=== PATIENT | female | born 1935 | race Caucasian/White ===

== ENCOUNTER 2016-06-16 18:08 | Inpatient (IN) | payer MEDICARE, OTHER ==
[~2016-06-16] VITALS: Ht 154.9 cm; Wt 81.2 kg
[~2016-06-16 18:08] MED LIST: ASPI81CH CHEW; BUME1TAB PO; CARD240C6 PO; CEFT250T8 PO; CLAR10CA3 PO; LEVO75TA3 PO; OXYB5TAB10 PO; POTA10TA8 PO; PRED10 PO; VENTAER INH
[2016-06-16 18:32] VITALS: BP 189/80; PULSE 75; RESP 16; TEMP 98; O2SAT 97
[2016-06-16 18:36] VITALS: BP 189/80; PULSE 79; RESP 16; O2SAT 98
[2016-06-16] MEDS ORDERED: SODIUM CHLORIDE 0.9% FLUSH 5 ML FLUSH IVF PRN ×2 (18:45→21:00)
--- NOTE | 2016-06-16 19:24 | PD ---
HPI Chief Complaint: Neuro Symptoms/ Deficits Time Seen by Provider: 18:35 Travel History International Travel<30 days: No Contact w/Intl Traveler<30days: No Traveled to known affect area: No History of Present Illness HPI 80yo F with PMH of HTN, CHF, afib not on anticoagulation, CKD, CAD presents to the ED with c/o slurred speech that resolved today. Pt was on the phone with daughter at around 2pm and daughter states she had slurred speech. Daughter states she went to see her at around 4:30pm and her speech has improved but not at baseline. States now it is better but thinks she has fear in her voice. Pt has been feeling generalized weakness since last night. Denies any fall, chest pain, sob, n/v, abdominal pain, focal numbness. Pt has been recently treated for UTI. Pt was here at [place] 04/2016 for SOB and had been admitted for observation. Pt states she did not take her aspirin today. PFSH Past Medical History Arthritis: Yes Anxiety: No Depression: No Heart Rhythm Problems: Yes (A FIB) Cancer: Yes (SKIN FACE) Cardiovascular Problems: Yes High Cholesterol: Yes Chest Pain: Yes Congestive Heart Failure: Yes Coronary Artery Disease: Yes Diabetes: No Diminished Hearing: No Endocrine: Yes Gastrointestinal Disorders: No Glaucoma: No Genitourinary: Yes (Stage 4 kidney disease) Hepatitis: No Hiatal Hernia: No Hypertension: Yes Immune Disorder: No Musculoskeletal: Yes Neurologic: Yes Psychiatric: No Reproductive: No Respiratory: No Immunizations Current: Yes Renal Failure: Yes (STAGE 4-NOT ON DIALYSIS) Thyroid Disease: Yes (Hypothyrodism) Influenza Vaccination: Yes ?: Not Menopausal: Yes : 5 Para: 5 Miscarriage: 0 : 0 Past Surgical History Abdominal Surgery: No Body Medical Devices: Left hip replacement Cardiac Surgery: Yes (PACEMAKER X 3) Ear Surgery: No Endocrine Surgery: No Eye Surgery: Yes (BL CATARACT REMOVAL, BL LENSE IMPLANTS) Genitourinary Surgery: No Gynecologic Surgery: No Joint Replacement: Yes (R KNEE, L HIP) Oral Surgery: No Pacemaker: Yes Thoracic Surgery: No Other Surgery: Yes Social History Alcohol Use: No Tobacco Use: No Substance Use: No Allergies-Medications (Allergen,Severity, Reaction): Coded Allergies: CRESTOR (Unverified Allergy, Severe, 06/16/16) Coumadin (Unverified Allergy, Severe, 06/16/16) Lipitor (Unverified Allergy, Severe, 06/16/16) Motrin (Unverified Allergy, Severe, 06/16/16) Paxil (Unverified Allergy, Severe, 06/16/16) Reported Meds & Prescriptions Reported Meds & Active Scripts Active Ceftin (Cefuroxime Axetil) 250 Mg Tab 250 Mg PO BID 7 Days Ventolin Hfa 18 GM Inh (Albuterol Sulfate) 90 Mcg/Act Aer 2 Puff INH Q4-6H PRN Prednisone 10 Mg Tab 10 Mg PO DIRECTED 9 Days Take THREE Times daily for 3 Days, then TWICE daily for 3 days, then ONCE a day for 3 Days. Reported Potassium Chloride CR (Potassium Chloride) 10 Meq Tab 10 Meq PO DAILY Ditropan (Oxybutynin Chloride) 5 Mg Tab 5 Mg PO DAILY Claritin (Loratadine) 10 Mg Cap 10 Mg PO DAILY Levothyroxine (Levothyroxine Sodium) 75 Mcg Tab 75 Mcg PO DAILY Cardizem CD 24 HR (Diltiazem CD 24 HR) 240 Mg Caper 240 Mg PO DAILY Bumetanide 1 Mg Tab 1 Mg PO BID Aspirin 81 Mg Chew 81 Mg CHEW BID Review of Systems Except as stated in HPI: all other systems reviewed are Neg Physical Exam Narrative GENERAL: 80yo F not in acute distress. SKIN: Warm and dry. HEAD: Atraumatic. Normocephalic. EYES: Pupils equal and round. No scleral icterus. No injection or drainage. ENT: No nasal bleeding or discharge. Mucous membranes pink and moist. NECK: Trachea midline. No JVD. CARDIOVASCULAR: Regular rate and rhythm. No murmur appreciated. RESPIRATORY: No accessory muscle use. Clear to auscultation. Breath sounds equal bilaterally. GASTROINTESTINAL: Abdomen soft, non-tender, nondistended. Hepatic and splenic margins not palpable. MUSCULOSKELETAL: No obvious deformities. No clubbing. No cyanosis. No edema. NEUROLOGICAL: Awake and alert. No obvious cranial nerve deficits. NIH stroke scale 4. Pt has some effort against gravity in bilateral lower extremity but falls to bed by 5 seconds. PSYCHIATRIC: Appropriate mood and affect; insight and judgment normal. Data Data Last Documented VS Vital Signs Date Time Temp Pulse Resp B/P Pulse Ox O2 Delivery O2 Flow Rate FiO2 06/16/16 20:05 16 98 Room Air 06/16/16 18:36 79 189/80 06/16/16 18:32 98.0 Orders Electrocardiogram (06/16/16 18:36) Prothrombin Time / Inr (Pt) (06/16/16 18:36) Act Partial Throm Time (Ptt) (06/16/16 18:36) Complete Blood Count With Diff (06/16/16 18:36) Basic Metabolic Panel (Bmp) (06/16/16 18:36) Troponin I (06/16/16 18:36) Urinalysis - C+S If Indicated (06/16/16 18:36) Ct Brain W/O Iv Contrast(Rout) (06/16/16 18:36) Ecg Monitoring (06/16/16 18:36) Iv Access Insert/Monitor (06/16/16 18:36) Oximetry (06/16/16 18:36) Sodium Chloride 0.9% Flush (Ns Flush) (06/16/16 18:45) Consult Neurology (06/16/16 ) Sodium Polysty Sulfate Liq (Kayexalate L (06/16/16 20:00) Aspirin Chew (Aspirin Chew) (06/16/16 20:00) Sodium Chlorid 0.9% 500 Ml Inj (Ns 500 M (06/16/16 20:00) (Hub Use Only)Inp Phy Cons/Ref (06/16/16 ) Urine Culture (06/16/16 20:00) Admit Order (Ed Use Only) (06/16/16 20:53) Admit To Inpatient (06/16/16 ) Vital Signs (Adult) Q2HX12,Q4H (06/16/16 20:53) Nih Stroke Scale - Nihss .Daily (06/16/16 20:53) Neuro Checks Q2HX12,Q4H (06/16/16 20:53) ^ Notify Dr: Other (06/16/16 20:53) Ot Request For Service (06/16/16 20:53) Pt Request For Service (06/16/16 20:53) St Request For Service (06/16/16 20:53) Case Management Consult (06/16/16 ) Activity Oob Ad Sindy (06/16/16 20:53) Nursing Bedside Swallow Assess .ONCE (06/16/16 20:53) Scd Bilateral/Knee High SANDY.QSHIFT (06/16/16 20:53) Hemoglobin (Hgb) A1c (06/16/16 20:53) Lipid Profile (06/17/16 06:00) Remove Urinary Catheter .ONCE (06/16/16 20:53) Sodium Chloride 0.9% Flush (Ns Flush) (06/16/16 21:00) Sodium Chloride 0.9% Flush (Ns Flush) (06/16/16 21:00) Bedside Glucose SANDY.AC&HS (06/16/16 20:53) Engraving Press Operator / Telemetry (06/16/16 20:53) Inpatient Certification (06/16/16 ) Basic Metabolic Panel (Bmp) (06/17/16 02:00) Basic Metabolic Panel (Bmp) (06/17/16 06:00) Labs Laboratory Tests Test 06/16/16 06/16/16 18:45 20:00 White Blood Count 7.4 TH/MM3 Red Blood Count 4.08 MIL/MM3 Hemoglobin 11.8 GM/DL Hematocrit 35.8 % Mean Corpuscular Volume 87.8 FL Mean Corpuscular Hemoglobin 28.9 PG Mean Corpuscular Hemoglobin 32.9 % Concent Red Cell Distribution Width 14.7 % Platelet Count 306 TH/MM3 Mean Platelet Volume 6.7 FL Neutrophils (%) (Auto) 60.1 % Lymphocytes (%) (Auto) 27.9 % Monocytes (%) (Auto) 9.1 % Eosinophils (%) (Auto) 1.7 % Basophils (%) (Auto) 1.2 % Neutrophils # (Auto) 4.4 TH/MM3 Lymphocytes # (Auto) 2.1 TH/MM3 Monocytes # (Auto) 0.7 TH/MM3 Eosinophils # (Auto) 0.1 TH/MM3 Basophils # (Auto) 0.1 TH/MM3 CBC Comment DIFF FINAL Differential Comment Prothrombin Time 10.5 SEC Prothromb Time International 1.0 RATIO Ratio Activated Partial 26.9 SEC Thromboplast Time Sodium Level 133 MEQ/L Potassium Level 5.6 MEQ/L Chloride Level 103 MEQ/L Carbon Dioxide Level 17.7 MEQ/L Anion Gap 12 MEQ/L Blood Urea Nitrogen 64 MG/DL Creatinine 4.54 MG/DL Estimat Glomerular Filtration 9 ML/MIN Rate Random Glucose 106 MG/DL Calcium Level 8.9 MG/DL Troponin I LESS THAN 0.02 NG/ML Urine Color LIGHT-YELLOW Urine Turbidity HAZY Urine pH 6.0 Urine Specific Gray 1.011 Urine Protein 300 mg/dL Urine Glucose (UA) NEG mg/dL Urine Ketones NEG mg/dL Urine Occult Blood TRACE Urine Nitrite NEG Urine Bilirubin NEG Urine Urobilinogen LESS THAN 2.0 MG/DL Urine Leukocyte Esterase NEG Urine RBC 1 /hpf Urine WBC 2 /hpf Urine Squamous Epithelial 1 /hpf Cells Urine Bacteria FEW /hpf Microscopic Urinalysis Comment CATH-CULTURE IND MDM Medical Decision Making Medical Screen Exam Complete: Yes Emergency Medical Condition: Yes Differential Diagnosis CVA vs. TIA vs. UTI vs. electrolyte abnormality Narrative Course 80yo F with generalized weakness since last night. Pt unable to keep lower extremities up for 5 seconds. Pt usually walks. Pt also with slurred speech that has resolved. Will do labs, EKG, CT brain and give aspirin if CT brain negative. Will place neuro consult and admit for possible TIA. Pt sign out to next team to follow up results. 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
[2016-06-16 19:25] LABS: AUTOMATED NEUTROPHIL # 4.4 TH/MM3 (1.8-7.7); BASOPHIL # 0.1 TH/MM3 (0-0.2); BASOPHIL % 1.2 % (0.0-2.0); EOSINOPHIL # 0.1 TH/MM3 (0-0.4); EOSINOPHIL % 1.7 % (0.0-4.0); HEMATOCRIT 35.8 % (35.0-46.0); HEMO FLAGS DIFF FINAL; LYMPH % 27.9 % (9.0-44.0); LYMPHOCYTE # 2.1 TH/MM3 (1.0-4.8); MEAN CELL VOLUME 87.8 FL (80.0-100.0); MEAN CORPUSCULAR HEMOGLOBIN 28.9 PG (27.0-34.0); MEAN CORPUSCULAR HGB CONC 32.9 % (32.0-36.0); MONO % 9.1 % (0.0-8.0); NEUT % 60.1 % (16.0-70.0); PLATELET COUNT 306 TH/MM3 (150-450); RED BLOOD COUNT 4.08 MIL/MM3 (4.00-5.30); RED CELL DISTRIBUTION WIDTH 14.7 % (11.6-17.2); WHITE BLOOD COUNT 7.4 TH/MM3 (4.0-11.0)
[2016-06-16 19:39] LABS: ANION GAP 12 MEQ/L (5-15); BICARBONATE 17.7 MEQ/L (21.0-32.0); BLOOD UREA NITROGEN 64 MG/DL (7-18); CHLORIDE 103 MEQ/L (98-107); GLOMERULAR FILTRATION RATE 9 ML/MIN (>89); POTASSIUM 5.6 MEQ/L (3.5-5.1); SODIUM (NA) 133 MEQ/L (136-145)
[2016-06-16 19:40] LABS: APTT (PATIENT) 26.9 SEC (24.3-30.1); PROTHROMBIN TIME - PATIENT 10.5 SEC (9.8-11.6)
--- NOTE | 2016-06-16 19:46 | PD ---
Data Data Last Documented VS Vital Signs Date Time Temp Pulse Resp B/P Pulse Ox O2 Delivery O2 Flow Rate FiO2 06/16/16 20:05 16 98 Room Air 06/16/16 18:36 79 189/80 06/16/16 18:32 98.0 Orders Electrocardiogram (06/16/16 18:36) Prothrombin Time / Inr (Pt) (06/16/16 18:36) Act Partial Throm Time (Ptt) (06/16/16 18:36) Complete Blood Count With Diff (06/16/16 18:36) Basic Metabolic Panel (Bmp) (06/16/16 18:36) Troponin I (06/16/16 18:36) Urinalysis - C+S If Indicated (06/16/16 18:36) Ct Brain W/O Iv Contrast(Rout) (06/16/16 18:36) Ecg Monitoring (06/16/16 18:36) Iv Access Insert/Monitor (06/16/16 18:36) Oximetry (06/16/16 18:36) Sodium Chloride 0.9% Flush (Ns Flush) (06/16/16 18:45) Consult Neurology (06/16/16 ) Sodium Polysty Sulfate Liq (Kayexalate L (06/16/16 20:00) Aspirin Chew (Aspirin Chew) (06/16/16 20:00) Sodium Chlorid 0.9% 500 Ml Inj (Ns 500 M (06/16/16 20:00) (Hub Use Only)Inp Phy Cons/Ref (06/16/16 ) Urine Culture (06/16/16 20:00) Admit Order (Ed Use Only) (06/16/16 20:53) Admit To Inpatient (06/16/16 ) Vital Signs (Adult) Q2HX12,Q4H (06/16/16 20:53) Nih Stroke Scale - Nihss .Daily (06/16/16 20:53) Neuro Checks Q2HX12,Q4H (06/16/16 20:53) ^ Notify Dr: Other (06/16/16 20:53) Ot Request For Service (06/16/16 20:53) Pt Request For Service (06/16/16 20:53) St Request For Service (06/16/16 20:53) Case Management Consult (06/16/16 ) Activity Oob Ad Sindy (06/16/16 20:53) Nursing Bedside Swallow Assess .ONCE (06/16/16 20:53) Scd Bilateral/Knee High SANDY.QSHIFT (06/16/16 20:53) Diet Npo (06/17/16 Breakfast) Hemoglobin (Hgb) A1c (06/16/16 20:53) Lipid Profile (06/17/16 06:00) Remove Urinary Catheter .ONCE (06/16/16 20:53) Sodium Chloride 0.9% Flush (Ns Flush) (06/16/16 21:00) Sodium Chloride 0.9% Flush (Ns Flush) (06/16/16 21:00) Bedside Glucose SANDY.AC&HS (06/16/16 20:53) Coffee Shop Aide / Telemetry (06/16/16 20:53) Inpatient Certification (06/16/16 ) Basic Metabolic Panel (Bmp) (06/17/16 02:00) Basic Metabolic Panel (Bmp) (06/17/16 06:00) Labs Laboratory Tests Test 06/16/16 06/16/16 18:45 20:00 White Blood Count 7.4 TH/MM3 Red Blood Count 4.08 MIL/MM3 Hemoglobin 11.8 GM/DL Hematocrit 35.8 % Mean Corpuscular Volume 87.8 FL Mean Corpuscular Hemoglobin 28.9 PG Mean Corpuscular Hemoglobin 32.9 % Concent Red Cell Distribution Width 14.7 % Platelet Count 306 TH/MM3 Mean Platelet Volume 6.7 FL Neutrophils (%) (Auto) 60.1 % Lymphocytes (%) (Auto) 27.9 % Monocytes (%) (Auto) 9.1 % Eosinophils (%) (Auto) 1.7 % Basophils (%) (Auto) 1.2 % Neutrophils # (Auto) 4.4 TH/MM3 Lymphocytes # (Auto) 2.1 TH/MM3 Monocytes # (Auto) 0.7 TH/MM3 Eosinophils # (Auto) 0.1 TH/MM3 Basophils # (Auto) 0.1 TH/MM3 CBC Comment DIFF FINAL Differential Comment Prothrombin Time 10.5 SEC Prothromb Time International 1.0 RATIO Ratio Activated Partial 26.9 SEC Thromboplast Time Sodium Level 133 MEQ/L Potassium Level 5.6 MEQ/L Chloride Level 103 MEQ/L Carbon Dioxide Level 17.7 MEQ/L Anion Gap 12 MEQ/L Blood Urea Nitrogen 64 MG/DL Creatinine 4.54 MG/DL Estimat Glomerular Filtration 9 ML/MIN Rate Random Glucose 106 MG/DL Calcium Level 8.9 MG/DL Troponin I LESS THAN 0.02 NG/ML Urine Color LIGHT-YELLOW Urine Turbidity HAZY Urine pH 6.0 Urine Specific [place] 1.011 Urine Protein 300 mg/dL Urine Glucose (UA) NEG mg/dL Urine Ketones NEG mg/dL Urine Occult Blood TRACE Urine Nitrite NEG Urine Bilirubin NEG Urine Urobilinogen LESS THAN 2.0 MG/DL Urine Leukocyte Esterase NEG Urine RBC 1 /hpf Urine WBC 2 /hpf Urine Squamous Epithelial 1 /hpf Cells Urine Bacteria FEW /hpf Microscopic Urinalysis Comment CATH-CULTURE IND MDM Medical Record Reviewed: Yes Supervised Visit with SUPA: No Interpretation(s) Last Impressions Head CT 06/16/16 1836 Signed Impressions: Service Date/Time: Thursday, June 16, 2016 19:21 - CONCLUSION: 1. No acute findings. Chronic white matter ischemic changes similar to 2013. El Calhoun MD Carotid Artery Ultrasound 06/16/16 0000 Signed Impressions: Service Date/Time: Thursday, June 16, 2016 21:59 - CONCLUSION: Bilateral bifurcation atherosclerotic plaque, mild to moderate on the right and moderate on the left. No hemodynamically significant narrowing. Demar Montes MD Narrative Course During the course of the patients emergency department visit, the patients history, examination, and differential diagnosis were reviewed with the patient. The patient had IV access obtained and blood work sent for analysis. The patient's was on a compliance monitor with oximetry and blood pressure monitoring. The patient was initially evaluated by Dr. Broussard. Please see her complete history and physical. Dr. Broussard requested that I review the patient's laboratory studies and that the patient be admitted for suspected TIA. The patient was provided normal saline a 500 mL bolus 1. Aspirin 324 mg by mouth 1. The patients laboratory studies were reviewed and remarkable for a CBC that is unremarkable, BMP is remarkable for sodium of 133, potassium 5.6, CO2 17.7, BUN 64, creatinine 4.54, GFR is 9, PT 10.5, PTT 26.9. Given the patient's hyperkalemia the patient's EKG will be reviewed. I suspect that the patient's potassium is legitimately elevated as the patient does have a history of renal insufficiency and acute on chronic renal failure from comparing her prior blood studies. The patient's last BUN and creatinine were 43 and 3.206 actively on May 11, 2016. The patient will be given Kayexalate by mouth 1. Radiology studies were reviewed and remarkable for a CT scan of the brain that showed no acute findings, chronic white matter ischemic changes were noted. The patients results were discussed with the patient, including the plan of care. I explained that further testing and/ or monitoring is indicated based on the patients history, examination, and/ or laboratory findings. Therefore, I recommended admission for additional evaluation. The patient expressed understanding and was agreeable with this plan. The patient was admitted to the hospital in stable condition and sent to a bed under the care of the [facility] service. Physician Communication Physician Communication The patient's case was discussed with Dr. Brito who did agree to admit the patient for further evaluation and treatment at this time. Diagnosis Primary Impression: Neurological symptoms Additional Impressions: Acute on chronic renal failure Hyperkalemia Admitting Information Admitting Physician Requests: Admit Silvia Tadeo MD Jun 16, 2016 19:46
--- NOTE | 2016-06-16 19:49 | RADRPT ---
EXAM DATE/TIME: 06/16/2016 19:21 [facility] COMPARISON: CT BRAIN W/O CONTRAST, February 15, 2013, 20:06. INDICATIONS : Weakness with slurred speech. RADIATION DOSE: 34.50 CTDIvol (mGy) MEDICAL HISTORY : Cardiovascular disease. Hypertension. Renal insufficiency. SURGICAL HISTORY : None. ENCOUNTER: Initial ACUITY: 1 day PAIN SCALE: 0/10 LOCATION: cranial TECHNIQUE: Multiple contiguous axial images were obtained of the head. Using automated exposure control and adj ustment of the mA and/or kV according to patient size, radiation dose was kept as low as reasonably a chievable to obtain optimal diagnostic quality images. FINDINGS: No intracranial mass, hemorrhage or shift. No hydrocephalus. No recent infarct identified. Chronic wh ite matter ischemic changes are noted. No acute bony abnormalities. CONCLUSION: 1. No acute findings. Chronic white matter ischemic changes similar to 2012. El Calhoun MD on June 16, 2016 at 19:45 Board Certified Radiologist. This report was verified electronically.
[2016-06-16] MEDS ORDERED: ASPIRIN 81 MG CHEW TAB CHEW ONE (20:00)
[2016-06-16] MEDS ORDERED: SODIUM CHLORID 0.9% 500 ML INJ 500 ML IV ONE (20:00)
[2016-06-16] MEDS ORDERED: SODIUM POLYSTYRENE SULFONATE SUSP 15 GM/60 ML CUP PO ONE ×2 (20:00→23:45)
[2016-06-16 20:05] VITALS: RESP 16; O2SAT 98
[2016-06-16 20:31] LABS: BACTERIA, URINE FEW /hpf; BLOOD, URINE TRACE (NEG); GLUCOSE,URINE NEG (NEG); KETONE, URINE NEG (NEG); NITRITE,URINE NEG (NEG); SQUAMOUS EPITHELIAL CELL URINE 1 /hpf (0-5); URINE COLOR LIGHT-YELLOW (YELLW/STRAW)
[2016-06-16 20:36] LABS: COMMENT (UR) CATH-CULTURE IND; CULTURE IF INDICATED CATH CULTURE IND
[2016-06-16] MEDS: SODIUM CHLORIDE 0.9% FLUSH 5 ML FLUSH IVF SCH (22:04)
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
--- NOTE | 2016-06-16 23:53 | RADRPT ---
EXAM DATE/TIME: 06/16/2016 21:59 [place] COMPARISON: No previous studies available for comparison. INDICATIONS : Transient ischemic attack. MEDICAL HISTORY : Hypercholesterolemia. Hypothyroidism. Hypertension. Myocardial infarction. Congestive heart failure. Coronary artery disease. Afib. . Stage 4 renal disease. Arthritis. Osteoporosis. Skin cancer . Blood transfusion. SURGICAL HISTORY : Pacemaker. Bilateral cataract removal. Bilateral lens implants. Left hip replacement. Right knee replacement. ENCOUNTER: Initial ACUITY: 1 day PAIN SCORE: 0/10 LOCATION: Bilateral neck PEAK SYSTOLIC VELOCITIES (cm/sec): ICA/CCA RATIO: Right: 1.1 Left: 1.5 ICA: Right: 94 Left: 105 CCA: Right: 89 Left: 68 ECA: Right: 81 Left: 110 VERTEBRAL: Right: 78 antegrade Left: 49 antegrade Elevated flow velocities and ICA/CCA ratios have been found to correlate with increased degrees of vessel stenosis, calculated as percentage of diameter relative to a normal segment of distal ICA/CCA FINDINGS: RIGHT CAROTID: Mild to moderate plaque seen at the bulb and proximal internal carotid artery with estimated 30-50% n arrowing of the proximal ICA.. LEFT CAROTID: Moderate plaque seen of the bulb and proximal internal carotid artery with estimated 50% narrowing of the proximal ICA. VERTEBRAL ARTERIES: Antegrade flow is seen in both vertebral arteries. MISCELLANEOUS: None. CONCLUSION: Bilateral bifurcation atherosclerotic plaque, mild to moderate on the right and moderate on the left. No hemodynamically significant narrowing. Demar Montes MD on June 16, 2016 at 23:50 Board Certified Radiologist. This report was verified electronically.
[2016-06-17] VITALS (10 sets, daily range): BP systolic 120–213; BP diastolic 67–93; PULSE 65–118; RESP 16–20; TEMP 97.7–98.7; O2SAT 95–100
[2016-06-17 02:51] LABS: BICARBONATE 15.3 MEQ/L (21.0-32.0); POTASSIUM 3.3 MEQ/L (3.5-5.1)
[2016-06-17 03:16] LABS: CALCIUM-PROTEIN CORRECTED 6.8 MG/DL (8.5-10.1)
[2016-06-17 05:04] LABS: BICARBONATE 19.8 MEQ/L (21.0-32.0); POTASSIUM 5.5 MEQ/L (3.5-5.1)
[2016-06-17 05:06] LABS: HDL CHOLESTEROL 85.9 MG/DL (40.0-60.0)
[2016-06-17] MEDS ORDERED: DEXTROSE 50% IN WATER 50 ML VIAL(D50) IV PUSH ONE (05:30)
[2016-06-17] MEDS ORDERED: CALCIUM GLUCONATE 10% 1 GM/10 ML VIAL IV PUSH ONE (05:30)
[2016-06-17] MEDS ORDERED: INSULIN HUMAN REGULAR 1,000 UNITS/10 ML VIAL IVP ONE (05:30)
[2016-06-17] MEDS ORDERED: SODIUM POLYSTYRENE SULFONATE SUSP 15 GM/60 ML CUP PO ONE (05:30)
[2016-06-17] MEDS ORDERED: CALCIUM GLUCONATE INJ 1 GM in DEXTROSE 5% IN WATER 100ML INJ 100 ML IV ONE ×2 (05:45)
--- NOTE | 2016-06-17 08:10 | PD.CONS ---
History of Present Illness Service Neurology Consult Requested By er Reason for Consult tia Primary Care Physician James Mejia MD History of Present Illness 80 y/o f admitted for possible tia/stroke. pt poor hx and states her daughter called evac as pt was "weak". she does not remember any problems with speech but that is reported in the records. she takes aspirin, has a hx of afib, pacemaker and is on HD for CRF. ambulates with a walker at baseline and has caregivers. this am, no ayon, cp, focal weakness, numbness or vision loss. feels well. ct brain naicp. glucose 106. carotid u/s no hemodynamically significant stenosis. Review of Systems Other as above and admit hp Past Family Social History Past Medical History Hypertension Atrial fibrillation Status post pacemaker placementlikely sick sinus syndrome CHF Stage IV chronic kidney disease Past Surgical History Pacemaker placement Left hip replacement Right knee surgery Reported Medications Patient's medications listed in EMRreviewed Allergies: Coded Allergies: CRESTOR (Unverified Allergy, Severe, 06/16/16) Coumadin (Unverified Allergy, Severe, 06/16/16) Lipitor (Unverified Allergy, Severe, 06/16/16) Motrin (Unverified Allergy, Severe, 06/16/16) Paxil (Unverified Allergy, Severe, 06/16/16) Family History Reports of her father who from [place] at 52 years old Social History Denies ever smoking in her life. denies any alcohol abuse or drug abuse. Review of Systems All other ROS: ROS reviewed as documented in chart Past Family Social History Allergies: Coded Allergies: CRESTOR (Unverified Allergy, Severe, 06/16/16) Coumadin (Unverified Allergy, Severe, 06/16/16) Lipitor (Unverified Allergy, Severe, 06/16/16) Motrin (Unverified Allergy, Severe, 06/16/16) Paxil (Unverified Allergy, Severe, 06/16/16) Active Ordered Medications Current Medications Medications (Trade) Dose Ordered Sig/Ariana Route Start Time Stop Time Status Last Admin (NS Flush) 2 ml BID IVF 06/16/16 21:00 06/16/16 22:04 (NS Flush) 2 ml UNSCH PRN IVF 06/16/16 21:00 (Catapres) 0.1 mg Q6H PRN PO 06/17/16 02:00 (Bumetanide) 1 mg BID PO 06/17/16 09:00 (Cardizem Cd) 240 mg DAILY PO 06/17/16 09:00 UNV (Synthroid) 75 mcg DAILY PO 06/17/16 09:00 UNV (Claritin) 10 mg DAILY PO 06/17/16 09:00 UNV (Ditropan) 5 mg DAILY PO 06/17/16 09:00 UNV (KCl) 10 meq DAILY PO 06/17/16 09:00 UNV Exam I&O / VS Vital Signs Date Time Temp Pulse Resp B/P Pulse Ox O2 Delivery O2 Flow Rate FiO2 06/17/16 07:37 97.9 89 17 120/78 96 06/17/16 06:11 97.8 106 18 132/91 97 06/17/16 05:24 65 06/17/16 03:14 98.7 68 18 128/67 98 06/17/16 02:09 70 16 144/72 100 Room Air 06/17/16 01:09 79 20 213/93 99 Room Air 06/16/16 20:05 16 98 Room Air 06/16/16 18:36 79 16 189/80 98 Room Air 06/16/16 18:32 98.0 75 16 189/80 97 General: Alert and Oriented, No acute distress Eye: EOMI Respiratory: Non-labored respirations Neurologic: Alert Psychiatric: Cooperative, Appropriate mood & affect Exam Comments alert, ox 1-2. not to date. unable to name president. eomi, vff, ou 3mm sluggish , ou surgical cataract extraction changes, able to name. follows, face sym, mild left ue distal paresis, able to raise all 4 ext to gravity but <10 secs in le, reduced pin in denilson le stocking, msr depressed, no clonus, planter flexor response Review/Management Diagnosis/Plan: (1) TIA (transient ischemic attack) Plan: possible left mca tia; has mild left ue distal weakness and cognitive d/o- ? baseline vs new allergies to statin rec OAC if non-valvular afib; but advanced age and renal failure card input on above p.t. o.t. 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
[2016-06-17] MEDS ORDERED: POTASSIUM CHLORIDE 10 MEQ CONTROLLED RELEASE TAB PO SCH (09:00)
[2016-06-17] MEDS ORDERED: BUMETANIDE 1 MG TAB PO SCH (09:00)
[2016-06-17] MEDS: OXYBUTYNIN CHLORIDE 5 MG TAB PO SCH (09:20)
[2016-06-17] MEDS: DILTIAZEM-CD 240 MG CAP ER PO SCH (09:20)
[2016-06-17] MEDS: LORATADINE 10 MG TAB PO SCH (09:20)
[2016-06-17] MEDS: CLOPIDOGREL 75 MG TAB PO SCH (09:20)
[2016-06-17] MEDS: SODIUM CHLORIDE 0.9% FLUSH 5 ML FLUSH IVF SCH ×2 (09:20→20:50)
[2016-06-17] MEDS: HEPARIN SODIUM - SQ 10,000 UNITS/ML VIAL SQ SCH ×2 (09:22→20:51)
[2016-06-17] MEDS: LEVOTHYROXINE SODIUM 75 MCG TAB PO SCH (09:27)
--- NOTE | 2016-06-17 09:29 | HHI.PR ---
Subjective Remarks Follow-up for slurred speech and hyperkalemia. The patient denies any chest pain, shortness breath, palpitations, nausea, vomiting. Reports good urine output. She normally ambulates with a walker at baseline, has home health nursing daily. She does have some generalized weakness. She follows with Dr. Betancourt with nephrology, states he hasn't talked to her about dialysis. Objective Vitals Vital Signs Date Time Temp Pulse Resp B/P Pulse Ox O2 Delivery O2 Flow Rate FiO2 06/17/16 09:07 80 06/17/16 07:37 97.9 89 17 120/78 96 06/17/16 06:11 97.8 106 18 132/91 97 06/17/16 05:24 65 06/17/16 03:14 98.7 68 18 128/67 98 06/17/16 02:09 70 16 144/72 100 Room Air 06/17/16 01:09 79 20 213/93 99 Room Air 06/16/16 20:05 16 98 Room Air 06/16/16 18:36 79 16 189/80 98 Room Air 06/16/16 18:32 98.0 75 16 189/80 97 Result Diagram: 06/16/16 1845 06/17/16 0428 Imaging Last Impressions Head CT 06/16/16 1836 Signed Impressions: Service Date/Time: Thursday, June 16, 2016 19:21 - CONCLUSION: 1. No acute findings. Chronic white matter ischemic changes similar to 2013. El Calhoun MD Carotid Artery Ultrasound 06/16/16 0000 Signed Impressions: Service Date/Time: Thursday, June 16, 2016 21:59 - CONCLUSION: Bilateral bifurcation atherosclerotic plaque, mild to moderate on the right and moderate on the left. No hemodynamically significant narrowing. Demar Montes MD Objective Remarks GENERAL: Well-developed well-nourished. In no acute distress. SKIN: Warm and dry. No lesions noted. HEENT: Normocephalic. Pupils equal and round. Mucous membranes pink and moist. CARDIOVASCULAR: Regular rate and rhythm. No murmur appreciated. RESPIRATORY: No accessory muscle use. Clear to auscultation. Breath sounds equal bilaterally. GASTROINTESTINAL: Abdomen soft, non-tender, nondistended. Bowel sounds x4. MUSCULOSKELETAL: No obvious deformities. No clubbing or cyanosis. No edema. NEUROLOGICAL: Awake and alert. No focal neurological deficits. Moves upper and lower extremities spontaneously. Normal speech. PSYCHIATRIC: Appropriate mood and affect; insight and judgment normal. A/P Problem List: (1) Neurological symptoms ICD Code: R29.90 Status: Acute (2) Hyperkalemia ICD Code: E87.5 Status: Acute (3) Acute on chronic renal failure ICD Code: N17.9 Status: Acute (4) Atrial fibrillation ICD Code: I48.91 Status: Acute Assessment and Plan 80-year-old female with past medical history of HTN, A. fib, CHF, CKD who presented with slurred speech TIA: Transient episode of slurred speech. Head CT with no acute changes, chronic white matter ischemic changes stable from previous. Carotid ultrasound with moderate atherosclerotic plaque bilaterally, but no hemodynamically significant narrowing. PT/OT/SGPT. Neurology consulted, patient needs anticoagulation if okay with cardiology, started on Plavix. LDL 100, HDL 85, allergy to statin. NUVIA on CKD stage IV: Creatinine 4.5, previously 3.2 on 05/11/16. Hold Bumex for now. Consult patient's stretching machine tender frame. Hyperkalemia: Probably from renal failure as above. Potassium 5.6, given Kayexalate in the ED, repeat potassium 5.5 after initial lab error. Given additional Kayexalate, IV calcium, insulin, D5. Follow-up BMP. Renal diet. Atrial fibrillation: Continue rate control with Cardizem. Needs anticoagulation , however only on aspirin due to history of possible occult GI bleeding. Cardiology consulted by neurology. DVT prophylaxis: Heparin Written by Jeff Jennings, acting as scribe for Dr. Pattesron on 06/17/16 at 09:29. The documentation accurately reflects the work performed [id number] by me Dr. Patterson on 06/17/16 at 09:29. Discharge Planning Disposition pending clinical course. Problem Qualifiers (1) Atrial fibrillation: Qualified Code: I48.91 - Atrial fibrillation, unspecified type Jeff Jennings Jun 17, 2016 09:29 Kelin Patterson MD Jun 17, 2016 14:05
--- NOTE | 2016-06-17 11:16 | PD.CONS ---
HPI Service Nephrology Consult Requested By Reason for Consult Elevated creatinine, hyperkalemia Primary Care Physician James Mejia MD History of Present Illness This is a 80 y/o female brought in for stroke like sx. On arrival she was found to have severe renal impairment and hyperkalemia. She has underlying cKD 4-5. Hyperkalemia was treated with IV insulin and bicarbonate. she has no complaints and is a full code, pleasantly forgetful. we were consulted for renal management. (Irene Espinoza) Review of Systems Constitutional: DENIES: Fatigue Neurologic: COMPLAINS OF: Abnormal gait, Localized weakness, DENIES: Headache (Irene Espinoza) Past Family Social History Allergies: Coded Allergies: CRESTOR (Unverified Allergy, Severe, 06/16/16) Coumadin (Unverified Allergy, Severe, 06/16/16) Lipitor (Unverified Allergy, Severe, 06/16/16) Motrin (Unverified Allergy, Severe, 06/16/16) Paxil (Unverified Allergy, Severe, 06/16/16) Past Medical History Hypertension Atrial fibrillation Status post pacemaker placementlikely sick sinus syndrome CHF Stage IV chronic kidney disease Past Surgical History Pacemaker placement Left hip replacement Right knee surgery Reported Medications Ceftin (Cefuroxime Axetil) 250 Mg Tab 250 Mg PO BID 7 Days Ventolin Hfa 18 GM Inh (Albuterol Sulfate) 90 Mcg/Act Aer 2 Puff INH Q4-6H PRN Prednisone 10 Mg Tab 10 Mg PO DIRECTED 9 Days Take THREE Times daily for 3 Days, then TWICE daily for 3 days, then ONCE a day for 3 Days. Potassium Chloride CR (Potassium Chloride) 10 Meq Tab 10 Meq PO DAILY Ditropan (Oxybutynin Chloride) 5 Mg Tab 5 Mg PO DAILY Claritin (Loratadine) 10 Mg Cap 10 Mg PO DAILY Levothyroxine (Levothyroxine Sodium) 75 Mcg Tab 75 Mcg PO DAILY Cardizem CD 24 HR (Diltiazem CD 24 HR) 240 Mg Caper 240 Mg PO DAILY Bumetanide 1 Mg Tab 1 Mg PO BID Aspirin 81 Mg Chew 81 Mg CHEW BID Active Ordered Medications Current Medications Medications (Trade) Dose Ordered Sig/Ariana Route Start Time Stop Time Status Last Admin (NS Flush) 2 ml BID IVF 06/16/16 21:00 06/17/16 09:20 (NS Flush) 2 ml UNSCH PRN IVF 06/16/16 21:00 (Catapres) 0.1 mg Q6H PRN PO 06/17/16 02:00 (Bumetanide) 1 mg BID PO 06/17/16 09:00 Hold 06/17/16 09:20 (Cardizem Cd) 240 mg DAILY PO 06/17/16 09:00 06/17/16 09:20 (Synthroid) 75 mcg DAILY@0600 PO 06/17/16 09:00 06/17/16 09:27 (Claritin) 10 mg DAILY PO 06/17/16 09:00 06/17/16 09:20 (Ditropan) 5 mg DAILY PO 06/17/16 09:00 06/17/16 09:20 (KCl) 10 meq DAILY PO 06/17/16 09:00 UNV (Heparin Inj) 5,000 units BID SQ 06/17/16 09:00 06/17/16 09:22 (Plavix) 75 mg DAILY PO 06/17/16 09:00 06/17/16 09:20 Family History Unknown if any hx of Social History single, lives alone has a son non smoker, no eTOH she is retired (Irene Espinoza) Physical Exam Vital Signs Vital Signs Date Time Temp Pulse Resp B/P Pulse Ox O2 Delivery O2 Flow Rate FiO2 06/17/16 11:03 98.3 103 18 135/71 95 06/17/16 09:07 80 06/17/16 07:37 97.9 89 17 120/78 96 06/17/16 06:11 97.8 106 18 132/91 97 06/17/16 05:24 65 06/17/16 03:14 98.7 68 18 128/67 98 06/17/16 02:09 70 16 144/72 100 Room Air 06/17/16 01:09 79 20 213/93 99 Room Air 06/16/16 20:05 16 98 Room Air 06/16/16 18:36 79 16 189/80 98 Room Air 06/16/16 18:32 98.0 75 16 189/80 97 Physical Exam elderly female, awake, lying supine oriented x 3, some weakness (generalized) lungs; clear in all peña CV: no murmurs abd: round, obese, non tender ext: no edema Laboratory Laboratory Tests Test 06/16/16 06/16/16 06/17/16 06/17/16 18:45 20:00 02:15 04:28 White Blood Count 7.4 Red Blood Count 4.08 Hemoglobin 11.8 Hematocrit 35.8 Mean Corpuscular Volume 87.8 Mean Corpuscular Hemoglobin 28.9 Mean Corpuscular Hemoglobin 32.9 Concent Red Cell Distribution Width 14.7 Platelet Count 306 Mean Platelet Volume 6.7 Neutrophils (%) (Auto) 60.1 Lymphocytes (%) (Auto) 27.9 Monocytes (%) (Auto) 9.1 Eosinophils (%) (Auto) 1.7 Basophils (%) (Auto) 1.2 Neutrophils # (Auto) 4.4 Lymphocytes # (Auto) 2.1 Monocytes # (Auto) 0.7 Eosinophils # (Auto) 0.1 Basophils # (Auto) 0.1 CBC Comment DIFF FINAL Differential Comment Prothrombin Time 10.5 Prothromb Time International 1.0 Ratio Activated Partial 26.9 Thromboplast Time Sodium Level 133 148 136 Potassium Level 5.6 3.3 5.5 Chloride Level 103 123 107 Carbon Dioxide Level 17.7 15.3 19.8 Anion Gap 12 10 9 Blood Urea Nitrogen 64 41 61 Creatinine 4.54 2.72 4.53 Estimat Glomerular Filtration 9 17 9 Rate Random Glucose 106 66 96 Calcium Level 8.9 5.6 8.8 Troponin I LESS THAN 0.02 Urine Color LIGHT-YELLOW Urine Turbidity HAZY Urine pH 6.0 Urine Specific Lamy 1.011 Urine Protein 300 Urine Glucose (UA) NEG Urine Ketones NEG Urine Occult Blood TRACE Urine Nitrite NEG Urine Bilirubin NEG Urine Urobilinogen LESS THAN 2.0 Urine Leukocyte Esterase NEG Urine RBC 1 Urine WBC 2 Urine Squamous Epithelial 1 Cells Urine Bacteria FEW Microscopic Urinalysis Comment CATH-CULTURE IND Protein Corrected Calcium 6.8 Total Protein 4.4 Triglycerides Level 129 Cholesterol Level 212 LDL Cholesterol 100 HDL Cholesterol 85.9 Cholesterol/HDL Ratio 2.46 Date/Time Procedure Status Source Growth 06/16/16 20:00 Urine Culture Received Urine Catheterized Urine Pending (Irene Espinoza) Result Diagram: 06/16/16 1845 06/17/16 0428 Imaging Last [address] 06/16/16 1836 Signed Impressions: Service Date/Time: Thursday, June 16, 2016 19:21 - CONCLUSION: 1. No acute findings. Chronic white matter ischemic changes similar to 2013. El Calhoun MD Carotid Artery Ultrasound 06/16/16 0000 Signed Impressions: Service Date/Time: Thursday, June 16, 2016 21:59 - CONCLUSION: Bilateral bifurcation atherosclerotic plaque, mild to moderate on the right and moderate on the left. No hemodynamically significant narrowing. Demar Montes MD (Irene Espinoza) Assessment and Plan Problem List: (1) Acute on chronic renal failure Plan: she used to see Dr Betancourt but only saw him once and did not follow up she does have advanced renal dysfunction, in April creatinine 3.2, GFR 14, consistent with CKD 5 potassium elevated but she was taking oral replacement, this was stopped obviously now with metabolic acidosis I will begin IVF of d5W with 2 amps at 60cc/hr she was treated for hyperkalemia monitor urine output, quantify proteinuria she may require dialysis this admission, some what confused, will check with family on goals renal panel in am obtain 2d echo to evaluate LVEF avoid nephrotoxins (2) TIA (transient ischemic attack) Plan: neurology following , appreciate recommendations (Irene Espinoza) Assessment and Plan patient was seen and examined. Above note reviewed. Stop potassium supplementation. IVF with dextrose and bicarbonate to reduce potassium. Creatinine around 3 in April, and so there may be an acute component to her renal dysfunction. Will follow. Obtain renal US. 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
[2016-06-17] MEDS ORDERED: SODIUM BICARBONATE 8.4% INJ 100 MEQ in DEXTROSE 5% IN WATE 1000ML INJ 1,000 ML IV SCH ×2 (11:30)
--- NOTE | 2016-06-17 13:06 | MB ---
cc: DARIUS SULLIVAN MD DATE OF CONSULTATION: 06/17/2016 REASON FOR CONSULTATION: Evaluation for anticoagulation. HISTORY OF PRESENT ILLNESS Miss Pamela Haq is an 80-year-old patient my partner Dr. Meehan. She does have a history of atrial fibrillation and is status post pacemaker with subsequent lead revision and new [employer] generator in June 2014. The patient reports that she was brought to the hospital for weakness. She was apparently so weak that she could not get out of her chair. She denies any cardiac complaints to me and specifically denies any chest pain, shortness of breath or palpitations. PAST MEDICAL HISTORY: Past medical history significant for hypertension. Atrial fibrillation. Congestive heart failure. Chronic kidney disease. PAST SURGICAL HISTORY: surgical history includes the pacemaker. Left hip replacement. Right knee surgery. ALLERGIES CRESTOR COUMADIN LIPITOR MOTRIN PAXIL MEDICATIONS Per the record include 1. Cardizem and 240 mg a day. 2. Levofloxacin. 3. Claritin 4. Ditropan 5. Plavix FAMILY HISTORY Noncontributory REVIEW OF SYSTEMS Except what is mentioned in the history of present illness all 12 systems are negative. PHYSICAL EXAMINATION: VITAL SIGNS: 98.3, 103, 18, 135/71. IN GENERAL: She is a pleasant elderly female who is in no apparent distress. NECK: Her neck is free from jugular venous distention. LUNGS: The lungs are bilaterally clear to ascultation. CARDIOVASCULAR SYSTEM: She does have an irregularly irregular rhythm. No murmurs, rubs or gallops were appreciated. ABDOMEN: The abdomen is soft. EXTREMITIES: The extremities are free from edema. RADIOLOGIC: Telemetry shows atrial fibrillation at 90 beats minute. IMPRESSION Atrial fibrillation - the patient is currently well rate controlled. After speaking to her and verifying in the office she does have a history of previous GI bleed while on Coumadin. She apparently was also placed on Pradaxa more recently and became "purple from head to toe" thus she does not wish to be on any anticoagulants beyond aspirin. The patient and I did speak that she is at very significant risk for strokes and transient ischemic attacks, at least a rate of 10% per year. Despite this she does not wish to try again with any anticoagulation. Of note her Luis A's vasc score is at least 5 and probably 7, if we include the possible TIA (with a point also for female, over 75, hypertension and congestive heart failure). Transient ischemic attack - this is being imaged by neurology. I will be available on as needed basis and will be happy to see her if any further questions arise Wicho Honeycutt /12:27 PM /12:54 PM
--- NOTE | 2016-06-17 14:11 | EKG ---
Date Performed: 06/16/2016 Time Performed: 19:44:05 PTAGE: 80 years EKG: Atrial fibrillation with controlled v. response Intermittent VVI pacing Present tracing is largely paced so it is not directly comparable to prior tracing which was not paced ABNORMAL ECG PREVIOUS TRACING : 05/10/2016 16.21 DOCTOR: Alannah Torres Interpretating Date/Time 06/17/2016 14:10:36
--- NOTE | 2016-06-17 15:31 | EC ---
Study Study Date:06/17/2016 STUDY CONCLUSIONS SUMMARY - Left ventricle: The cavity size was normal. Wall thickness was normal. Systolic function was normal. The estimated ejection fraction was in the range of 60% to 65%. Wall motion was normal; there were no regional wall motion abnormalities. - Aortic valve: Valve area: 1.3cm^2(VTI). Valve area: 1.19cm^2 (Vmax). - Mitral valve: Mild regurgitation. Valve area by continuity equation (using LVOT flow): 0.94cm^2. - Pulmonary arteries: PA peak pressure: 43mm Hg (S). Impressions: No cardiac source of emboli was indentified. If LV function is below 40, please consider prescribing an ACEI or ARB or document rationale for non-use. PROCEDURE DATA STUDY STATUS: Elective. Procedure: Transthoracic echocardiography. Image quality was fair. Scanning was performed from the parasternal, apical, and subcostal acoustic windows. Study completion: The patient tolerated the procedure well. Transthoracic echocardiography. M-mode, complete 2D, complete spectral Doppler, and color Doppler. Height: Height: 61in. Weight: Weight: 177.6lb. Body mass index: BMI: 33.6kg/m^2. Body surface area: BSA: 1.8m^2. Patient status: Inpatient. CARDIAC ANATOMY LEFT VENTRICLE: The cavity size was normal. Wall thickness was normal. Systolic function was normal. The estimated ejection fraction was in the range of 60% to 65%. Wall motion was normal; there were no regional wall motion abnormalities. AORTIC VALVE: Trileaflet; normal thickness leaflets. Doppler: Transvalvular velocity was within the normal range. There was no stenosis. No regurgitation. Valve area: 1.3cm^2(VTI). Indexed valve area: 0.72cm^2/m^2 (VTI). Valve area: 1.19cm^2 (Vmax). Indexed valve area: 0.66cm^2/m^2 (Vmax). Mean gradient: 3mm Hg (S). AORTA: Aortic root: The aortic root was normal in size. MITRAL VALVE: Structurally normal valve. Doppler: Transvalvular velocity was within the normal range. There was no evidence for stenosis. Mild regurgitation. Valve area by pressure half-time: 5.79cm^2. Indexed valve area by pressure half-time: 3.22cm^2/m^2. Valve area by continuity equation (using LVOT flow): 0.94cm^2. Indexed valve area by continuity equation (using LVOT flow): 0.52cm^2/m^2. Mean gradient: 2mm Hg (D). Peak gradient: 4mm Hg (D). LEFT ATRIUM: The atrium was normal in size. RIGHT VENTRICLE: The cavity size was normal. Wall thickness was normal. PULMONIC VALVE: Doppler: Transvalvular velocity was within the normal range. There was no evidence for stenosis. No regurgitation. TRICUSPID VALVE: Structurally normal valve. Doppler: Transvalvular velocity was within the normal range. No regurgitation. PULMONARY ARTERY: The main pulmonary artery was normal-sized. Systolic pressure was within the normal range. RIGHT ATRIUM: The atrium was normal in size. PERICARDIUM: There was no pericardial effusion. SYSTEMIC VEINS: Inferior vena cava: The vessel was normal in size. Patient weight: 177.6lb _Ejection fraction:_ 65-75% _Fractional shortening:_ 32% up to 5Kg 5-11.5Kg 11.6-22.9Kg 23-45Kg 45-57Kg Aortic Root 7-13 <17 13-22 17-27 17-27 LA diam 6-13 <23 24-38 33-47 37-40 RVID 10-17 7-15 7-15 7-18 8-17 LVIDd 12-22 <32 24-38 33-47 37-40 LVPW 2-4 3-6 5-7 6-8 7-8 IVS 2-4 3-6 5-7 6-8 7-8 BASIC MEASUREMENTS ADULT NORMAL Left ventricle LV internal dimension, ED, chordal 44.1 mm 43-52 level, PLAX LV internal dimension, ES, chordal 31.3 mm 23-38 level, PLAX Fractional shortening, chordal level, *29 % >29 PLAX LV posterior wall thickness, ED 10.1 mm IVS/LVPW ratio, ED 0.99 <1.3 Ventricular septum Septal thickness, ED 10 mm Aorta Root diameter, ED 30 mm Left atrium Anterior-posterior dimension 37 mm Anterior-posterior dimension index 2.06 cm/m^2 <2.2 DOPPLER MEASUREMENTS ADULT NORMAL Main pulmonary artery Pressure, S *43 mm Hg =30 Aortic valve Peak velocity, S 102 cm/s Mean velocity, S 68.9 cm/s VTI, S 22.5 cm Mean gradient, S 3 mm Hg Valve area, VTI 1.3 cm^2 Valve area index, VTI 0.72 cm^2/m^2 Valve area, Vmax 1.19 cm^2 Valve area index, Vmax 0.66 cm^2/m^2 Mitral valve Peak E-wave velocity 103 cm/s Mean velocity, D 59.4 cm/s Pressure half-time 38 ms Mean gradient, D 2 mm Hg Peak gradient, D 4 mm Hg Valve area, pressure half-time 5.79 cm^2 Valve area index, pressure half-time 3.22 cm^2/m^2 Valve area, LVOT continuity 0.94 cm^2 Valve area index, LVOT continuity 0.52 cm^2/m^2 Tricuspid valve Regurgitant peak velocity 304 cm/s Peak RV-RA gradient, S 37 mm Hg Maximal regurgitant velocity 304 cm/s Systemic veins Estimated CVP 5 mm Hg Right ventricle RV pressure, S *44 mm Hg <30 Pulmonic valve Peak velocity, S 43.3 cm/s LEGEND: Mean values are shown as u=mean value. Asterisk (*) salvador values outside specified normal range. Ariana Pimentel [id number]
[2016-06-17 15:35] LABS: HEMOGLOBIN A1a 1.1 %; HEMOGLOBIN A1b 2.1 %; HEMOGLOBIN Ao 83.3 %; HEMOGLOBIN LA1C 2.5 %; HEMOGLOBIN P3 6.2 %
--- NOTE | 2016-06-17 22:49 | RADRPT ---
EXAM DATE/TIME: 06/17/2016 21:39 [place] COMPARISON: No previous studies available for comparison. EXTERNAL COMPARISON : [facility], KIDNEY-BILATERAL, January 02, 2012 INDICATIONS : Increased BUN and Creatinine. MEDICAL HISTORY : Hypercholesterolemia. Hypothyroidism. Hypertension. Myocardial infarction. Congestive heart failure. Coronary artery disease. Afib. . Stage 4 renal disease. Arthritis. Osteoporosis. Skin cancer . Blood transfusion. SURGICAL HISTORY : Pacemaker. Bilateral cataract removal. Bilateral lens implants. Left hip replacement. Right knee replacement. ENCOUNTER: Subsequent ACUITY: 1 day PAIN SCORE: 0/10 LOCATION: Bilateral flank MEASUREMENTS: RIGHT KIDNEY: 9.8 x 5.2 x 4.1 cm LEFT KIDNEY: 7.8 x 4.8 x 3.1 cm FINDINGS: The kidneys are small and echogenic. They are somewhat ill-defined and difficult to measure. Hydronep hrosis is not seen. The bladder is unremarkable. CONCLUSION: Small echogenic kidneys consistent with medical renal disease. Demar Wilson MD on June 17, 2016 at 22:46 Board Certified Radiologist. This report was verified electronically.
[2016-06-18] VITALS (7 sets, daily range): BP systolic 124–160; BP diastolic 70–104; PULSE 68–125; RESP 16–18; TEMP 97.8–99.2; O2SAT 93–98
[2016-06-18] MEDS: LEVOTHYROXINE SODIUM 75 MCG TAB PO SCH (06:20)
[2016-06-18 06:54] LABS: BICARBONATE 22.4 MEQ/L (21.0-32.0); MAGNESIUM 2.3 MG/DL (1.5-2.5); POTASSIUM 4.1 MEQ/L (3.5-5.1)
--- NOTE | 2016-06-18 07:45 | HHI.PR ---
Review/Management Diagnosis/Plan: (1) TIA (transient ischemic attack) Plan: possible left mca tia; has mild left ue distal weakness and cognitive d/o- ? baseline vs new allergies to statin rec OAC if non-valvular afib; but advanced age and renal failure cardiology d/w pt and she declines OAC plavix, s/b d/w pt. agrees to tx d/c planning, outpatient f/u in 2-3 weeks (2) Atrial fibrillation (3) Pacemaker (4) Chronic kidney disease, stage IV (severe) Plan: on hd (5) Other abnormalities of gait and mobility Plan: uses a walker Subjective Subjective Comments No acute events reported No headache No chest pain No dyspnea Active Medications Current Medications Medications (Trade) Dose Ordered Sig/Ariana Route Start Time Stop Time Status Last Admin (NS Flush) 2 ml BID IVF 06/16/16 21:00 06/17/16 09:20 (NS Flush) 2 ml UNSCH PRN IVF 06/16/16 21:00 (Catapres) 0.1 mg Q6H PRN PO 06/17/16 02:00 (Bumetanide) 1 mg BID PO 06/17/16 09:00 Hold 06/17/16 09:20 (Cardizem Cd) 240 mg DAILY PO 06/17/16 09:00 06/17/16 09:20 (Synthroid) 75 mcg DAILY@0600 PO 06/17/16 09:00 06/18/16 06:20 (Claritin) 10 mg DAILY PO 06/17/16 09:00 06/17/16 09:20 (Ditropan) 5 mg DAILY PO 06/17/16 09:00 06/17/16 09:20 (Heparin Inj) 5,000 units BID SQ 06/17/16 09:00 06/17/16 20:51 Clopidogrel Bisulfate 75 mg 75 mg DAILY PO 06/17/16 09:00 06/17/16 09:20 (Sodium Bicarbonate 8.4% Inj/D5W 1000 ml Inj) 1,100 ml @ 50 mls/hr Q22H IV 06/17/16 11:30 06/17/16 12:26 Allergies Allergies Coded Allergies CRESTOR (Unverified Allergy, Severe, 06/16/16) Coumadin (Unverified Allergy, Severe, 06/16/16) Lipitor (Unverified Allergy, Severe, 06/16/16) Motrin (Unverified Allergy, Severe, 06/16/16) Paxil (Unverified Allergy, Severe, 06/16/16) Review of Systems All other ROS: ROS reviewed as documented in chart Exam I&O / VS Vital Signs Date Time Temp Pulse Resp B/P Pulse Ox O2 Delivery O2 Flow Rate FiO2 06/18/16 04:21 98.6 94 16 152/72 93 06/17/16 18:52 97.7 118 17 173/88 96 06/17/16 15:50 97.8 96 18 97 06/17/16 11:03 98.3 103 18 135/71 95 06/17/16 09:07 80 General: Alert and Oriented, No acute distress Eye: EOMI Respiratory: Non-labored respirations Neurologic: Alert Psychiatric: Cooperative, Appropriate mood & affect Exam Comments alert, ox 1-2. not to date. unable to name president. eomi, vff, ou 3mm sluggish , ou surgical cataract extraction changes, able to name. follows, face sym, mild left ue distal paresis, able to raise all 4 ext to gravity but <10 secs in le, reduced pin in denilson le stocking, msr depressed, no clonus, planter flexor response Objective Micro and Labs Laboratory Tests Test 06/18/16 05:38 Sodium Level 136 Potassium Level 4.1 Chloride Level 103 Carbon Dioxide Level 22.4 Anion Gap 11 Blood Urea Nitrogen 57 Creatinine 4.34 Estimat Glomerular Filtration 10 Rate Random Glucose 105 Calcium Level 8.5 Phosphorus Level 4.6 Magnesium Level 2.3 Albumin 3.2 Date/Time Procedure Status Source Growth 06/16/16 20:00 Urine Culture - Preliminary Resulted Urine Catheterized Urine RESULTS PENDING Problem Qualifiers (1) TIA (transient ischemic attack): Qualified 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
[2016-06-18] MEDS: LORATADINE 10 MG TAB PO SCH (08:01)
[2016-06-18] MEDS: DILTIAZEM-CD 240 MG CAP ER PO SCH (08:01)
[2016-06-18] MEDS: CLOPIDOGREL 75 MG TAB PO SCH (08:02)
[2016-06-18] MEDS: SODIUM CHLORIDE 0.9% FLUSH 5 ML FLUSH IVF SCH ×2 (08:02→21:57)
[2016-06-18] MEDS: HEPARIN SODIUM - SQ 10,000 UNITS/ML VIAL SQ SCH ×2 (08:02→21:57)
[2016-06-18] MEDS: OXYBUTYNIN CHLORIDE 5 MG TAB PO SCH (08:16)
[2016-06-18] MEDS ORDERED: DEXT 5%-NACL 0.45% 1000 ML INJ 1,000 ML IV SCH (10:00)
--- NOTE | 2016-06-18 10:42 | HHI.PR ---
Subjective Remarks Follow-up for TIA and CKD. The patient feels better today. She denies any slurred speech, weakness, swallowing difficulties, vision changes. Normal urine output. Tolerating diet. Objective Vitals Vital Signs Date Time Temp Pulse Resp B/P Pulse Ox O2 Delivery O2 Flow Rate FiO2 06/18/16 09:16 125 18 160/104 96 06/18/16 04:21 98.6 94 16 152/72 93 06/17/16 18:52 97.7 118 17 173/88 96 06/17/16 15:50 97.8 96 18 97 06/17/16 11:03 98.3 103 18 135/71 95 Result Diagram: 06/16/16 1845 06/18/16 0538 Imaging Last Impressions Renal Ultrasound 06/17/16 0000 Signed Impressions: Service Date/Time: Friday, June 17, 2016 21:39 - CONCLUSION: Small echogenic kidneys consistent with medical renal disease. Demar Wilson MD Head CT 06/16/16 1836 Signed Impressions: Service Date/Time: Thursday, June 16, 2016 19:21 - CONCLUSION: 1. No acute findings. Chronic white matter ischemic changes similar to 2013. El Calhoun MD Carotid Artery Ultrasound 06/16/16 0000 Signed Impressions: Service Date/Time: Thursday, June 16, 2016 21:59 - CONCLUSION: Bilateral bifurcation atherosclerotic plaque, mild to moderate on the right and moderate on the left. No hemodynamically significant narrowing. Demar Montes MD Objective Remarks GENERAL: Well-developed well-nourished. In no acute distress. SKIN: Warm and dry. No lesions noted. HEENT: Normocephalic. Pupils equal and round. EOMs intact. Mucous membranes pink and moist. CARDIOVASCULAR: Regular rate and rhythm. No murmur appreciated. RESPIRATORY: No accessory muscle use. Clear to auscultation. Breath sounds equal bilaterally. GASTROINTESTINAL: Abdomen soft, non-tender, nondistended. Bowel sounds x4. MUSCULOSKELETAL: No obvious deformities. No clubbing or cyanosis. No edema. NEUROLOGICAL: Awake and alert. No focal neurological deficits. Moves upper and lower extremities spontaneously. Normal speech. Strength 5/5. PSYCHIATRIC: Appropriate mood and affect; insight and judgment normal. A/P Problem List: (1) Neurological symptoms ICD Code: R29.90 Status: Acute (2) Hyperkalemia ICD Code: E87.5 Status: Acute (3) Acute on chronic renal failure ICD Code: N17.9 Status: Acute (4) Atrial fibrillation ICD Code: I48.91 Status: Acute Assessment and Plan 80-year-old female with past medical history of HTN, A. fib, CHF, CKD who presented with slurred speech TIA: Transient episode of slurred speech. Head CT with no acute changes, chronic white matter ischemic changes stable from previous. Carotid ultrasound with moderate atherosclerotic plaque bilaterally, but no hemodynamically significant narrowing. PT/OT/ST. Neurology consulted, recommended anticoagulation, but the patient declined, started Plavix, discharge planning. LDL 100, HDL 85, allergy to statin. 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 Hold Bumex for now. Consulted nephrology, checking urine protein and renal ultrasound. May need to initiate dialysis seen. Hyperkalemia: Probably from renal failure as above. Potassium 5.6, given Kayexalate in the ED, repeat potassium 5.5 after initial lab error. Given additional Kayexalate, IV calcium, insulin, D5. Started on IVF with D5 and bicarbonate by nephrology. Follow-up BMP. Renal diet. Atrial fibrillation: Continue rate control with Cardizem. Would benefit from anticoagulation, however only on aspirin due to history of occult GI bleeding on full anticoagulation. Cardiology consulted and discuss anticoagulation options with the patient, who declines full anticoagulation. Started on Plavix. Elevated BP: Clonidine as needed. DVT prophylaxis: Heparin Written by Jeff Jennings, acting as scribe for Dr. Patterson on 06/18/16 at 10:42. The documentation accurately reflects the work performed [id number] by ct Dr. Patterson on 06/18/16 at 10:42. Discharge Planning Follow-up nephrology recommendations. Problem Qualifiers (1) Atrial fibrillation: Qualified Code: I48.91 - Atrial fibrillation, unspecified type Jeff Jennings Jun 18, 2016 10:42 Kelin Patterson MD Jun 18, 2016 13:18
[2016-06-18] MEDS: cloNIDine HCL 0.1 MG TAB PO PRN (11:49)
--- NOTE | 2016-06-18 11:52 | HHI.NPPN ---
Subjective Complaints: Obesity Renal Failure: Chronic, Acute Interval History Daughter is at bedside. The pt looks well. Renal function only slightly better. Potassium has corrected. (Irene Espinoza) Objective Data Data Vital Signs Date Time Temp Pulse Resp B/P Pulse Ox O2 Delivery O2 Flow Rate FiO2 06/18/16 09:16 125 18 160/104 96 06/18/16 08:00 82 06/18/16 04:21 98.6 94 16 152/72 93 06/17/16 18:52 97.7 118 17 173/88 96 06/17/16 15:50 97.8 96 18 97 (Irene Espinoza) -: 06/16/16 1845 06/18/16 0538 Imaging Last 72 hours Impressions Renal Ultrasound 06/17/16 0000 Signed Impressions: Service Date/Time: Friday, June 17, 2016 21:39 - CONCLUSION: Small echogenic kidneys consistent with medical renal disease. Demar Wilson MD Head CT 06/16/16 1836 Signed Impressions: Service Date/Time: Thursday, June 16, 2016 19:21 - CONCLUSION: 1. No acute findings. Chronic white matter ischemic changes similar to 2013. El Calhoun MD Carotid Artery Ultrasound 06/16/16 0000 Signed Impressions: Service Date/Time: Thursday, June 16, 2016 21:59 - CONCLUSION: Bilateral bifurcation atherosclerotic plaque, mild to moderate on the right and moderate on the left. No hemodynamically significant narrowing. Demar Montes MD (Irene Espinoza) Physical Exam General Appearance: Well Developed, Well Nourished, No Acute Distress (Irene Espinoza) Eyes Eye Exam: Pupils Equal (Irene Espinoza) Throat Throat Exam: Oral Mucosa [place] & Moist (Irene Espinoza) Neck Neck Exam: Neck Supple (Irene Espinoza) Pulmonary Resp Exam: Clear Bilaterally, Breath Sounds Equal, No Distress (Irene Espinoza) Cardiology CV Exam: Regular, Normal Sinus Rhythm, Good Perfusion (Irene Espinoza) Gastrointestinal/Abdomen GI Exam: Soft, Non-Tender, Bowel Sounds Present (Irene Espinoza) Musculoskeletal MS Exam: Joints Intact, Normal Gait, Normal Tone (Irene Espinoza) Integumentary Skin Exam: Clear, Warm, Dry, Intact (Irene Espinoza) Extremeties Extremities Exam: No Edema, Pedal Pulses Palpable, Trace Edema (Irene Espinoza) Neurologic Neuro Exam: Alert, Awake, Oriented, Speech Clear, Moving All Extremities ( Irene Espinoza) Assessment/Plan Assessment Summary: Proteinuria, Hypertension, CKD Stage V Problem List: (1) Acute on chronic renal failure Plan: she does have advanced renal dysfunction, in April creatinine 3.2, GFR 14, consistent with CKD 5 has only had slight improvement in renal function overnight renal US negative for acute issues K has corrected, no longer on oral replacement phosphorus is acceptable metabolic acidosis has corrected EF 60 %, but she is tolerating oral fluids, stop IVF monitor urine output she may require dialysis this admission, we did discuss the indications and types of dialysis with the pt and her daughter. Unsure if it is required this admission; we will reevaluate tomorrow discuss it again with the pt renal panel in am avoid nephrotoxins (2) TIA (transient ischemic attack) Plan: neurology following , appreciate recommendations she is on ASA and plavix, hx of severe GI bleeding with other anticoagulants (Irene Espinoza) Plan patient was seen and examined. Agree with above assessment and plan. We had a long discussion with patient's daughter. All the questions were answered. 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
[2016-06-19 00:18] VITALS: BP 141/75; PULSE 103; RESP 18; TEMP 99.8; O2SAT 94
[2016-06-19] MEDS: LEVOTHYROXINE SODIUM 75 MCG TAB PO SCH (05:50)
[2016-06-19 05:58] VITALS: BP 129/60; PULSE 84; RESP 18; TEMP 97.8; O2SAT 95
[2016-06-19 06:42] LABS: BICARBONATE 24.7 MEQ/L (21.0-32.0); POTASSIUM 4.5 MEQ/L (3.5-5.1)
[2016-06-19 08:05] VITALS: PULSE 85
--- NOTE | 2016-06-19 08:22 | HHI.PR ---
Review/Management Diagnosis/Plan: (1) TIA (transient ischemic attack) Plan: possible left mca tia; has mild left ue distal weakness and cognitive d/o- ? baseline vs new allergies to statin arf on crf- being seen by renal rec neuro stable plavix, s/b d/w pt. agrees to tx d/c planning from neuro, outpatient f/u in 2-3 weeks (2) Atrial fibrillation (3) Pacemaker (4) Chronic kidney disease, stage IV (severe) Plan: seeing renal (5) Other abnormalities of gait and mobility Plan: uses a walker Subjective Subjective Comments No acute events reported No headache No chest pain No dyspnea Active Medications Current Medications Medications (Trade) Dose Ordered Sig/Ariana Route Start Time Stop Time Status Last Admin (NS Flush) 2 ml BID IVF 06/16/16 21:00 06/18/16 21:57 (NS Flush) 2 ml UNSCH PRN IVF 06/16/16 21:00 (Catapres) 0.1 mg Q6H PRN PO 06/17/16 02:00 06/18/16 11:49 (Bumetanide) 1 mg BID PO 06/17/16 09:00 Hold 06/17/16 09:20 (Cardizem Cd) 240 mg DAILY PO 06/17/16 09:00 06/18/16 08:01 (Synthroid) 75 mcg DAILY@0600 PO 06/17/16 09:00 06/19/16 05:50 (Claritin) 10 mg DAILY PO 06/17/16 09:00 06/18/16 08:01 (Ditropan) 5 mg DAILY PO 06/17/16 09:00 06/18/16 08:16 (Heparin Inj) 5,000 units BID SQ 06/17/16 09:00 06/18/16 21:57 (Plavix) 75 mg DAILY PO 06/17/16 09:00 06/18/16 08:02 Allergies Allergies Coded Allergies CRESTOR (Unverified Allergy, Severe, 06/16/16) Coumadin (Unverified Allergy, Severe, 06/16/16) Lipitor (Unverified Allergy, Severe, 06/16/16) Motrin (Unverified Allergy, Severe, 06/16/16) Paxil (Unverified Allergy, Severe, 06/16/16) Review of Systems All other ROS: ROS reviewed as documented in chart Exam I&O / VS 06/18/16 06/18/16 06/19/16 15:00 23:00 07:00 Intake Total 800 ml Balance 800 ml Intake IV Total 800 ml # Voids 4 # Bowel Movements 2 Vital Signs Date Time Temp Pulse Resp B/P Pulse Ox O2 Delivery O2 Flow Rate FiO2 06/19/16 05:58 97.8 84 18 129/60 95 06/19/16 00:18 99.8 103 18 141/75 94 06/18/16 23:49 84 06/18/16 20:38 99.2 81 18 136/70 94 06/18/16 17:37 98.0 68 18 141/74 98 06/18/16 12:06 97.8 71 18 124/87 98 06/18/16 09:16 125 18 160/104 96 General: Alert and Oriented, No acute distress Eye: EOMI Respiratory: Non-labored respirations Neurologic: Alert Psychiatric: Cooperative, Appropriate mood & affect Exam Comments alert, ox 1-2. not to date. pres Trump,. eomi, vff, ou 3mm sluggish, ou surgical cataract extraction changes, able to name. follows, face sym, mild left ue distal paresis, able to raise all 4 ext to gravity but <10 secs in le, reduced pin in denilson le stocking, msr depressed, no clonus, planter flexor response Objective Micro and Labs Laboratory Tests Test 06/19/16 05:44 Sodium Level 137 Potassium Level 4.5 Chloride Level 104 Carbon Dioxide Level 24.7 Anion Gap 8 Blood Urea Nitrogen 58 Creatinine 4.23 Estimat Glomerular Filtration 10 Rate Random Glucose 98 Calcium Level 9.1 Phosphorus Level 4.0 Albumin 3.1 Date/Time Procedure Status Source Growth 06/16/16 20:00 Urine Culture - Final Complete Urine Catheterized Urine NO GROWTH IN 48 HOURS. 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
[2016-06-19] MEDS: CLOPIDOGREL 75 MG TAB PO SCH (08:54)
[2016-06-19] MEDS: OXYBUTYNIN CHLORIDE 5 MG TAB PO SCH (08:54)
[2016-06-19] MEDS: LORATADINE 10 MG TAB PO SCH (08:54)
[2016-06-19] MEDS: DILTIAZEM-CD 240 MG CAP ER PO SCH (08:54)
[2016-06-19] MEDS: HEPARIN SODIUM - SQ 10,000 UNITS/ML VIAL SQ SCH ×2 (08:55→22:40)
[2016-06-19] MEDS: SODIUM CHLORIDE 0.9% FLUSH 5 ML FLUSH IVF SCH ×3 (08:56→22:40)
--- NOTE | 2016-06-19 10:16 | HHI.NPPN ---
Subjective Complaints: Obesity Renal Failure: Chronic, Acute Interval History Lying in bed. Renal function is stable, improved slightly. She has not gotten out of bed. (Irene Espinoza) Objective Data Data 06/18/16 06/19/16 19:00 07:00 Intake Total 800 ml Balance 800 ml Intake IV Total 800 ml # Voids 4 # Bowel Movements 2 Vital Signs Date Time Temp Pulse Resp B/P Pulse Ox O2 Delivery O2 Flow Rate FiO2 06/19/16 05:58 97.8 84 18 129/60 95 06/19/16 00:18 99.8 103 18 141/75 94 06/18/16 23:49 84 06/18/16 20:38 99.2 81 18 136/70 94 06/18/16 17:37 98.0 68 18 141/74 98 06/18/16 12:06 97.8 71 18 124/87 98 (Irene Espinoza) -: 06/16/16 1845 06/19/16 0544 Imaging Last 72 hours Impressions Renal Ultrasound 06/17/16 0000 Signed Impressions: Service Date/Time: Friday, June 17, 2016 21:39 - CONCLUSION: Small echogenic kidneys consistent with medical renal disease. Demar Wilson MD Head CT 06/16/16 1836 Signed Impressions: Service Date/Time: Thursday, June 16, 2016 19:21 - CONCLUSION: 1. No acute findings. Chronic white matter ischemic changes similar to 2013. El Calhoun MD (Irene Espinoza) Physical Exam General Appearance: Well Developed, Well Nourished, No Acute Distress (Irene Espinoza) Eyes Eye Exam: Pupils Equal (Irene Espinoza) Throat Throat Exam: Oral Mucosa [place] & Moist (Irene Espinoza) Neck Neck Exam: Neck Supple (Irene Espinoza) Pulmonary Resp Exam: Clear Bilaterally, Breath Sounds Equal, No Distress (Irene Espinoza) Cardiology CV Exam: Regular, Normal Sinus Rhythm, Good Perfusion (Irene Espinoza) Gastrointestinal/Abdomen GI Exam: Soft, Non-Tender, Bowel Sounds Present (Irene Espinoza) Musculoskeletal MS Exam: Joints Intact, Normal Gait, Normal Tone (Irene Espinoza) Integumentary Skin Exam: Clear, Warm, Dry, Intact (Irene Espinoza) Extremeties Extremities Exam: No Edema, Pedal Pulses Palpable, Trace Edema (Irene Espinoza) Neurologic Neuro Exam: Alert, Awake, Oriented, Speech Clear, Moving All Extremities ( Irene Espinoza) Assessment/Plan Assessment Summary: Proteinuria, Hypertension, CKD Stage V Problem List: (1) Acute on chronic renal failure Plan: she does have advanced renal dysfunction, in April creatinine 3.2, GFR 14, consistent with CKD 5 creatinine has improved K has corrected phosphorus is acceptable metabolic acidosis has corrected EF 60 %, but she is tolerating oral fluids, off IVF bumex is on hold monitor urine output, non oliguric she does not need dialysis this admission unless there is a change in her clinical condition. she will likely need dialysis at some point in the future. we will follow up outpatient, discussed with pt and daughter avoid nephrotoxins renal panel in am (2) TIA (transient ischemic attack) Plan: neurology following , appreciate recommendations she is on plavix, hx of severe GI bleeding with other anticoagulants can follow up outpatient (Irene Espinoza) Problem List: (1) Acute on chronic renal failure Plan: she does have advanced renal dysfunction, in April creatinine 3.2, GFR 14, consistent with CKD 5 creatinine has improved K has corrected phosphorus is acceptable metabolic acidosis has corrected EF 60 %, but she is tolerating oral fluids, off IVF bumex is on hold monitor urine output, non oliguric she does not need dialysis this admission unless there is a change in her clinical condition. she will likely need dialysis at some point in the future. we will follow up outpatient, discussed with pt and daughter avoid nephrotoxins renal panel in am (2) TIA (transient ischemic attack) Plan: neurology following , appreciate recommendations she is on plavix, hx of severe GI bleeding with other anticoagulants can follow up outpatient Plan patient was seen and examined. Agree with above assessment and plan. 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
--- NOTE | 2016-06-19 11:32 | HHI.PR ---
Subjective Remarks Follow up for TIA and CKD. The patient is awake, alert, seen with daughter at bedside. No further episodes of slurred speech. Denies any unilateral numbness/ weakness. Patient complaining of pain at the left lower extremity and left elbow. Patient agrees to rehab placement. Objective Vitals Vital Signs Date Time Temp Pulse Resp B/P Pulse Ox O2 Delivery O2 Flow Rate FiO2 06/19/16 05:58 97.8 84 18 129/60 95 06/19/16 00:18 99.8 103 18 141/75 94 06/18/16 23:49 84 06/18/16 20:38 99.2 81 18 136/70 94 06/18/16 17:37 98.0 68 18 141/74 98 06/18/16 12:06 97.8 71 18 124/87 98 I/O 06/18/16 06/18/16 06/18/16 06/19/16 06/19/16 06/19/16 07:00 15:00 23:00 07:00 15:00 23:00 Intake Total 800 ml Balance 800 ml Intake IV Total 800 ml # Voids 4 # Bowel Movements 2 Result Diagram: 06/16/16 1845 06/19/16 0544 Imaging Last Impressions Lower Extremity Ultrasound 06/19/16 0000 Signed Impressions: Service Date/Time: June 11:56 - CONCLUSION: 1. No DVT in the left leg. 2. Not mentioned above there is Ruiz's cyst measuring 3.3 x 5.8 x 1.4 cm. Kraig Metcalf MD Elbow X-Ray 06/19/16 0000 Signed Impressions: Service Date/Time: June 11:45 - CONCLUSION: 1. Small joint effusion. 2. No evidence of acute fracture. 3. 8mm and 5 mm periarticular or intra-articular ossicles identified anteriorly on the lateral view and adjacent to the radial head in the region of the radial collateral ligament. Randall Matson MD Renal Ultrasound 06/17/16 0000 Signed Impressions: Service Date/Time: Friday, June 17, 2016 21:39 - CONCLUSION: Small echogenic kidneys consistent with medical renal disease. Demar Wilson MD Head CT 06/16/16 1836 Signed Impressions: Service Date/Time: Thursday, June 16, 2016 19:21 - CONCLUSION: 1. No acute findings. Chronic white matter ischemic changes similar to 2013. El Calhoun MD Carotid Artery Ultrasound 06/16/16 0000 Signed Impressions: Service Date/Time: Thursday, June 16, 2016 21:59 - CONCLUSION: Bilateral bifurcation atherosclerotic plaque, mild to moderate on the right and moderate on the left. No hemodynamically significant narrowing. Demar Montes MD Objective Remarks GENERAL: Well-nourished, well-developed elderly female patient in [facility]. SKIN: Warm and dry. No rash. HEAD: Normocephalic. Atraumatic. EYES: Pupils equal and round. No scleral icterus. No injection or drainage. ENT: No nasal bleeding or discharge. Mucous membranes pink and moist. NECK: Supple. Trachea midline. CARDIOVASCULAR: Regular rate and rhythm. S1, S2 noted. No murmur appreciated. RESPIRATORY: No accessory muscle use. Clear to auscultation. Breath sounds equal bilaterally. GASTROINTESTINAL: Abdomen soft, non-tender, nondistended. Normoactive bowel sounds x4. MUSCULOSKELETAL: No obvious deformities. Extremities without clubbing, cyanosis , or edema. TTP at left elbow. TTP at left lower extremity throughout ankle and calf, with calf pain elicited with passive flexion of left ankle. NEUROLOGICAL: Awake and alert. No obvious cranial nerve deficits. Motor grossly within normal limits. Moves all extremities equally and spontaneously. Normal speech. No facial droop/lid lag/tongue deviation. PSYCHIATRIC: Appropriate mood and affect; insight and judgment normal. Medications and IVs Current Medications Medications (Trade) Dose Ordered Sig/Ariana Route Start Time Stop Time Status Last Admin (NS Flush) 2 ml BID IVF 06/16/16 21:00 06/19/16 08:56 (NS Flush) 2 ml UNSCH PRN IVF 06/16/16 21:00 (Catapres) 0.1 mg Q6H PRN PO 06/17/16 02:00 06/18/16 11:49 (Bumetanide) 1 mg BID PO 06/17/16 09:00 Hold 06/17/16 09:20 (Cardizem Cd) 240 mg DAILY PO 06/17/16 09:00 06/19/16 08:54 (Synthroid) 75 mcg DAILY@0600 PO 06/17/16 09:00 06/19/16 05:50 (Claritin) 10 mg DAILY PO 06/17/16 09:00 06/19/16 08:54 (Ditropan) 5 mg DAILY PO 06/17/16 09:00 06/19/16 08:54 (Heparin Inj) 5,000 units BID SQ 06/17/16 09:00 06/19/16 08:55 (Plavix) 75 mg DAILY PO 06/17/16 09:00 06/19/16 08:54 (Colace) 100 mg Q12HR PO 06/19/16 11:30 06/19/16 12:13 (Percocet 5-325 Mg) 1 tab Q6H PRN PO 06/19/16 11:30 06/19/16 12:13 Urinary Catheter: No Vascular Central Line Catheter: No A/P Problem List: (1) Neurological symptoms ICD Code: R29.90 Status: Acute (2) Hyperkalemia ICD Code: E87.5 Status: Acute (3) Acute on chronic renal failure ICD Code: N17.9 Status: Acute (4) Atrial fibrillation ICD Code: I48.91 Status: Acute Assessment and Plan 80-year-old female with past medical history of HTN, A. fib, CHF, CKD who presented with slurred speech TIA: Transient episode of slurred speech. Head CT with no acute changes, chronic white matter ischemic changes stable from previous. Carotid ultrasound with moderate atherosclerotic plaque bilaterally, but no hemodynamically significant narrowing. PT/OT/ST, recommends rehab, case management consulted. LDL 100, HDL 85, allergy to statin. Neurology consulted, recommended full OAC but the patient declined (hx of GIB on Coumadin and became "purple from head to toe" while on Pradaxa), therefore started Plavix, agrees discharge planning. 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 Held Bumex for now, metabolic acidosis corrected. Renal U/S showed small echogenic kidneys consistent with medical renal disease. Consulted nephrology, patient will likely need dialysis at some point in the future, plan for outpatient f/up. Check renal panel in the am. Hyperkalemia: from renal failure as above. Potassium 5.6, given Kayexalate in the ED, repeat potassium 5.5 after initial lab error. Given additional Kayexalate, IV calcium, insulin, D5. S/p IVF with D5 and bicarbonate by nephrology. Follow-up BMP showed K 4.5. Renal diet. Resolved. Atrial fibrillation: Continue rate control with Cardizem. Would benefit from anticoagulation with ChadsVasc >5, however only on aspirin due to history of occult GI bleeding on full anticoagulation. Cardiology consulted and discussed anticoagulation options with the patient, who declines full anticoagulation. Started on Plavix as above. HR stable. Elevated BP: Clonidine as needed. Left Ankle/Leg Pain: doppler U/S negative for DVT. Pain control with percocet prn. Left Elbow Pain: elbow xray with small joint effusion, no fracture, shows 8mm and 5mm periarticular ossicles. Continue pain control with perocet prn. DVT prophylaxis: Heparin Written by Shonna Bryant, acting as scribe for Dr. Lopez on 06/19/16 at 11: 25. Discharge Planning If repeat BMP stable tomorrow, can discharge to SNF. Case management consulted. Attending Statement The documentation accurately reflects the work performed [id number] by me on at 11:25. Problem Qualifiers (1) Atrial fibrillation: Qualified Code: I48.91 - Atrial fibrillation, unspecified type Shonna Bryant PA-C Jun 19, 2016 11:32 Nick Peter MD Jun 24, 2016 13:23
--- NOTE | 2016-06-19 12:05 | RADRPT ---
EXAM DATE/TIME: 06/19/2016 11:45 [facility] COMPARISON: No previous studies available for comparison. INDICATIONS : Left elbow pain, no known injury. MEDICAL HISTORY : None. SURGICAL HISTORY : None. ENCOUNTER: Subsequent ACUITY: 2 days PAIN SCORE: 7/10 LOCATION: Left elbow FINDINGS: 5 views of the left elbow. Bone alignment within normal limits. No evidence of fracture. 8mm ossific density in the region of the coronoid fossa anteriorly on the lateral view. 5 mm corticated ossicle i s seen in the region of the radial collateral ligament. These findings may be intra-articular or extr a-articular. No evidence of joint narrowing. CONCLUSION: 1. Small joint effusion. 2. No evidence of acute fracture. 3. 8mm and 5 mm periarticular or intra-articular ossicles identified anteriorly on the lateral view a nd adjacent to the radial head in the region of the radial collateral ligament. Randall Matson MD on June 19, 2016 at 11:59 Board Certified Radiologist. This report was verified electronically.
[2016-06-19] MEDS: DOCUSATE SODIUM 100 MG CAP PO SCH ×2 (12:13→22:40)
[2016-06-19] MEDS: oxyCODONE/ACETAMINOPHEN 5 MG/325 MG TAB PO PRN (12:13)
--- NOTE | 2016-06-19 12:16 | RADRPT ---
EXAM DATE/TIME: 06/19/2016 11:56 [facility] COMPARISON: No previous studies available for comparison. INDICATIONS : Left leg pain. MEDICAL HISTORY : Hypothyroidism. Myocardial infarction. Hypercholesterolemia. CAD. CHF. Afib. Chest pain. HTN. Stag e IV renal disease. UTI. Arthritis. Osteoporosis. Gait problems. SURGICAL HISTORY : Pacemaker. Total knee replacement, right. Bilateral cataract removal with lens implants. Left hip r eplacement. Blood tranfusions. ENCOUNTER: Initial ACUITY: 2 day PAIN SCORE: 6/10 LOCATION: Left leg. TECHNIQUE: Venous ultrasound of the leg was performed from the inguinal ligament to the proximal calf. Real-tony e, color Doppler and spectral tracing, compression and augmentation techniques were used. FINDINGS: There is normal compressibility of the deep venous system from the inguinal region to the proximal ca lf. No echogenic clot is seen in the lumen of the common femoral, femoral, popliteal, and posterior tibial veins. There is a normal response of the venous system to proximal and distal augmentation an d respiration. CONCLUSION: 1. No DVT in the left leg. 2. Not mentioned above there is Ruiz's cyst measuring 3.3 x 5.8 x 1.4 cm. Kraig Metcalf MD on June 19, 2016 at 12:14 Board Certified Radiologist. This report was verified electronically.
[2016-06-19 16:00] VITALS: BP 146/72; PULSE 73; RESP 22; TEMP 97.8; O2SAT 94
[2016-06-19 20:15] VITALS: BP 140/74; PULSE 74; RESP 18; TEMP 97.9; O2SAT 97
[2016-06-19 23:58] VITALS: PULSE 89
[2016-06-20] MEDS: cloNIDine HCL 0.1 MG TAB PO PRN (02:22)
[2016-06-20] MEDS: oxyCODONE/ACETAMINOPHEN 5 MG/325 MG TAB PO PRN ×2 (03:57→21:13)
[2016-06-20 04:00] VITALS: BP 138/68; PULSE 88; RESP 18; TEMP 98.8; O2SAT 97
[2016-06-20] MEDS: LEVOTHYROXINE SODIUM 75 MCG TAB PO SCH (06:08)
[2016-06-20 06:26] LABS: BICARBONATE 21.2 MEQ/L (21.0-32.0); POTASSIUM 4.4 MEQ/L (3.5-5.1)
[2016-06-20 07:43] VITALS: BP 138/96; PULSE 71; RESP 17; TEMP 97.8; O2SAT 94
[2016-06-20 08:03] VITALS: PULSE 82
[2016-06-20] MEDS: HEPARIN SODIUM - SQ 10,000 UNITS/ML VIAL SQ SCH ×2 (08:21→21:11)
[2016-06-20] MEDS: LORATADINE 10 MG TAB PO SCH (08:21)
[2016-06-20] MEDS: CLOPIDOGREL 75 MG TAB PO SCH (08:21)
[2016-06-20] MEDS: OXYBUTYNIN CHLORIDE 5 MG TAB PO SCH (08:21)
[2016-06-20] MEDS: DILTIAZEM-CD 240 MG CAP ER PO SCH (08:21)
[2016-06-20] MEDS: DOCUSATE SODIUM 100 MG CAP PO SCH ×2 (08:21→21:11)
[2016-06-20] MEDS: SODIUM CHLORIDE 0.9% FLUSH 5 ML FLUSH IVF SCH ×2 (08:22→21:00)
--- NOTE | 2016-06-20 09:51 | HHI.NPPN ---
Subjective Complaints: Obesity Renal Failure: Chronic, Acute Interval History Pt resting comfortably. Creatinine is better today. Apparently she was retaining urine therefore a perez was placed. 450 ml out immediately. (Irene Espinoza) Objective Data Data 06/19/16 06/20/16 19:00 07:00 Intake Total 700 ml Balance 700 ml Intake Oral 700 ml # Voids 3 1 Vital Signs Date Time Temp Pulse Resp B/P Pulse Ox O2 Delivery O2 Flow Rate FiO2 06/20/16 07:43 97.8 71 17 138/96 94 06/20/16 04:00 98.8 88 18 138/68 97 06/19/16 23:58 89 06/19/16 20:15 97.9 74 18 140/74 97 06/19/16 16:00 97.8 73 22 146/72 94 (Irene Espinoza) -: 06/16/16 1845 06/20/16 0520 Imaging Last 72 hours Impressions Lower Extremity Ultrasound 06/19/16 0000 Signed Impressions: Service Date/Time: June 11:56 - CONCLUSION: 1. No DVT in the left leg. 2. Not mentioned above there is Ruiz's cyst measuring 3.3 x 5.8 x 1.4 cm. Kraig Metcalf MD Elbow X-Ray 06/19/16 0000 Signed Impressions: Service Date/Time: June 11:45 - CONCLUSION: 1. Small joint effusion. 2. No evidence of acute fracture. 3. 8mm and 5 mm periarticular or intra-articular ossicles identified anteriorly on the lateral view and adjacent to the radial head in the region of the radial collateral ligament. Randall Matson MD Tubes & Lines: Perez (Irene Espinoza) Physical Exam General Appearance: Well Developed, Well Nourished, No Acute Distress, Sleeping ( Irene Espinoza) Eyes Eye Exam: Pupils Equal (Irene Espinoza) Throat Throat Exam: Oral Mucosa Slater & Moist (Irene Espinoza) Neck Neck Exam: Neck Supple (Irene Espinoza) Pulmonary Resp Exam: Clear Bilaterally, Breath Sounds Equal, No Distress (Irene Espinoza) Cardiology CV Exam: Regular, Normal Sinus Rhythm, Good Perfusion (Irene Espinoza) Gastrointestinal/Abdomen GI Exam: Soft, Non-Tender, Bowel Sounds Present (Irene Espinoza) Musculoskeletal MS Exam: Joints Intact, Normal Gait, Normal Tone (Irene Espinoza) Integumentary Skin Exam: Clear, Warm, Dry, Intact (Irene Espinoza) Extremeties Extremities Exam: No Edema, Pedal Pulses Palpable, Trace Edema (Irene Espinoza) Neurologic Neuro Exam: Alert, Awake, Oriented, Speech Clear, Moving All Extremities ( Irene Espinoza) Assessment/Plan Assessment Summary: Proteinuria, Hypertension, CKD Stage V Problem List: (1) Acute on chronic renal failure Plan: she does have advanced renal dysfunction, in April creatinine 3.2, GFR 14, consistent with CKD 5 creatinine has improved some since admission no current electrolyte concerns, acidosis has corrected she has perez due to urinary retention per nurses, did not void for 9 hrs yesterday and 450 ml urine immediately returned with a perez EF 60 %, bumex is on hold she does not need dialysis this admission unless there is a change in her clinical condition. we will follow up outpatient within 30 days to discuss plans for dialysis avoid nephrotoxins as far as retention goes will attempt voiding trial today, may have been due to positioning as she cannot get out of bed (2) TIA (transient ischemic attack) Plan: neurology following , appreciate recommendations she is on plavix, hx of severe GI bleeding with other anticoagulants can follow up outpatient (Irene Espinoza) Problem List: (1) Acute on chronic renal failure Plan: she does have advanced renal dysfunction, in April creatinine 3.2, GFR 14, consistent with CKD 5 creatinine has improved some since admission no current electrolyte concerns, acidosis has corrected she has perez due to urinary retention per nurses, did not void for 9 hrs yesterday and 450 ml urine immediately returned with a perez EF 60 %, bumex is on hold she does not need dialysis this admission unless there is a change in her clinical condition. we will follow up outpatient within 30 days to discuss plans for dialysis avoid nephrotoxins as far as retention goes will attempt voiding trial today, may have been due to positioning as she cannot get out of bed (2) TIA (transient ischemic attack) Plan: neurology following , appreciate recommendations she is on plavix, hx of severe GI bleeding with other anticoagulants can follow up outpatient Plan patient was seen and examined. Improvement in renal function. No immediate need for dialysis. Agree with above assessment and plan. 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
[2016-06-20 11:26] VITALS: BP 137/72; PULSE 80; O2SAT 96
--- NOTE | 2016-06-20 12:53 | HHI.PR ---
Subjective Remarks Follow up for TIA, CKD. The patient had an episode this morning with mumbled speech, and difficulty with coordination of the left arm picking up her drink. Daughter at bedside notices slight left sided facial droop. Daughter also noticing more cough today, nonproductive. The patient does not recall this happening. She denies any headache, lightheadedness, dizziness, unilateral weakness/numbness. Had long discussion with the patient and her daughter who are agreeable to starting on Coumadin. Objective Vitals Vital Signs Date Time Temp Pulse Resp B/P Pulse Ox O2 Delivery O2 Flow Rate FiO2 06/20/16 11:26 80 137/72 96 06/20/16 08:03 82 06/20/16 07:43 97.8 71 17 138/96 94 06/20/16 04:00 98.8 88 18 138/68 97 06/19/16 23:58 89 06/19/16 20:15 97.9 74 18 140/74 97 06/19/16 16:00 97.8 73 22 146/72 94 I/O 06/19/16 06/19/16 06/19/16 06/20/16 06/20/16 06/20/16 07:00 15:00 23:00 07:00 15:00 23:00 Intake Total 700 ml Balance 700 ml Intake Oral 700 ml # Voids 3 1 Result Diagram: 06/16/16 1845 06/20/16 0520 Imaging Last Impressions Head CT 06/20/16 0000 Signed Impressions: Service Date/Time: Monday, June 20, 2016 12:55 - CONCLUSION: Atrophy otherwise negative Felipe Pollack MD FACR Lower Extremity Ultrasound 06/19/16 0000 Signed Impressions: Service Date/Time: June 11:56 - CONCLUSION: 1. No DVT in the left leg. 2. Not mentioned above there is Ruiz's cyst measuring 3.3 x 5.8 x 1.4 cm. Kraig Metcalf MD Elbow X-Ray 06/19/16 0000 Signed Impressions: Service Date/Time: June 11:45 - CONCLUSION: 1. Small joint effusion. 2. No evidence of acute fracture. 3. 8mm and 5 mm periarticular or intra-articular ossicles identified anteriorly on the lateral view and adjacent to the radial head in the region of the radial collateral ligament. Randall Matson MD Renal Ultrasound 06/17/16 0000 Signed Impressions: Service Date/Time: Friday, June 17, 2016 21:39 - CONCLUSION: Small echogenic kidneys consistent with medical renal disease. Demar Wilson MD Carotid Artery Ultrasound 06/16/16 0000 Signed Impressions: Service Date/Time: Thursday, June 16, 2016 21:59 - CONCLUSION: Bilateral bifurcation atherosclerotic plaque, mild to moderate on the right and moderate on the left. No hemodynamically significant narrowing. Demar Montes MD Objective Remarks GENERAL: Well-nourished, well-developed elderly female patient in [facility]. SKIN: Warm and dry. No rash. HEAD: Normocephalic. Atraumatic. EYES: Pupils equal and round. No scleral icterus. No injection or drainage. ENT: No nasal bleeding or discharge. Mucous membranes pink and moist. NECK: Supple. Trachea midline. CARDIOVASCULAR: Irregular rate and rhythm. S1, S2 noted. No murmur appreciated. RESPIRATORY: No accessory muscle use. Clear to auscultation. Breath sounds equal bilaterally. GASTROINTESTINAL: Abdomen soft, non-tender, nondistended. Normoactive bowel sounds x4. MUSCULOSKELETAL: No obvious deformities. Extremities without clubbing, cyanosis , or edema. Mild TTP at left elbow. NEUROLOGICAL: Awake and alert. No obvious cranial nerve deficits. Motor grossly within normal limits. Moves all extremities equally and spontaneously, 5 /5 strength. Normal speech. No facial droop/lid lag/tongue deviation. PSYCHIATRIC: Appropriate mood and affect; insight and judgment fair. Medications and IVs Current Medications Medications (Trade) Dose Ordered Sig/Ariana Route Start Time Stop Time Status Last Admin (NS Flush) 2 ml BID IVF 06/16/16 21:00 06/19/16 08:56 (NS Flush) 2 ml UNSCH PRN IVF 06/16/16 21:00 (Catapres) 0.1 mg Q6H PRN PO 06/17/16 02:00 06/20/16 02:22 (Bumetanide) 1 mg BID PO 06/17/16 09:00 Hold 06/17/16 09:20 (Cardizem Cd) 240 mg DAILY PO 06/17/16 09:00 06/20/16 08:21 (Synthroid) 75 mcg DAILY@0600 PO 06/17/16 09:00 06/20/16 06:08 (Claritin) 10 mg DAILY PO 06/17/16 09:00 06/20/16 08:21 (Ditropan) 5 mg DAILY PO 06/17/16 09:00 06/20/16 08:21 (Heparin Inj) 5,000 units BID SQ 06/17/16 09:00 06/20/16 08:21 (Plavix) 75 mg DAILY PO 06/17/16 09:00 06/20/16 08:21 (Colace) 100 mg Q12HR PO 06/19/16 11:30 06/20/16 08:21 (Percocet 5-325 Mg) 1 tab Q6H PRN PO 06/19/16 11:30 06/20/16 03:57 Warfarin Sodium 3 mg 3 mg DAILY@1600 PO 06/20/16 16:00 (Coumadin Consult Pharmacy) 0 ml @ 0 mls/hr UNSCH OTHER 06/20/16 13:45 A/P Problem List: (1) Neurological symptoms ICD Code: R29.90 Status: Acute (2) Hyperkalemia ICD Code: E87.5 Status: Acute (3) Acute on chronic renal failure ICD Code: N17.9 Status: Acute (4) Atrial fibrillation ICD Code: I48.91 Status: Acute Assessment and Plan 80-year-old female with past medical history of HTN, A. fib, CHF, CKD who presented with slurred speech TIA: Transient episode of slurred speech. Head CT with no acute changes, chronic white matter ischemic changes stable from previous. Carotid ultrasound with moderate atherosclerotic plaque bilaterally, but no hemodynamically significant narrowing. PT/OT/ST, recommends rehab, case management consulted. LDL 100, HDL 85, allergy to statin. Neurology consulted, recommended full OAC, however the patient initially declined (hx of GIB on Coumadin and became " purple from head to toe" while on Pradaxa), agreed to plavix only. Now patient with recurrent TIA today 2/, discussed with Dr. Gómez who recommended repeat head CT, EEG, and again needs further OAC. Had long discussion with patient/ family who now agrees to Coumadin. 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 Held Bumex for now, metabolic acidosis corrected. Renal U/S showed small echogenic kidneys consistent with medical renal disease. Consulted nephrology, patient will likely need dialysis at some point in the future, plan for outpatient f/up. Monitor BMP. Hyperkalemia: from renal failure as above. Potassium 5.6, given Kayexalate in the ED, repeat potassium 5.5 after initial lab error. Given additional Kayexalate, IV calcium, insulin, D5. S/p IVF with D5 and bicarbonate by nephrology. Follow-up BMP showed K 4.5. Renal diet. Resolved. Atrial fibrillation: Continue rate control with Cardizem. Would benefit from anticoagulation with ChadsVasc >5, however only on aspirin due to history of occult GI bleeding on full anticoagulation. Cardiology consulted and discussed anticoagulation options with the patient, who declines full anticoagulation. Started on Plavix as above, however now pt agrees to Coumadin, will transition. HR stable. Elevated BP: Clonidine as needed. Left Ankle/Leg Pain: doppler U/S negative for DVT. Pain control with percocet prn. Left Elbow Pain: elbow xray with small joint effusion, no fracture, shows 8mm and 5mm periarticular ossicles. Continue pain control with perocet prn. Cough: started today 06/20. Check CXR. Check bedside swallow with ST. Monitor CBC. DVT prophylaxis: Heparin, transition to Coumadin Written by Shonna Bryant, acting as scribe for Dr. Lopez on 06/20/16 at 12: 37. Discharge Planning Needs SNF placement. Not yet ready for discharge, maybe in 1-2 days. Attending Statement The documentation accurately reflects the work performed [id number] by me on at 12:37. Problem Qualifiers (1) Atrial fibrillation: Qualified Code: I48.91 - Atrial fibrillation, unspecified type Shonna Bryant PA-C Jun 20, 2016 12:52 Nick Peter MD Jun 24, 2016 13:49
--- NOTE | 2016-06-20 13:12 | RADRPT ---
EXAM DATE/TIME: 06/20/2016 12:55 There is marked central and cortical atrophy with dilatation of ventricular and sulcal spaces. There is no parenchymal hemorrhage, acute infarction or mass lesion identified. There are no extra-axial fluid collections appreciated. The posterior fossa is unremarkable with midline fourth ventricle. T he portion of the orbits and paranasal sinuses visualized are unremarkable. CONCLUSION: Atrophy otherwise negative Felipe Pollack MD FACR on June 20, 2016 at 13:09 Board Certified Radiologist. This report was verified electronically.
[2016-06-20] MEDS ORDERED: INFO FOR PHARMACY/READ COMMENT XX ONE (13:45)
--- NOTE | 2016-06-20 14:37 | RADRPT ---
EXAM DATE/TIME: 06/20/2016 13:48 [facility] COMPARISON: CHEST SINGLE AP, May 10, 2016, 16:36. INDICATIONS: Cough and congestion. MEDICAL HISTORY: Hypothyroidism. Myocardial infarction. Hypercholesterolemia. CAD. CHF. A-fib. Hypertension. SURGICAL HISTORY: Pacemaker. ENCOUNTER: Initial ACUITY: 2 days PAIN SCORE: 0/10 LOCATION: Bilateral chest FINDINGS: Pacemaker implanted in the left chest. Heart and pulmonary vascularity are normal. Portion of bony skeleton visualized unremarkable. CONCLUSION: Pacer on the left otherwise negative. Felipe Pollack MD FACR on June 20, 2016 at 14:03 Board Certified Radiologist. This report was verified electronically.
[2016-06-20 15:28] VITALS: BP 142/67; PULSE 79; RESP 18; TEMP 98; O2SAT 96
[2016-06-20] MEDS ORDERED: WARFARIN SOD 3 MG TAB PO SCH (16:00)
[2016-06-20 18:46] LABS: INTERNATIONAL NORMALIZED RATIO 0.9 RATIO; PROTHROMBIN TIME - PATIENT 10.4 SEC (9.8-11.6)
[2016-06-20 19:45] VITALS: BP 130/58; PULSE 86; RESP 20; TEMP 97.6; O2SAT 95
--- NOTE | 2016-06-20 19:45 | MG ---
cc: JOSIANE PEPPER MD Lab No: [id number] Date: 06/20/2016 Age: 80 Sex: F Race: HISTORY: 80-year-old history of renal impairment and slurred speech. DESCRIPTION OF RECORD: Posterior rhythm demonstrates 5 to 7 Hz activity, 20-60 microvolts with bursts of delta activity, 2-3 Hz occurring, disorganized background. There is myogenic artifact in the frontal channels. Left temporal central couple of sharp transients. Limited driving with photic stimulation. Reduced driving with photic stimulation. Posterior rhythm did increment up to 6-7 Hz during episodes of arousal. INTERPRETATION: [id number] encephalopathy. Clinical correlation. Josiane Pepper MD /[facility] /7:25 PM /7:43 PM
[2016-06-21] VITALS (7 sets, daily range): BP systolic 129–150; BP diastolic 62–93; PULSE 75–91; RESP 18–22; TEMP 96.1–98.7; O2SAT 93–96
[2016-06-21 04:56] LABS: BASOPHIL # 0.1 TH/MM3 (0-0.2); BASOPHIL % 0.7 % (0.0-2.0); EOSINOPHIL # 0.1 TH/MM3 (0-0.4); EOSINOPHIL % 1.9 % (0.0-4.0); HEMATOCRIT 30.5 % (35.0-46.0); HEMO FLAGS DIFF FINAL; LYMPH % 22.9 % (9.0-44.0); LYMPHOCYTE # 1.8 TH/MM3 (1.0-4.8); MEAN CORPUSCULAR HEMOGLOBIN 29.3 PG (27.0-34.0); MEAN CORPUSCULAR HGB CONC 33.6 % (32.0-36.0); MONO % 9.8 % (0.0-8.0); NEUT % 64.7 % (16.0-70.0); PLATELET COUNT 212 TH/MM3 (150-450); RED BLOOD COUNT 3.51 MIL/MM3 (4.00-5.30); RED CELL DISTRIBUTION WIDTH 14.6 % (11.6-17.2); WHITE BLOOD COUNT 7.7 TH/MM3 (4.0-11.0)
[2016-06-21 05:10] LABS: INTERNATIONAL NORMALIZED RATIO 0.9 RATIO; PROTHROMBIN TIME - PATIENT 10.3 SEC (9.8-11.6)
[2016-06-21 05:22] LABS: BICARBONATE 20.2 MEQ/L (21.0-32.0); MAGNESIUM 2.3 MG/DL (1.5-2.5); POTASSIUM 4.6 MEQ/L (3.5-5.1)
[2016-06-21] MEDS: LEVOTHYROXINE SODIUM 75 MCG TAB PO SCH (05:41)
[2016-06-21] MEDS: DOCUSATE SODIUM 100 MG CAP PO SCH ×2 (08:58→20:56)
[2016-06-21] MEDS: HEPARIN SODIUM - SQ 10,000 UNITS/ML VIAL SQ SCH ×2 (08:58→20:56)
[2016-06-21] MEDS: LORATADINE 10 MG TAB PO SCH (08:58)
[2016-06-21] MEDS: DILTIAZEM-CD 240 MG CAP ER PO SCH (08:58)
[2016-06-21] MEDS: CLOPIDOGREL 75 MG TAB PO SCH (08:59)
[2016-06-21] MEDS: OXYBUTYNIN CHLORIDE 5 MG TAB PO SCH (08:59)
[2016-06-21] MEDS: SODIUM CHLORIDE 0.9% FLUSH 5 ML FLUSH IVF SCH ×2 (08:59→20:56)
--- NOTE | 2016-06-21 10:59 | HHI.PR ---
Subjective Remarks Follow-up for TIA, AMS, CKD. Patient seen with daughter at bedside. No further neurologic episodes overnight. No GI bleeding noted. Patient denies any abdominal pain. Objective Vitals Vital Signs Date Time Temp Pulse Resp B/P Pulse Ox O2 Delivery O2 Flow Rate FiO2 06/21/16 08:00 96.1 85 20 150/75 93 06/21/16 04:06 97.6 89 20 129/93 96 06/21/16 04:00 79 06/21/16 00:25 97.9 88 20 139/70 96 06/20/16 22:13 18 06/20/16 19:45 97.6 86 20 130/58 95 06/20/16 15:28 98.0 79 18 142/67 96 06/20/16 11:26 80 137/72 96 Result Diagram: 06/21/16 0423 06/21/16 0423 Imaging Last Impressions Head CT 06/20/16 0000 Signed Impressions: Service Date/Time: Monday, June 20, 2016 12:55 - CONCLUSION: Atrophy otherwise negative Felipe Pollack MD FACR Chest X-Ray 06/20/16 0000 Signed Impressions: Service Date/Time: Monday, June 20, 2016 13:48 - CONCLUSION: Pacer on the left otherwise negative. Felipe Pollack MD FACR Lower Extremity Ultrasound 06/19/16 0000 Signed Impressions: Service Date/Time: June 11:56 - CONCLUSION: 1. No DVT in the left leg. 2. Not mentioned above there is Ruiz's cyst measuring 3.3 x 5.8 x 1.4 cm. Kraig Metcalf MD Elbow X-Ray 06/19/16 0000 Signed Impressions: Service Date/Time: June 11:45 - CONCLUSION: 1. Small joint effusion. 2. No evidence of acute fracture. 3. 8mm and 5 mm periarticular or intra-articular ossicles identified anteriorly on the lateral view and adjacent to the radial head in the region of the radial collateral ligament. Randall Matson MD Renal Ultrasound 06/17/16 0000 Signed Impressions: Service Date/Time: Friday, June 17, 2016 21:39 - CONCLUSION: Small echogenic kidneys consistent with medical renal disease. Demar Wilson MD Carotid Artery Ultrasound 06/16/16 0000 Signed Impressions: Service Date/Time: Thursday, June 16, 2016 21:59 - CONCLUSION: Bilateral bifurcation atherosclerotic plaque, mild to moderate on the right and moderate on the left. No hemodynamically significant narrowing. Demar Montes MD Objective Remarks GENERAL: Well-developed well-nourished. In no acute distress. SKIN: Warm and dry. No lesions noted. HEENT: Normocephalic. Pupils equal and round. EOMs intact. Mucous membranes pink and moist. CARDIOVASCULAR: Regular rate and rhythm. No murmur appreciated. RESPIRATORY: No accessory muscle use. Clear to auscultation. Breath sounds equal bilaterally. GASTROINTESTINAL: Abdomen soft, non-tender, nondistended. Bowel sounds x4. MUSCULOSKELETAL: No obvious deformities. No clubbing or cyanosis. No edema. NEUROLOGICAL: Awake and alert. No focal neurological deficits. Moves upper and lower extremities spontaneously. Normal speech. PSYCHIATRIC: Appropriate mood and affect; insight and judgment fair to normal. A/P Problem List: (1) Neurological symptoms ICD Code: R29.90 Status: Acute (2) Hyperkalemia ICD Code: E87.5 Status: Acute (3) Acute on chronic renal failure ICD Code: N17.9 Status: Acute (4) Atrial fibrillation ICD Code: I48.91 Status: Acute Assessment and Plan 80-year-old female with past medical history of HTN, A. fib, CHF, CKD who presented with slurred speech TIA/transient episodes of encephalopathy: Transient episode of slurred speech. Head CT with no acute changes, chronic white matter ischemic changes stable from previous. Carotid ultrasound with moderate atherosclerotic plaque bilaterally, but no hemodynamically significant narrowing. PT/OT/ST, recommends rehab, case management consulted. LDL 100, HDL 85, allergy to statin. Neurology consulted, recommended full OAC, however initially declined with adverse reactions to anticoagulation in the past. Recurrent TIA today 2/3, discussed with Dr. Gómez who recommended repeat head CT, EEG, and again needs further OAC. Patient apparently now agreeable to Coumadin. Had long discussion with patient/family who now agrees to Coumadin. EEG with mild to moderate encephalopathy, discussed with neurology, possibly secondary to underlying renal disease. Head CT with no acute change. NUVIA on CKD stage V: Creatinine ~4, previously 3.2 on 05/11/16. Held Bumex for now, metabolic acidosis corrected. Renal U/S showed small echogenic kidneys consistent with medical renal disease. Consulted nephrology, patient will likely need dialysis at some point in the near future. Monitor BMP. Follow up nephrology recommendations, possibly outpatient follow-up. Hyperkalemia: from renal failure as above. Potassium 5.6, given Kayexalate in the ED, repeat potassium 5.5 after initial lab error. Given additional Kayexalate, IV calcium, insulin, D5. S/p IVF with D5 and bicarbonate by nephrology. Potassium now within normal limits. Renal diet. Resolved. Hyponatremia: Mild. Likely secondary to hypervolemia from renal disease as above. Fluid restrictions. Atrial fibrillation: Continue rate control with Cardizem. Would benefit from anticoagulation with ChadsVasc >5. Initially refused anticoagulation and was placed on Plavix, however now agreeable to Coumadin, transitioning. Elevated BP: Labile, but reasonably controlled. Clonidine as needed. Left Ankle/Leg Pain: doppler U/S negative for DVT. Pain control with percocet prn. Left Elbow Pain: elbow xray with small joint effusion, no fracture, shows 8mm and 5mm periarticular ossicles. Continue pain control with perocet prn. Cough: Started 2/3. Chest x-ray unremarkable. Speech therapy recommended soft diet. History of GI bleeding: Caution with anticoagulation as above. DVT prophylaxis: Heparin, transition to Coumadin Written by Jeff Jennings, acting as scribe for Dr. Lopez on 06/21/16 at 10:53. Discharge Planning Follow-up nephrology recommendations. Possible discharge to SNF 12 days. Attending Statement The documentation accurately reflects the work performed [id number] by me on 06/21/16 at 10:53 Problem Qualifiers (1) Atrial fibrillation: Qualified Code: I48.91 - Atrial fibrillation, unspecified type Jeff Jennings Jun 21, 2016 10:59 Nick Peter MD Jun 24, 2016 14:06
[2016-06-21] MEDS: oxyCODONE/ACETAMINOPHEN 5 MG/325 MG TAB PO PRN (14:45)
[2016-06-21] MEDS: WARFARIN SOD 5 MG TAB PO SCH (16:39)
--- NOTE | 2016-06-21 19:37 | HHI.NPPN ---
Subjective Complaints: Obesity Renal Failure: Chronic, Acute Additional Remarks No acute changes Objective Data Data Vital Signs Date Time Temp Pulse Resp B/P Pulse Ox O2 Delivery O2 Flow Rate FiO2 06/21/16 16:26 97.3 80 18 141/73 96 06/21/16 12:17 96.3 75 20 145/67 96 06/21/16 08:00 96.1 85 20 150/75 93 06/21/16 04:06 97.6 89 20 129/93 96 06/21/16 04:00 79 06/21/16 00:25 97.9 88 20 139/70 96 06/20/16 22:13 18 06/20/16 19:45 97.6 86 20 130/58 95 -: 06/21/16 0423 06/21/16 0423 Tubes & Lines: Perez Physical Exam General Appearance: Well Developed, Well Nourished, No Acute Distress, Sleeping Eyes Eye Exam: Pupils Equal Throat Throat Exam: Oral Mucosa [place] & Moist Neck Neck Exam: Neck Supple Pulmonary Resp Exam: Clear Bilaterally, Breath Sounds Equal, No Distress Cardiology CV Exam: Regular, Normal Sinus Rhythm, Good Perfusion Gastrointestinal/Abdomen GI Exam: Soft, Non-Tender, Bowel Sounds Present Musculoskeletal MS Exam: Joints Intact, Normal Gait, Normal Tone Integumentary Skin Exam: Clear, Warm, Dry, Intact Extremeties Extremities Exam: No Edema, Pedal Pulses Palpable, Trace Edema Neurologic Neuro Exam: Alert, Awake, Oriented, Speech Clear, Moving All Extremities Assessment/Plan Assessment Summary: Proteinuria, Hypertension, CKD Stage V Problem List: (1) Acute on chronic renal failure Plan: she does have advanced renal dysfunction, in April creatinine 3.2, GFR 14, consistent with CKD 5 creatinine has improved some since admission -stable today at 4.1 no current electrolyte concerns, acidosis has corrected she had perez due to urinary retention per nurses - now voiding on her own without catheter. EF 60 %, bumex held. Otherwise stable for d/c from renal standpoint. she does not need dialysis this admission unless there is a change in her clinical condition. 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
[2016-06-22] VITALS: BP 150/66; PULSE 101; RESP 20; TEMP 98.9; O2SAT 94
[2016-06-22 04:00] VITALS: BP 139/72; PULSE 85; RESP 20; TEMP 97; O2SAT 95
[2016-06-22] MEDS: LEVOTHYROXINE SODIUM 75 MCG TAB PO SCH (06:14)
[2016-06-22] MEDS: oxyCODONE/ACETAMINOPHEN 5 MG/325 MG TAB PO PRN ×2 (06:14→13:00)
[2016-06-22 08:00] VITALS: PULSE 72
[2016-06-22 08:42] VITALS: BP 144/67; PULSE 85; RESP 18; TEMP 96.7; O2SAT 94
[2016-06-22] MEDS: SODIUM CHLORIDE 0.9% FLUSH 5 ML FLUSH IVF SCH (09:00)
[2016-06-22] MEDS: DOCUSATE SODIUM 100 MG CAP PO SCH (09:02)
[2016-06-22] MEDS: DILTIAZEM-CD 240 MG CAP ER PO SCH (09:02)
[2016-06-22] MEDS: CLOPIDOGREL 75 MG TAB PO SCH (09:03)
[2016-06-22] MEDS: OXYBUTYNIN CHLORIDE 5 MG TAB PO SCH (09:03)
[2016-06-22] MEDS: LORATADINE 10 MG TAB PO SCH (09:03)
[2016-06-22] MEDS: HEPARIN SODIUM - SQ 10,000 UNITS/ML VIAL SQ SCH (09:03)
[2016-06-22 09:43] LABS: INTERNATIONAL NORMALIZED RATIO 1.2 RATIO; PROTHROMBIN TIME - PATIENT 12.8 SEC (9.8-11.6)
[2016-06-22 10:04] LABS: BICARBONATE 20.1 MEQ/L (21.0-32.0); MAGNESIUM 2.5 MG/DL (1.5-2.5); POTASSIUM 4.5 MEQ/L (3.5-5.1)
[2016-06-22 12:53] VITALS: BP 133/66; PULSE 69; RESP 18; TEMP 96.8; O2SAT 96
--- NOTE | 2016-06-22 14:42 | HHI.NPPN ---
Subjective Complaints: Obesity Renal Failure: Chronic, Acute Additional Remarks No acute changes Objective Data Data 06/21/16 06/22/16 19:00 07:00 Intake Total 1440 ml 240 ml Balance 1440 ml 240 ml Intake Oral 1440 ml 240 ml # Voids 2 1 # Bowel Movements 0 Vital Signs Date Time Temp Pulse Resp B/P Pulse Ox O2 Delivery O2 Flow Rate FiO2 06/22/16 12:53 96.8 69 18 133/66 96 06/22/16 08:42 96.7 85 18 144/67 94 06/22/16 08:00 72 06/22/16 04:00 97.0 85 20 139/72 95 06/22/16 00:00 98.9 101 20 150/66 94 06/21/16 20:00 81 06/21/16 20:00 98.7 91 22 134/62 95 06/21/16 16:26 97.3 80 18 141/73 96 -: 06/21/16 0423 06/22/16 0900 Tubes & Lines: Perez Physical Exam General Appearance: Well Developed, Well Nourished, No Acute Distress, Sleeping Eyes Eye Exam: Pupils Equal Throat Throat Exam: Oral Mucosa [place] & Moist Neck Neck Exam: Neck Supple Pulmonary Resp Exam: Clear Bilaterally, Breath Sounds Equal, No Distress Cardiology CV Exam: Regular, Normal Sinus Rhythm, Good Perfusion Gastrointestinal/Abdomen GI Exam: Soft, Non-Tender, Bowel Sounds Present Musculoskeletal MS Exam: Joints Intact, Normal Gait, Normal Tone Integumentary Skin Exam: Clear, Warm, Dry, Intact Extremeties Extremities Exam: No Edema, Pedal Pulses Palpable, Trace Edema Neurologic Neuro Exam: Alert, Awake, Oriented, Speech Clear, Moving All Extremities Assessment/Plan Assessment Summary: Proteinuria, Hypertension, CKD Stage V Problem List: (1) Acute on chronic renal failure Plan: she does have advanced renal dysfunction, in April creatinine 3.2, GFR 14, consistent with CKD 5 creatinine has improved some since admission Creatinine stable today: 4.1 -> 4.39 no current electrolyte concerns, acidosis has corrected she had perez due to urinary retention per nurses - now voiding on her own without catheter. EF 60 %, bumex held. Otherwise stable for d/c from renal standpoint. she does not need dialysis this admission unless there is a change in her clinical condition. 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
[2016-06-22] MEDS: WARFARIN SOD 5 MG TAB PO SCH (16:00)
[2016-06-22 16:08] VITALS: BP 133/66; PULSE 69; RESP 18; TEMP 96.8; O2SAT 96
[2016-06-22] MEDS ORDERED: COUM5TAB PO (16:19)
--- NOTE | 2016-06-22 16:22 | HHI.PR ---
Subjective Remarks Follow-up for TIA and renal failure. The patient feels well this time. She has no complaints. She is happy to be discharged from the hospital. Objective Vitals Vital Signs Date Time Temp Pulse Resp B/P Pulse Ox O2 Delivery O2 Flow Rate FiO2 06/22/16 16:08 96.8 69 18 133/66 96 06/22/16 12:53 96.8 69 18 133/66 96 06/22/16 08:42 96.7 85 18 144/67 94 06/22/16 08:00 72 06/22/16 04:00 97.0 85 20 139/72 95 06/22/16 00:00 98.9 101 20 150/66 94 06/21/16 20:00 81 06/21/16 20:00 98.7 91 22 134/62 95 06/21/16 16:26 97.3 80 18 141/73 96 I/O 06/21/16 06/21/16 06/21/16 06/22/16 06/22/16 06/22/16 07:00 15:00 23:00 07:00 15:00 23:00 Intake Total 1440 ml 240 ml 240 ml Balance 1440 ml 240 ml 240 ml Intake Oral 1440 ml 240 ml 240 ml # Voids 2 1 1 # Bowel Movements 0 Result Diagram: 06/21/16 0423 06/22/16 0900 Imaging Last Impressions Head CT 06/20/16 0000 Signed Impressions: Service Date/Time: Monday, June 20, 2016 12:55 - CONCLUSION: Atrophy otherwise negative Felipe Pollack MD FACR Chest X-Ray 06/20/16 0000 Signed Impressions: Service Date/Time: Monday, June 20, 2016 13:48 - CONCLUSION: Pacer on the left otherwise negative. Felipe Pollack MD FACR Lower Extremity Ultrasound 06/19/16 0000 Signed Impressions: Service Date/Time: June 11:56 - CONCLUSION: 1. No DVT in the left leg. 2. Not mentioned above there is Ruiz's cyst measuring 3.3 x 5.8 x 1.4 cm. Kraig Metcalf MD Elbow X-Ray 06/19/16 0000 Signed Impressions: Service Date/Time: June 11:45 - CONCLUSION: 1. Small joint effusion. 2. No evidence of acute fracture. 3. 8mm and 5 mm periarticular or intra-articular ossicles identified anteriorly on the lateral view and adjacent to the radial head in the region of the radial collateral ligament. Randall Matson MD Renal Ultrasound 06/17/16 0000 Signed Impressions: Service Date/Time: Friday, June 17, 2016 21:39 - CONCLUSION: Small echogenic kidneys consistent with medical renal disease. Demar Wilson MD Carotid Artery Ultrasound 06/16/16 0000 Signed Impressions: Service Date/Time: Thursday, June 16, 2016 21:59 - CONCLUSION: Bilateral bifurcation atherosclerotic plaque, mild to moderate on the right and moderate on the left. No hemodynamically significant narrowing. Demar Montes MD Objective Remarks GENERAL: Well-developed well-nourished. In no acute distress. SKIN: Warm and dry. No lesions noted. HEENT: Normocephalic. Pupils equal and round. Mucous membranes pink and moist. CARDIOVASCULAR: Regular rate and rhythm. No murmur appreciated. RESPIRATORY: No accessory muscle use. Clear to auscultation. Breath sounds equal bilaterally. GASTROINTESTINAL: Abdomen soft, non-tender, nondistended. Bowel sounds x4. MUSCULOSKELETAL: No obvious deformities. No clubbing or cyanosis. No edema. NEUROLOGICAL: Awake and alert. No focal neurological deficits. Moves upper and lower extremities spontaneously. Normal speech. PSYCHIATRIC: Appropriate mood and affect; insight and judgment fair to normal. A/P Problem List: (1) Neurological symptoms ICD Code: R29.90 Status: Acute (2) Hyperkalemia ICD Code: E87.5 Status: Acute (3) Acute on chronic renal failure ICD Code: N17.9 Status: Acute (4) Atrial fibrillation ICD Code: I48.91 Status: Acute Assessment and Plan 80-year-old female with past medical history of HTN, A. fib, CHF, CKD who presented with slurred speech TIA/transient episodes of encephalopathy: Transient episode of slurred speech. Head CT with no acute changes, chronic white matter ischemic changes stable from previous. Carotid ultrasound with moderate atherosclerotic plaque bilaterally, but no hemodynamically significant narrowing. PT/OT/ST, recommends rehab, case management consulted. LDL 100, HDL 85, allergy to statin. Neurology consulted, recommended full OAC, however initially declined with adverse reactions to anticoagulation in the past. Recurrent TIA today 2/3, discussed with Dr. Gómez who recommended repeat head CT, EEG, and again needs further OAC. Patient now agreeable to Coumadin. EEG with mild to moderate encephalopathy, discussed with neurology, possibly secondary to underlying renal disease. Head CT with no acute change. NUVIA on CKD stage V: Creatinine ~4, previously 3.2 on 05/11/16. Held Bumex for now, metabolic acidosis corrected. Renal U/S showed small echogenic kidneys consistent with medical renal disease. Consulted nephrology, patient will likely need dialysis at some point in the near future. Monitor BMP. Cleared by nephrology for outpatient follow-up to discuss future plans for dialysis. Hyperkalemia: from renal failure as above. Potassium 5.6, given Kayexalate in the ED, repeat potassium 5.5 after initial lab error. Given additional Kayexalate, IV calcium, insulin, D5. S/p IVF with D5 and bicarbonate by nephrology. Potassium now within normal limits. Renal diet. Resolved. Hyponatremia: Mild. Likely secondary to hypervolemia from renal disease as above. Fluid restrictions. Atrial fibrillation: Continue rate control with Cardizem. Would benefit from anticoagulation with ChadsVasc >5. Initially refused anticoagulation and was placed on Plavix, however now agreeable to Coumadin, transitioning. Continue to monitor INR. Elevated BP: Labile, but reasonably controlled. Clonidine as needed. Left Ankle/Leg Pain: doppler U/S negative for DVT. Pain control with percocet prn. Left Elbow Pain: elbow xray with small joint effusion, no fracture, shows 8mm and 5mm periarticular ossicles. Continue pain control with perocet prn. Cough: Started 2/. Chest x-ray unremarkable. Speech therapy recommended soft diet. History of GI bleeding: Caution with anticoagulation as above. DVT prophylaxis: Heparin, transition to Coumadin Written by Jeff Jennings, acting as scribe for Dr. Lopez on 06/22/16 at 16:22. Discharge Planning Discharge patient to SNF Condition on discharge: Improved Renal Diet as tolerated Regular activity Rx written: Coumadin, Percocet Follow-up with primary care physician, neurology, nephrology, cardiology Attending Statement The documentation accurately reflects the work performed [id number] by me on at 16:22.. Problem Qualifiers (1) Atrial fibrillation: Qualified Code: I48.91 - Atrial fibrillation, unspecified type Jeff Jennings Jun 22, 2016 16:22 Nick Peter MD Jul 02, 2016 09:24
[2016-06-22] MEDS ORDERED: OXYC1TAB63 PO (16:56)
== END 2016-06-22 18:40 | DRG 69 ==
LOC: NEPE 18:08 → NEDA 20:55 → NEPFCDU 06-17 02:57 → N05B 06-22 00:23
PROVIDERS: ADMIT Hospitalist; ATTEND Hospitalist
DX: G45.1 Carotid artery syndrome (hemispheric) (principal); G93.40 Encephalopathy, unspecified; N17.9 Acute kidney failure, unspecified; E87.2 Acidosis; I12.0 Hypertensive chronic kidney disease with stage 5 chronic kidney disease or end stage renal disease; N18.5 Chronic kidney disease, stage 5; I49.5 Sick sinus syndrome; E87.1 Hypo-osmolality and hyponatremia; I48.91 Unspecified atrial fibrillation; E87.5 Hyperkalemia; E78.00 Pure hypercholesterolemia, unspecified; I25.10 Atherosclerotic heart disease of native coronary artery without angina pectoris; R33.9 Retention of urine, unspecified; E66.9 Obesity, unspecified; Z79.02 Long term (current) use of antithrombotics/antiplatelets; Z79.82 Long term (current) use of aspirin; Z87.440 Personal history of urinary (tract) infections; Z95.0 Presence of cardiac pacemaker; Z96.1 Presence of intraocular lens; Z96.642 Presence of left artificial hip joint; Z96.651 Presence of right artificial knee joint
CPT/HCPCS: 70450; 71010; 73080; 76775; 80048; 80061; 80069; 81001; 82043; 82140; 82607; 82948; 83036; 83735; 84155; 84443; 84484; 85025; 85610; 85652; 85730; 87086; 93005; 93306; 93880; 93971; 95819; J0610; J1644; J1815; J7040; J7070

== ENCOUNTER 2016-06-24 18:48 | Observation (INO) | payer MEDICARE, OTHER ==
[~2016-06-24] VITALS: Ht 170.2 cm; Wt 80.0 kg
[~2016-06-24 18:48] MED LIST changes: -ASPI81CH CHEW; -BUME1TAB PO; -CEFT250T8 PO; +COUM5TAB PO; +OXYC1TAB63 PO; -POTA10TA8 PO; -PRED10 PO
[2016-06-24 18:50] VITALS: BP 147/71; PULSE 66; RESP 16; TEMP 97.5; O2SAT 94
[2016-06-24 19:06] VITALS: BP 147/71; PULSE 69; PULSE 72; RESP 16; TEMP 97.2; O2SAT 95; O2SAT 96
[2016-06-24] MEDS ORDERED: SODIUM CHLORIDE 0.9% FLUSH 5 ML FLUSH IVF PRN (19:15)
[2016-06-24] MEDS ORDERED: ONDANSETRON HCL 4 MG/2 ML VIAL IVP ONE (19:15)
[2016-06-24 19:33] LABS: AUTOMATED NEUTROPHIL # 5.6 TH/MM3 (1.8-7.7); BASOPHIL # 0.1 TH/MM3 (0-0.2); BASOPHIL % 0.8 % (0.0-2.0); EOSINOPHIL # 0.2 TH/MM3 (0-0.4); EOSINOPHIL % 2.4 % (0.0-4.0); HEMATOCRIT 31.6 % (35.0-46.0); HEMO FLAGS DIFF FINAL; LYMPH % 13.8 % (9.0-44.0); MEAN CELL VOLUME 87.1 FL (80.0-100.0); MEAN CORPUSCULAR HEMOGLOBIN 29.2 PG (27.0-34.0); MEAN CORPUSCULAR HGB CONC 33.5 % (32.0-36.0); MONO % 8.5 % (0.0-8.0); NEUT % 74.5 % (16.0-70.0); PLATELET COUNT 289 TH/MM3 (150-450); RED BLOOD COUNT 3.63 MIL/MM3 (4.00-5.30); RED CELL DISTRIBUTION WIDTH 14.6 % (11.6-17.2); WHITE BLOOD COUNT 7.5 TH/MM3 (4.0-11.0)
--- NOTE | 2016-06-24 19:38 | PD ---
HPI Chief Complaint: GI Complaint Time Seen by Provider: 19:22 Travel History International Travel<30 days: No Contact w/Intl Traveler<30days: No Traveled to known affect area: No History of Present Illness HPI 80 y/o female was [facility] after one episode of vomiting today. She describes it as a black emesis, but no bright red blood. She's been feeling well since then. She denies any nausea, abdominal pain, diarrhea, chest pain, fever, chills, no change in urination. She is a poor history and could not provide a good medical history or medications she is taking. She says she is feeling well and wants to go back to her rehab facility. [facility] Past Medical History Arthritis: Yes Atrial Fibrillation: Yes Autoimmune Disease: No Anxiety: No Depression: No Heart Rhythm Problems: Yes (AFIB ) Cancer: No Cardiovascular Problems: Yes (CAD ) High Cholesterol: Yes Chest Pain: Yes Congestive Heart Failure: Yes Coronary Artery Disease: Yes Diabetes: No Diminished Hearing: No Endocrine: Yes Gastrointestinal Disorders: No Glaucoma: No Genitourinary: Yes Hepatitis: No Hiatal Hernia: No Hypertension: Yes Immune Disorder: No Musculoskeletal: No Neurologic: No Psychiatric: No Reproductive: No Respiratory: No Immunizations Current: Yes Renal Failure: Yes Thyroid Disease: Yes (Hypothyrodism) Menopausal: Yes : 5 Para: 5 Miscarriage: 0 : 0 Past Surgical History Abdominal Surgery: No Body Medical Devices: Left hip replacement Cardiac Surgery: Yes (PACEMAKER X 3) Ear Surgery: No Endocrine Surgery: No Eye Surgery: Yes (BL CATARACT REMOVAL, BL LENSE IMPLANTS) Genitourinary Surgery: No Gynecologic Surgery: No Joint Replacement: Yes (R KNEE, L HIP) Oral Surgery: No Pacemaker: Yes Thoracic Surgery: No Other Surgery: Yes Social History Alcohol Use: No Tobacco Use: No Substance Use: No Allergies-Medications (Allergen,Severity, Reaction): Coded Allergies: CRESTOR (Unverified Allergy, Severe, 06/24/16) Coumadin (Unverified Allergy, Severe, 06/24/16) Lipitor (Unverified Allergy, Severe, 06/24/16) Motrin (Unverified Allergy, Severe, 06/24/16) Paxil (Unverified Allergy, Severe, 06/24/16) Reported Meds & Prescriptions Reported Meds & Active Scripts Active Oxycodone-Acetaminophen 5-325 mg Tab 1 Tab PO Q6H PRN Coumadin (Warfarin) 5 Mg Tab 5 Mg PO DAILY@16 Ventolin Hfa 18 GM Inh (Albuterol Sulfate) 90 Mcg/Act Aer 2 Puff INH Q4-6H PRN Reported Claritin (Loratadine) 10 Mg Cap 10 Mg PO DAILY Monistat 3 Vaginal Cream (Miconazole 3 Vaginal Cream) 4 % Cream 1 Appl VAGINAL HS Flexeril (Cyclobenzaprine HCl) 5 Mg Tab 5 Mg PO TID Ditropan (Oxybutynin Chloride) 5 Mg Tab 5 Mg PO DAILY Levothyroxine (Levothyroxine Sodium) 75 Mcg Tab 75 Mcg PO DAILY Cardizem CD 24 HR (Diltiazem CD 24 HR) 240 Mg Caper 240 Mg PO DAILY Review of Systems Except as stated in HPI: all other systems reviewed are Neg General / Constitutional: No: Fever, Chills HENT: No: Headaches, Congestion Cardiovascular: No: Chest Pain or Discomfort, Palpitations Respiratory: No: Cough, Shortness of Breath, Wheezing, Hemoptysis, Night Sweats Gastrointestinal: Positive: Vomiting (once today), No: Diarrhea, Abdominal Pain, Hematemesis Genitourinary: No: Urgency, Frequency Musculoskeletal: No: Pain Neurologic: No: Weakness, Dizziness, Headache Physical Exam Exam Limitations: Altered Mental Status (questionable, could not name the president of the [employer], was telling stories that did not make since and had nothing to do with the question asked ), Poor Historian Narrative GENERAL: 80 y/o female , well-developed, well-nourished, alert and oriented, comfortably lying in bed SKIN: Warm and dry. HEAD: Atraumatic. Normocephalic. EYES: Pupils equal and round. No scleral icterus. No injection or drainage. ENT: No nasal bleeding or discharge. Mucous membranes pink and moist. NECK: Trachea midline. No JVD. CARDIOVASCULAR: Regular rate and rhythm. RESPIRATORY: No accessory muscle use. Clear to auscultation. Breath sounds equal bilaterally. GASTROINTESTINAL: Abdomen soft, non-tender, nondistended. Hepatic and splenic margins not palpable. MUSCULOSKELETAL: Extremities without clubbing, cyanosis, or edema. No obvious deformities. NEUROLOGICAL: Awake and alert. No obvious cranial nerve deficits. Motor grossly within normal limits. Five out of 5 muscle strength in the arms and legs. Normal speech. PSYCHIATRIC: Appropriate mood and affect; insight and judgment normal. Data Data Last Documented VS Vital Signs Date Time Temp Pulse Resp B/P Pulse Ox O2 Delivery O2 Flow Rate FiO2 06/24/16 19:06 97.2 69 16 147/71 96 Room Air Orders Complete Blood Count With Diff (06/24/16 19:05) Comprehensive Metabolic Panel (06/24/16 19:05) Lipase (06/24/16 19:05) Prothrombin Time / Inr (Pt) (06/24/16 19:05) Act Partial Throm Time (Ptt) (06/24/16 19:05) Iv Access Insert/Monitor (06/24/16 19:05) Ecg Monitoring (06/24/16 19:05) Oximetry (06/24/16 19:05) Ondansetron Inj (Zofran Inj) (06/24/16 19:15) Sodium Chloride 0.9% Flush (Ns Flush) (06/24/16 19:15) Ondansetron Odt (Zofran Odt) (06/24/16 19:45) Urinalysis - C+S If Indicated (06/24/16 19:36) Cath For Specimen (06/24/16 19:36) Urine Culture (06/24/16 19:53) Ceftriaxone Inj (Rocephin Inj) (06/24/16 20:45) Admit Order (Ed Use Only) (06/24/16 20:42) Labs Laboratory Tests Test 06/24/16 06/24/16 19:15 19:53 White Blood Count 7.5 TH/MM3 Red Blood Count 3.63 MIL/MM3 Hemoglobin 10.6 GM/DL Hematocrit 31.6 % Mean Corpuscular Volume 87.1 FL Mean Corpuscular Hemoglobin 29.2 PG Mean Corpuscular Hemoglobin 33.5 % Concent Red Cell Distribution Width 14.6 % Platelet Count 289 TH/MM3 Mean Platelet Volume 6.9 FL Neutrophils (%) (Auto) 74.5 % Lymphocytes (%) (Auto) 13.8 % Monocytes (%) (Auto) 8.5 % Eosinophils (%) (Auto) 2.4 % Basophils (%) (Auto) 0.8 % Neutrophils # (Auto) 5.6 TH/MM3 Lymphocytes # (Auto) 1.0 TH/MM3 Monocytes # (Auto) 0.6 TH/MM3 Eosinophils # (Auto) 0.2 TH/MM3 Basophils # (Auto) 0.1 TH/MM3 CBC Comment DIFF FINAL Differential Comment Prothrombin Time 45.8 SEC Prothromb Time International 3.9 RATIO Ratio Activated Partial 48.2 SEC Thromboplast Time Sodium Level 131 MEQ/L Potassium Level 5.2 MEQ/L Chloride Level 97 MEQ/L Carbon Dioxide Level 22.3 MEQ/L Anion Gap 12 MEQ/L Blood Urea Nitrogen 73 MG/DL Creatinine 4.20 MG/DL Estimat Glomerular Filtration 10 ML/MIN Rate Random Glucose 118 MG/DL Calcium Level 9.3 MG/DL Total Bilirubin 0.4 MG/DL Aspartate Amino Transf 25 U/L (AST/SGOT) Alanine Aminotransferase 12 U/L (ALT/SGPT) Alkaline Phosphatase 77 U/L Total Protein 7.8 GM/DL Albumin 2.8 GM/DL Lipase 159 U/L Urine Color YELLOW Urine Turbidity CLOUDY Urine pH 8.0 Urine Specific [place] 1.017 Urine Protein GREATER THAN 600 mg/dL Urine Glucose (UA) NEG mg/dL Urine Ketones NEG mg/dL Urine Occult Blood SMALL Urine Nitrite NEG Urine Bilirubin NEG Urine Urobilinogen LESS THAN 2.0 MG/DL Urine Leukocyte Esterase LARGE Urine RBC 22 /hpf Urine WBC /hpf Urine WBC Clumps FEW Urine Bacteria MOD /hpf Microscopic Urinalysis Comment CATH-CULTURE IND MDM Medical Decision Making Medical Screen Exam Complete: Yes Emergency Medical Condition: Yes Medical Record Reviewed: Yes Differential Diagnosis Constipation, Gastritis, Acute Cholecystitis, Biliary Colic, Pancreatitis, BRIGHT , Hepatitis, Bowel Obstruction, Cystitis, Mesenteric Ischemia, AAA, Appendicitis , Renal Stone/Hydronephrosis, GERD, perforated viscous Narrative Course CBC & BMP Diagram 06/24/16 19:15 INR is 3.9 LFTs are essentially normal aside from elevated at 2.8 Lipase normal Urinalysis shows UTI Kidney disease is chronic, most recent nephrology note was written by Dr Betancourt Slight hemolysis lab personnel regard to mild hyperkalemia at 5.2 Patient has urinary tract infection. She has coffee-ground emesis as well as an INR of 3.9. She is also 80 w multiple medical problems stage IV kidney disease. Rocephin ordered. d/w Dr Brito. Diagnosis Primary Impression: UTI (urinary tract infection) Qualified Code: N30.01 - Acute cystitis with hematuria Additional Impressions: CKD (chronic kidney disease), stage V Supratherapeutic INR Admitting Information Admitting Physician Requests: Observation Andrea Bullock MD Jun 24, 2016 19:38
[2016-06-24] MEDS ORDERED: ONDANSETRON ODT 4 MG TAB PO ONE (19:45)
[2016-06-24 19:48] LABS: APTT (PATIENT) 48.2 SEC (24.3-30.1); INTERNATIONAL NORMALIZED RATIO 3.9 RATIO; PROTHROMBIN TIME - PATIENT 45.8 SEC (9.8-11.6)
[2016-06-24 20:08] LABS: ALKALINE PHOSPHATASE 77 U/L (45-117); ALT (GPT) 12 U/L (10-53); ANION GAP 12 MEQ/L (5-15); AST (GOT) 25 U/L (15-37); BICARBONATE 22.3 MEQ/L (21.0-32.0); BLOOD UREA NITROGEN 73 MG/DL (7-18); CHLORIDE 97 MEQ/L (98-107); GLOMERULAR FILTRATION RATE 10 ML/MIN (>89); POTASSIUM 5.2 MEQ/L (3.5-5.1); SODIUM (NA) 131 MEQ/L (136-145); TOTAL BILIRUBIN ADULT 0.4 MG/DL (0.2-1.0)
[2016-06-24 20:19] LABS: BACTERIA, URINE MOD /hpf; BLOOD, URINE SMALL (NEG); GLUCOSE,URINE NEG (NEG); KETONE, URINE NEG (NEG); NITRITE,URINE NEG (NEG); URINE COLOR YELLOW (YELLW/STRAW)
[2016-06-24 20:21] LABS: COMMENT (UR) CATH-CULTURE IND; CULTURE IF INDICATED CATH CULTURE IND
[2016-06-24] MEDS ORDERED: CYCL5TAB PO (20:42)
[2016-06-24] MEDS ORDERED: CLAR10CA3 PO (20:42)
[2016-06-24] MEDS ORDERED: MICO1CRE2 VAGINAL (20:42)
[2016-06-24] MEDS ORDERED: SODIUM CHLORIDE 0.9% FLUSH 5 ML FLUSH FLUSH PRN (20:45)
[2016-06-24] MEDS ORDERED: cefTRIAXone INJ 1,000 MG in SODIUM CHLORIDE 0.9% INJ 100 ML IV ONE (20:45)
[2016-06-24] MEDS ORDERED: ONDANSETRON HCL 4 MG/2 ML VIAL IVP PRN (20:45)
[2016-06-24] MEDS ORDERED: NALOXONE HCL 0.4 MG/ML AMP IV PRN (20:45)
[2016-06-24 20:50] VITALS: BP 157/78; PULSE 63; RESP 16; TEMP 97.6; O2SAT 95
[2016-06-24] MEDS: PANTOPRAZOLE INJ 80 MG in SODIUM CHLORIDE 0.9% INJ 100 ML IV SCH (21:35)
[2016-06-24] MEDS: SODIUM CHLORIDE 0.9% FLUSH 5 ML FLUSH FLUSH SCH (21:42)
[2016-06-24] MEDS ORDERED: PANTOPRAZOLE INJ 80 MG in SODIUM CHLORIDE 0.9% INJ 35 ML IV ONE (21:45)
[2016-06-24] MEDS ORDERED: cefTRIAXone INJ 1,000 MG in SODIUM CHLORIDE 0.9% INJ 100 ML IV SCH (22:15)
[2016-06-24 22:49] LABS: HEMATOCRIT 28.9 % (35.0-46.0); REVIEW FLAG FINAL
--- NOTE | 2016-06-24 23:54 | HHI.HP ---
[facility] Andrade Harper M.D. Admission Diagnosis Coffee Ground Emesis, Cystitis, INR 3.9 Diagnoses: (1) Hematemesis (2) Anemia (3) UTI (urinary tract infection) (4) CKD (chronic kidney disease), stage V (5) Supratherapeutic INR Chief Complaint: black-colored projectile vomiting Travel History International Travel<30 Days: No Contact w/Intl Traveler <30 Da: No Traveled to Known Affected Are: No History of Present Illness Ms. Haq is an 80 year old female with a past medical history of hypothyroidism, coronary artery disease, congestive heart failure, hyperlipidemia, atrial fibrillation, hypertension, sick sinus syndrome requiring pacemaker placement, stage V chronic renal disease, arthritis, and osteoporosis who presented to the emergency room on 06/24/2016 for evaluation of black emesis that occurred while she was at [facility] and [facility]. H&H stable at 10.6/31.6 compared to previous visit on 06/21/2016 when it was 10.3/30.5. Coagulopathy with INR 3.9, PTT 45.8, and APTT 48.2. Potassium slightly elevated at 5.2 with hemolysis noted by lab. Hyponatremia noted with sodium 131 The patient is seen in the emergency room. She states she was at [facility] facility when she projectile vomited across the room. She reports vomitus to be black in color. She states that the staff there called emergency medical services and she was transported to the hospital. Symptoms were severe but she states that she immediately felt better after vomiting. She denies syncope, chest pain, palpitations, shortness of breath, black or tarry stool, or abdominal pain. . Review of Systems Constitutional: DENIES: Fever Respiratory: DENIES: Cough, Shortness of breath Cardiovascular: DENIES: Chest pain, Palpitations Gastrointestinal: DENIES: Black stools, Bloody stools, Diarrhea, Nausea Genitourinary: DENIES: Hematuria, Dysuria Neurologic: COMPLAINS OF: Abnormal gait (unable to walk at rehab), DENIES: Seizures Other 10 point review of systems performed; pertinent responses are noted in history of present illness and ROS; otherwise systems were negative . Past Family Social History Past Medical History Hypothyroidism Coronary artery disease Congestive heart failure Hyperlipidemia Atrial fibrillation Hypertension Sick sinus syndrome requiring pacemaker placement Stage V chronic renal disease Arthritis Osteoporosis Past Surgical History Bilateral cataract removal Bilateral lens implants Pacemaker placement Left hip replacement 2011 Right knee replacement 2013 Tonsillectomy Reported Medications Reported Meds & Active Scripts Active Oxycodone-Acetaminophen 5-325 mg Tab 1 Tab PO Q6H PRN Coumadin (Warfarin) 5 Mg Tab 5 Mg PO DAILY@16 Ventolin Hfa 18 GM Inh (Albuterol Sulfate) 90 Mcg/Act Aer 2 Puff INH Q4-6H PRN Reported Claritin (Loratadine) 10 Mg Cap 10 Mg PO DAILY Monistat 3 Vaginal Cream (Miconazole 3 Vaginal Cream) 4 % Cream 1 Appl VAGINAL HS Flexeril (Cyclobenzaprine HCl) 5 Mg Tab 5 Mg PO TID Ditropan (Oxybutynin Chloride) 5 Mg Tab 5 Mg PO DAILY Levothyroxine (Levothyroxine Sodium) 75 Mcg Tab 75 Mcg PO DAILY Cardizem CD 24 HR (Diltiazem CD 24 HR) 240 Mg Caper 240 Mg PO DAILY . Allergies: Coded Allergies: CRESTOR (Unverified Allergy, Severe, 06/24/16) Coumadin (Unverified Allergy, Severe, 06/24/16) Lipitor (Unverified Allergy, Severe, 06/24/16) Motrin (Unverified Allergy, Severe, 06/24/16) Paxil (Unverified Allergy, Severe, 06/24/16) Active Ordered Medications Current Medications Ondansetron HCl (Zofran Inj) 4 mg ONCE ONCE IVP Last administered on 06/24/16t 19:15; Start 06/24/16 at 19:15; Stop 06/24/16 at 19:16; Status DC IV Flush (NS Flush) 2 ml UNSCH PRN IVF FLUSH AFTER USING IV ACCESS; Start at 19:15; Stop 06/24/16 at 21:07; Status DC Ondansetron HCl 4 mg 4 mg ONCE ONCE PO ; Start 06/24/16 at 19:45; Stop 06/24/16 at 19:45; Status DC Ceftriaxone Sodium/Sodium Chloride (Rocephin Inj/NS Inj) 100 ml @ 200 mls/hr ONCE ONCE IV Last administered on 06/24/16 20:48; Start 06/24/16 at 20:45; Stop 06/24/16 at 21:14; Status DC IV Flush (NS Flush) 2 ml UNSCH PRN FLUSH FLUSH AFTER USING IV ACCESS; Start 06/24/16 at 20:45 IV Flush (NS Flush) 2 ml BID FLUSH Last administered on 06/24/16 21:42; Start 06/24/16 at 21:00 Ondansetron HCl (Zofran Inj) 4 mg Q6H PRN IVP NAUSEA OR VOMITING; Start at 20:45 Naloxone HCl 0.4 mg 0.4 mg UNSCH PRN IV SEE LABEL COMMENTS; Start 06/24/16 at 20 :45 Pantoprazole Sodium 80 mg/ Sodium Chloride 35 ml @ 420 mls/hr ONCE ONCE IV Last administered on 06/24/16 21:35; Start 06/24/16 at 21:45; Stop 06/24/16 at 21: 49; Status DC Pantoprazole Sodium 80 mg/ Sodium Chloride 100 ml @ 10 mls/hr Q10H IV Last administered on 06/24/16 21:35; Start 06/24/16 at 21:45 Ceftriaxone Sodium 1000 mg/ Sodium Chloride 100 ml @ 200 mls/hr Q24H IV ; Start 06/24/16 at 22:15; Stop 06/24/16 at 22:15; Status DC Ceftriaxone Sodium/Sodium Chloride (Rocephin Inj/NS Inj) 100 ml @ 200 mls/hr Q24H IV ; Start 06/25/16 at 21:00 Family History Mother and father with heart and lung disease . Social History Lives home alone; has a "nurse" who takes care of her at home Tobacco: quit smoking over 60 years ago . Physical Exam Vital Signs Vital Signs Date Time Temp Pulse Resp B/P Pulse Ox O2 Delivery O2 Flow Rate FiO2 06/24/16 20:50 97.6 63 16 157/78 95 Room Air 06/24/16 19:06 97.2 69 16 147/71 96 Room Air 06/24/16 19:06 72 16 147/71 95 Room Air 06/24/16 18:50 97.5 66 16 147/71 94 Physical Exam GENERAL: This is an elderly female patient, in no apparent distress. SKIN: No rashes, ecchymoses or lesions. Cool and dry. HEAD: Atraumatic. Normocephalic. EYES: No scleral icterus. No injection or drainage. ENT: Nose without bleeding, purulent drainage. NECK: Trachea midline. No JVD or lymphadenopathy. CARDIOVASCULAR: Regular rate and rhythm without murmurs, gallops, or rubs. RESPIRATORY: Clear to auscultation. Breath sounds equal bilaterally. No wheezes , rales, or rhonchi. GASTROINTESTINAL: Abdomen soft, non-tender, nondistended. No guarding. MUSCULOSKELETAL: Extremities without clubbing, cyanosis, or edema. No calf tenderness. NEUROLOGICAL: Awake and alert. Motor and sensory grossly within normal limits. Normal speech. . . Laboratory Laboratory Tests Test 06/24/16 06/24/16 06/24/16 06/24/16 19:15 19:53 21:12 22:39 White Blood Count 7.5 Red Blood Count 3.63 Hemoglobin 10.6 9.6 Hematocrit 31.6 28.9 Mean Corpuscular Volume 87.1 Mean Corpuscular Hemoglobin 29.2 Mean Corpuscular Hemoglobin 33.5 Concent Red Cell Distribution Width 14.6 Platelet Count 289 Mean Platelet Volume 6.9 Neutrophils (%) (Auto) 74.5 Lymphocytes (%) (Auto) 13.8 Monocytes (%) (Auto) 8.5 Eosinophils (%) (Auto) 2.4 Basophils (%) (Auto) 0.8 Neutrophils # (Auto) 5.6 Lymphocytes # (Auto) 1.0 Monocytes # (Auto) 0.6 Eosinophils # (Auto) 0.2 Basophils # (Auto) 0.1 CBC Comment DIFF FINAL Differential Comment Prothrombin Time 45.8 Prothromb Time International 3.9 Ratio Activated Partial 48.2 Thromboplast Time Sodium Level 131 Potassium Level 5.2 Chloride Level 97 Carbon Dioxide Level 22.3 Anion Gap 12 Blood Urea Nitrogen 73 Creatinine 4.20 Estimat Glomerular Filtration 10 Rate Random Glucose 118 Calcium Level 9.3 Total Bilirubin 0.4 Aspartate Amino Transf 25 (AST/SGOT) Alanine Aminotransferase 12 (ALT/SGPT) Alkaline Phosphatase 77 Total Protein 7.8 Albumin 2.8 Lipase 159 Urine Color YELLOW Urine Turbidity CLOUDY Urine pH 8.0 Urine Specific [place] 1.017 Urine Protein GREATER THAN 600 Urine Glucose (UA) NEG Urine Ketones NEG Urine Occult Blood SMALL Urine Nitrite NEG Urine Bilirubin NEG Urine Urobilinogen LESS THAN 2.0 Urine Leukocyte Esterase LARGE Urine RBC 22 Urine WBC Urine WBC Clumps FEW Urine Bacteria MOD Microscopic Urinalysis Comment CATH-CULTURE IND Blood Type O POSITIVE Antibody Screen NEGATIVE Date/Time Procedure Status Source Growth 06/24/16 19:53 Urine Culture Received Urine Catheterized Urine Pending Result Diagram: 06/24/16 6999 06/24/16 1915 Assessment and Plan Problem List: (1) Hematemesis ICD Code: K92.0 Status: Acute (2) UTI (urinary tract infection) ICD Code: N39.0 Status: Acute (3) Supratherapeutic INR ICD Code: R79.1 Status: Acute (4) Anemia ICD Code: D64.9 Status: Acute (5) CKD (chronic kidney disease), stage V ICD Code: N18.5 Status: Acute (6) Hyperkalemia ICD Code: E87.5 Status: Acute Assessment and Plan Ms. Haq is an 80 year old female with a past medical history of hypothyroidism, coronary artery disease, congestive heart failure, hyperlipidemia, atrial fibrillation, hypertension, sick sinus syndrome requiring pacemaker placement, stage V chronic renal disease, arthritis, and osteoporosis who presented to the emergency room on 06/24/2016 for evaluation of black emesis that occurred while she was at [facility]. H&H stable at 10.6/31.6 compared to previous visit on 06/21/2016 when it was 10.3/30.5. Coagulopathy with INR 3.9, PTT 45.8, and APTT 48.2. Potassium slightly elevated at 5.2 with hemolysis noted by lab. Hyponatremia noted with sodium 131 Hematemesis suspected - Protonix drip IV - Consult gastroenterology UTI - Urinalysis with blood, leukocyte esterase and a moderate amount of bacteria - Rocephin 1 g IV every 24 hours - Await results of urine culture and adjust treatment if needed Supratherapeutic INR - on anticoagulation with coumadin at discharge from our hospital for afib/ recurrent TIAs - Hold Coumadin for now - Recheck PT/INR in a.m. Anemia - appears chronic based on previous labs - H&H stable at 10.6/31.6 compared to previous visit on 06/21/2016 when it was 10.3/30.5 - check serial H&H - Type and screen - Vital signs every 4 hours CKD, stage V - has seen Dr. Andrea Betancourt during previous admission; consult if needed - Repeat BMP in a.m. and follow trends in renal indices - Avoid nephrotoxins Hyperkalemia - Potassium 5.2 on admission - Likely secondary to hemolysis - Recheck with BMP in a.m. and follow results DVT prophylaxis - SCDs Written by Sandy Reina, acting as scribe for Dr. Brito on 06/24/16 at 23:40. The documentation accurately reflects the work performed [id number] by me on at 2340 Discussed Condition With Patient, ER physician, RN Problem Qualifiers (1) Anemia: Qualified Code: D64.9 - Anemia, unspecified type (2) UTI (urinary tract infection): Qualified Code: N30.01 - Acute cystitis with hematuria Sandy Reina Jun 24, 2016 23:54 Sukhi Brito MD Jun 25, 2016 08:05
[2016-06-25] VITALS (8 sets, daily range): BP systolic 140–171; BP diastolic 65–82; PULSE 60–76; RESP 18–20; TEMP 96.6–98.6; O2SAT 92–100
[2016-06-25 03:35] LABS: AUTOMATED NEUTROPHIL # 4.9 TH/MM3 (1.8-7.7); BASOPHIL # 0.1 TH/MM3 (0-0.2); BASOPHIL % 1.1 % (0.0-2.0); EOSINOPHIL # 0.4 TH/MM3 (0-0.4); EOSINOPHIL % 5.3 % (0.0-4.0); HEMATOCRIT 29.8 % (35.0-46.0); HEMATOCRIT 30.2 % (35.0-46.0); HEMO FLAGS DIFF FINAL; LYMPH % 20.8 % (9.0-44.0); LYMPHOCYTE # 1.6 TH/MM3 (1.0-4.8); MEAN CELL VOLUME 87.1 FL (80.0-100.0); MEAN CORPUSCULAR HEMOGLOBIN 29.6 PG (27.0-34.0); MEAN CORPUSCULAR HGB CONC 33.9 % (32.0-36.0); MONO % 9.6 % (0.0-8.0); NEUT % 63.2 % (16.0-70.0); PLATELET COUNT 282 TH/MM3 (150-450); RED BLOOD COUNT 3.47 MIL/MM3 (4.00-5.30); RED CELL DISTRIBUTION WIDTH 14.7 % (11.6-17.2); REVIEW FLAG FINAL; WHITE BLOOD COUNT 7.8 TH/MM3 (4.0-11.0)
[2016-06-25 03:46] LABS: INTERNATIONAL NORMALIZED RATIO 4.3 RATIO; PROTHROMBIN TIME - PATIENT 50.7 SEC (9.8-11.6)
[2016-06-25 03:57] LABS: BICARBONATE 19.8 MEQ/L (21.0-32.0); POTASSIUM 4.8 MEQ/L (3.5-5.1)
[2016-06-25] MEDS: PANTOPRAZOLE INJ 80 MG in SODIUM CHLORIDE 0.9% INJ 100 ML IV SCH ×2 (05:51→17:45)
--- NOTE | 2016-06-25 08:55 | PD.CONS ---
HPI History of Present Illness This is a 80 year old female with a past medical history of hypothyroidism, Renae, duodenal ulcers, coronary artery disease, congestive heart failure, hyperlipidemia, atrial fibrillation ( on Coumadin), hypertension, sick sinus syndrome requiring pacemaker placement, stage V chronic renal disease, arthritis , and osteoporosis who presented to the emergency room for evaluation of black emesis that occurred at a SNF. States this was one time only and she didn't think it was a lot, although she told another provider it was projectile in nature. She denies any other associated symptoms including syncope, chest pain, palpitations, shortness of breath, abdomen pain, change in bowel, melena or hematochezia. H&H low but stable at 10.6/31.6 compared to previous visit on 2016 when it was 10.3/30.5, and this seems to be her baseline. She does have Coagulopathy with INR 4.3 today, PT of 50.7, APTT 48.2. She had EGD/colonoscopy in [address] Rivero and that revealed Renae's esophagus, HH, gastritis, duodenal ulcers, colon polyps, colon ulcer, internal hemorrhoids, BX benign acute inflammation and Renae. patient currently comfortable in bed, denies any GI issues, no more vomiting, she would like to go home, stating she really doesn't want EGD. She denies alcohol or NSAIDs (Alistair Wilcox) PFSH Past Medical History Hypothyroidism Coronary artery disease Congestive heart failure Hyperlipidemia Atrial fibrillation Hypertension Sick sinus syndrome requiring pacemaker placement Stage V chronic renal disease Arthritis Osteoporosis Renae Duodenal ulcer Past Surgical History Bilateral cataract removal Bilateral lens implants Pacemaker placement Left hip replacement 2011 Right knee replacement 2013 Tonsillectomy (Alistair Wilcox) Coded Allergies: CRESTOR (Unverified Allergy, Severe, 06/24/16) Coumadin (Unverified Allergy, Severe, 06/24/16) Lipitor (Unverified Allergy, Severe, 06/24/16) Motrin (Unverified Allergy, Severe, 06/24/16) Paxil (Unverified Allergy, Severe, 06/24/16) Medications Current Medications Medications (Trade) Dose Ordered Sig/Ariana Route Start Time Stop Time Status Last Admin (NS Flush) 2 ml UNSCH PRN FLUSH 06/24/16 20:45 (NS Flush) 2 ml BID FLUSH 06/24/16 21:00 06/24/16 21:42 (Zofran Inj) 4 mg Q6H PRN IVP 06/24/16 20:45 Naloxone HCl 0.4 mg 0.4 mg UNSCH PRN IV 06/24/16 20:45 Pantoprazole Sodium 80 mg/ Sodium Chloride 100 ml @ 10 mls/hr Q10H IV 06/24/16 21:45 06/25/16 05:51 (Rocephin Inj/NS Inj) 100 ml @ 200 mls/hr Q24H IV 06/25/16 21:00 Family History Mother and father with heart and lung disease . Social History No alcohol Tobacco: quit smoking over 60 years ago . (Alistair Wilcox) Review of Systems Constitutional: DENIES: Fever, Chills Endocrine: DENIES: Polyuria Eyes: DENIES: Double Vision Ears, nose, mouth, throat: DENIES: Hoarseness Respiratory: DENIES: Shortness of breath Cardiovascular: DENIES: Lower Extremity Edema Gastrointestinal: COMPLAINS OF: Nausea, Vomiting, Heartburn, Hematemesis, DENIES: Abdominal pain, Black stools, Bloody stools, Constipation, Diarrhea, Difficulty Swallowing, Anorexia, Odynophagia, Swelling of Abdomen Genitourinary: DENIES: Hematuria Musculoskeletal: DENIES: Joint Swelling Integumentary: DENIES: Rash Hematologic/lymphatic: COMPLAINS OF: Bruising Immunologic/allergic: DENIES: Eczema Neurologic: DENIES: Abnormal gait Psychiatric: DENIES: Anxiety (Alistair Wilcox) GI Exam Vitals I&O Vital Signs Date Time Temp Pulse Resp B/P Pulse Ox O2 Delivery O2 Flow Rate FiO2 06/25/16 07:36 96.6 75 19 162/73 93 06/25/16 05:49 97.1 70 18 166/72 93 06/25/16 02:33 97.1 70 18 171/82 94 06/25/16 02:25 73 06/25/16 00:53 60 18 167/74 100 06/24/16 20:50 97.6 63 16 157/78 95 Room Air 06/24/16 19:06 97.2 69 16 147/71 96 Room Air 06/24/16 19:06 72 16 147/71 95 Room Air 06/24/16 18:50 97.5 66 16 147/71 94 Laboratory Test 06/24/16 06/24/16 06/24/16 06/24/16 19:15 19:53 21:12 22:39 White Blood Count 7.5 TH/MM3 Red Blood Count 3.63 MIL/MM3 Hemoglobin 10.6 GM/DL 9.6 GM/DL Hematocrit 31.6 % 28.9 % Mean Corpuscular Volume 87.1 FL Mean Corpuscular Hemoglobin 29.2 PG Mean Corpuscular Hemoglobin 33.5 % Concent Red Cell Distribution Width 14.6 % Platelet Count 289 TH/MM3 Mean Platelet Volume 6.9 FL Neutrophils (%) (Auto) 74.5 % Lymphocytes (%) (Auto) 13.8 % Monocytes (%) (Auto) 8.5 % Eosinophils (%) (Auto) 2.4 % Basophils (%) (Auto) 0.8 % Neutrophils # (Auto) 5.6 TH/MM3 Lymphocytes # (Auto) 1.0 TH/MM3 Monocytes # (Auto) 0.6 TH/MM3 Eosinophils # (Auto) 0.2 TH/MM3 Basophils # (Auto) 0.1 TH/MM3 CBC Comment DIFF FINAL Differential Comment Prothrombin Time 45.8 SEC Prothromb Time International 3.9 RATIO Ratio Activated Partial 48.2 SEC Thromboplast Time Sodium Level 131 MEQ/L Potassium Level 5.2 MEQ/L Chloride Level 97 MEQ/L Carbon Dioxide Level 22.3 MEQ/L Anion Gap 12 MEQ/L Blood Urea Nitrogen 73 MG/DL Creatinine 4.20 MG/DL Estimat Glomerular Filtration 10 ML/MIN Rate Random Glucose 118 MG/DL Calcium Level 9.3 MG/DL Total Bilirubin 0.4 MG/DL Aspartate Amino Transf 25 U/L (AST/SGOT) Alanine Aminotransferase 12 U/L (ALT/SGPT) Alkaline Phosphatase 77 U/L Total Protein 7.8 GM/DL Albumin 2.8 GM/DL Lipase 159 U/L Urine Color YELLOW Urine Turbidity CLOUDY Urine pH 8.0 Urine Specific [place] 1.017 Urine Protein GREATER THAN 600 mg/dL Urine Glucose (UA) NEG mg/dL Urine Ketones NEG mg/dL Urine Occult Blood SMALL Urine Nitrite NEG Urine Bilirubin NEG Urine Urobilinogen LESS THAN 2.0 MG/DL Urine Leukocyte Esterase LARGE Urine RBC 22 /hpf Urine WBC /hpf Urine WBC Clumps FEW Urine Bacteria MOD /hpf Microscopic Urinalysis Comment CATH-CULTURE IND Blood Type O POSITIVE Antibody Screen NEGATIVE Test 06/25/16 03:19 White Blood Count 7.8 TH/MM3 Red Blood Count 3.47 MIL/MM3 Hemoglobin 10.2 GM/DL Hematocrit 30.2 % Mean Corpuscular Volume 87.1 FL Mean Corpuscular Hemoglobin 29.6 PG Mean Corpuscular Hemoglobin 33.9 % Concent Red Cell Distribution Width 14.7 % Platelet Count 282 TH/MM3 Mean Platelet Volume 6.7 FL Neutrophils (%) (Auto) 63.2 % Lymphocytes (%) (Auto) 20.8 % Monocytes (%) (Auto) 9.6 % Eosinophils (%) (Auto) 5.3 % Basophils (%) (Auto) 1.1 % Neutrophils # (Auto) 4.9 TH/MM3 Lymphocytes # (Auto) 1.6 TH/MM3 Monocytes # (Auto) 0.7 TH/MM3 Eosinophils # (Auto) 0.4 TH/MM3 Basophils # (Auto) 0.1 TH/MM3 CBC Comment DIFF FINAL Differential Comment Prothrombin Time 50.7 SEC Prothromb Time International 4.3 RATIO Ratio Sodium Level 133 MEQ/L Potassium Level 4.8 MEQ/L Chloride Level 102 MEQ/L Carbon Dioxide Level 19.8 MEQ/L Anion Gap 11 MEQ/L Blood Urea Nitrogen 79 MG/DL Creatinine 4.12 MG/DL Estimat Glomerular Filtration 10 ML/MIN Rate Random Glucose 89 MG/DL Calcium Level 9.0 MG/DL Date/Time Procedure Status Source Growth 06/24/16 19:53 Urine Culture Received Urine Catheterized Urine Pending Physical Examination HEENT: normocephalic; atraumatic; no jaundice. Throat is clear. NECK: Neck is supple, no JVD, no lymphadenopathy. CHEST: Chest is clear to auscultation and percussion. CARDIAC: Regular rate and rhythm with no murmur gallop or rubs. ABDOMEN: Soft, nondistended, nontender; no hepatosplenomegaly; bowel sounds are present in all four quadrants. EXTREMITIES: No clubbing, cyanosis, or edema. SKIN: bruising and ecchymosis STRIPPING SHOVEL OILER: No focal deficits; alert and oriented times three. (Alistair Wilcox) Assessment and Plan Plan - Hematemesis one episode of reported coffee ground emesis yesterday morning- no more since, she is feeling good, denies any GI issues for me H&H low but stable at 10.6/31.6 compared to previous visit on 06/21/2016 when it was 10.3/30.5, and this seems to be her baseline. She does have Coagulopathy with INR 4.3 today, PT of 50.7, APTT 48.2. She had EGD/ colonoscopy in [address] Rivero and that revealed Renae's esophagus, hiatal hernia, gastritis, duodenal ulcers, colon polyps, colon ulcer, internal hemorrhoids, BX benign acute inflammation and Renae. patient currently comfortable in bed, denies any GI issues, no more vomiting, she would like to go home, stating she really doesn't want EGD. She denies alcohol or NSAIDs - Chronic anemia- Base line around 10 - Supratherapeutic INR - INR 4.3, Coumadin on hold - Coagulopathy- INR 4.3 today, PT of 50.7, APTT 48.2. - UTI per attending - Hyponatremia, hyperkalemia per attending - CKD, stage V - A-fib, pacemaker, Coumadin on hold Plan: - Clear liquids - Patient is refusing EGD, stating she feels good, no signs of bleeding, hh stable - Cont. with protonix - Correct coagulopathy - Can f/u with GI as an OP - Monitor hh - Transfuse as needed - Notify GI for active bleeding - Patient seen and examined by Dr. Tolliver and myself and this note is written on his behalf. (Alistair Wilcox) Physician Comments Seen and examined with Ms. Brenden SHARIF, doing well. No bleeding or abdominal pain reported. Discussed egd with her. She doesnot want any interventions. Family in the room with her. Discussed with Dr. Patterson. Will sign off, reconsult as needed. Thank you (Kaylyn Tolliver MD) Alistair Wilcox Jun 25, 2016 08:55 Kaylyn Tolliver MD Jun 25, 2016 12:56
[2016-06-25] MEDS: SODIUM CHLORIDE 0.9% FLUSH 5 ML FLUSH FLUSH SCH ×2 (09:00→20:12)
--- NOTE | 2016-06-25 10:11 | HHI.PR ---
Subjective Remarks Follow up for GIB. The patient reports only 1 episode of hematemesis yesterday. No further episodes since. Denies abdominal pain, nausea. Discussed with GI Dr. Tolliver, patient refusing EGD at this time, recommended patient return on Coumadin when INR returns to therapeutic range. Objective Vitals Vital Signs Date Time Temp Pulse Resp B/P Pulse Ox O2 Delivery O2 Flow Rate FiO2 06/25/16 07:36 96.6 75 19 162/73 93 06/25/16 05:49 97.1 70 18 166/72 93 06/25/16 02:33 97.1 70 18 171/82 94 06/25/16 02:25 73 06/25/16 00:53 60 18 167/74 100 06/24/16 20:50 97.6 63 16 157/78 95 Room Air 06/24/16 19:06 97.2 69 16 147/71 96 Room Air 06/24/16 19:06 72 16 147/71 95 Room Air 06/24/16 18:50 97.5 66 16 147/71 94 Result Diagram: 06/25/1631806/25/16318 Objective Remarks GENERAL: Well-nourished, well-developed pleasant elderly female patient in [facility]. SKIN: Warm and dry. No rash. HEAD: Normocephalic. Atraumatic. EYES: Pupils equal and round. No scleral icterus. No injection or drainage. ENT: No nasal bleeding or discharge. Mucous membranes pink and moist. NECK: Supple. Trachea midline. CARDIOVASCULAR: Irregular rate and rhythm. S1, S2 noted. No murmur appreciated. RESPIRATORY: No accessory muscle use. Clear to auscultation. Breath sounds equal bilaterally. GASTROINTESTINAL: Abdomen soft, non-tender, nondistended. Normoactive bowel sounds x4. MUSCULOSKELETAL: No obvious deformities. Extremities without clubbing, cyanosis , or edema. NEUROLOGICAL: Awake and alert. No obvious cranial nerve deficits. Motor grossly within normal limits. Normal speech. PSYCHIATRIC: Appropriate mood and affect; insight and judgment normal. Medications and IVs Current Medications Medications (Trade) Dose Ordered Sig/Ariana Route Start Time Stop Time Status Last Admin (NS Flush) 2 ml UNSCH PRN FLUSH 06/24/16 20:45 (NS Flush) 2 ml BID FLUSH 06/24/16 21:00 06/24/16 21:42 (Zofran Inj) 4 mg Q6H PRN IVP 06/24/16 20:45 Naloxone HCl 0.4 mg 0.4 mg UNSCH PRN IV 06/24/16 20:45 Pantoprazole Sodium 80 mg/ Sodium Chloride 100 ml @ 10 mls/hr Q10H IV 06/24/16 21:45 06/25/16 05:51 (Rocephin Inj/NS Inj) 100 ml @ 200 mls/hr Q24H IV 06/25/16 21:00 Urinary Catheter: No Vascular Central Line Catheter: No A/P Problem List: (1) Hematemesis ICD Code: K92.0 Status: Acute (2) UTI (urinary tract infection) ICD Code: N39.0 Status: Acute (3) Supratherapeutic INR ICD Code: R79.1 Status: Acute (4) Anemia ICD Code: D64.9 Status: Acute (5) CKD (chronic kidney disease), stage V ICD Code: N18.5 Status: Acute (6) Hyperkalemia ICD Code: E87.5 Status: Acute Assessment and Plan 80 year old female with a past medical history of hypothyroidism, CAD, CHF, afib on Coumadin, HTN, sick sinus syndrome requiring pacemaker placement, stage V CKD, arthritis, and osteoporosis who presented on 06/24/2016 for episode of black emesis that occurred while she was at [facility]. H&H stable at 10.6/31.6 compared to previous visit on 06/21/2016 when it was 10.3/30.5. Coagulopathy with INR 3.9, PTT 45.8, and APTT 48.2. Potassium slightly elevated at 5.2 with hemolysis noted by lab. Hyponatremia noted with sodium 131 Hematemesis: suspected. On Protonix drip IV. Consult gastroenterology, Discussed with GI Dr. Tolliver, patient refusing EGD at this time, recommended patient return on Coumadin when INR returns to therapeutic range. Monitor serial H&H. Advance diet. Continue to hold coumadin for now. UTI: Urinalysis with blood, leukocyte esterase and a moderate amount of bacteria. Continue IV Rocephin. Await results of urine culture and adjust treatment. Supratherapeutic INR: on anticoagulation with coumadin at discharge from our hospital for afib/ recurrent TIAs. Hold Coumadin for now. Recheck PT/INR in a.m , restart when < 3.0. Anemia: appears chronic based on previous labs. H&H stable at 10.6/31.6 compared to previous visit on 06/21/2016 when it was 10.3/30.5. Monitor serial H& H. Type and screen. CKD, stage V: has seen Dr. Andrea Betancourt during previous admission; consult if needed, plan to start dialysis in the future but not needed at this time. Monitor BMP. Avoid nephrotoxins Hyperkalemia: Potassium 5.2 on admission. Likely secondary to hemolysis. Repeat K 4.8. Resolved. Atrial Fibrillation: chronic, continue patient's Cardizem. All other medical conditions stable, continue home medications as appropriate. DVT prophylaxis: SCDs for now with supratherapeutic INR on Coumadin Written by Shonna Bryant, acting as scribe for Dr. Patterson on 06/25/16 at 10:10. The documentation accurately reflects the work performed [id number] by me Dr. Patterson on 06/25/16 at 10:10. Problem Qualifiers (1) UTI (urinary tract infection): Qualified Code: N30.01 - Acute cystitis with hematuria (2) Anemia: Qualified Code: D64.9 - Anemia, unspecified type Shonna Bryant PA-C Jun 25, 2016 10:11 Kelin Patterson MD Jun 25, 2016 16:45
[2016-06-25 10:55] LABS: HEMATOCRIT 29.6 % (35.0-46.0); REVIEW FLAG FINAL
[2016-06-25] MEDS ORDERED: OXYC1TAB63 PO (13:01)
[2016-06-25] MEDS ORDERED: COLA100C3 PO (13:02)
[2016-06-25] MEDS ORDERED: ALBUTEROL SULFATE 90 MCG/ACT HFA 8 GM INHALER INH PRN (14:45)
[2016-06-25 14:57] LABS: HEMATOCRIT 29.3 % (35.0-46.0); REVIEW FLAG FINAL
[2016-06-25] MEDS: DILTIAZEM-CD 240 MG CAP ER PO SCH (15:40)
[2016-06-25] MEDS: cefTRIAXone INJ 1,000 MG in SODIUM CHLORIDE 0.9% INJ 100 ML IV SCH (20:11)
[2016-06-25] MEDS: oxyCODONE/ACETAMINOPHEN 5 MG/325 MG TAB PO PRN (20:11)
[2016-06-25] MEDS: DOCUSATE SODIUM 100 MG CAP PO SCH (20:12)
[2016-06-25 22:32] LABS: HEMATOCRIT 27.7 % (35.0-46.0); REVIEW FLAG FINAL
[2016-06-26] VITALS (7 sets, daily range): BP systolic 131–155; BP diastolic 64–102; PULSE 65–85; RESP 18–20; TEMP 96–98.3; O2SAT 91–97
[2016-06-26 04:15] LABS: AUTOMATED NEUTROPHIL # 4.2 TH/MM3 (1.8-7.7); BASOPHIL # 0.1 TH/MM3 (0-0.2); BASOPHIL % 1.3 % (0.0-2.0); EOSINOPHIL # 0.6 TH/MM3 (0-0.4); HEMATOCRIT 28.6 % (35.0-46.0); HEMO FLAGS DIFF FINAL; LYMPH % 22.4 % (9.0-44.0); LYMPHOCYTE # 1.6 TH/MM3 (1.0-4.8); MEAN CELL VOLUME 87.3 FL (80.0-100.0); MEAN CORPUSCULAR HEMOGLOBIN 29.2 PG (27.0-34.0); MEAN CORPUSCULAR HGB CONC 33.4 % (32.0-36.0); MONO % 8.6 % (0.0-8.0); NEUT % 59.7 % (16.0-70.0); PLATELET COUNT 290 TH/MM3 (150-450); RED BLOOD COUNT 3.27 MIL/MM3 (4.00-5.30); RED CELL DISTRIBUTION WIDTH 14.7 % (11.6-17.2)
[2016-06-26 04:29] LABS: INTERNATIONAL NORMALIZED RATIO 5.5 RATIO; PROTHROMBIN TIME - PATIENT 66.1 SEC (9.8-11.6)
[2016-06-26] MEDS: PANTOPRAZOLE INJ 80 MG in SODIUM CHLORIDE 0.9% INJ 100 ML IV SCH ×3 (04:35→23:45)
[2016-06-26 04:41] LABS: BICARBONATE 22.1 MEQ/L (21.0-32.0); POTASSIUM 4.4 MEQ/L (3.5-5.1)
[2016-06-26] MEDS: LEVOTHYROXINE SODIUM 75 MCG TAB PO SCH (05:30)
[2016-06-26] MEDS: oxyCODONE/ACETAMINOPHEN 5 MG/325 MG TAB PO PRN ×2 (05:51→18:05)
[2016-06-26] MEDS ORDERED: PILL SPLITTER OTHER PRN (08:15)
[2016-06-26] MEDS: SODIUM CHLORIDE 0.9% FLUSH 5 ML FLUSH FLUSH SCH ×2 (09:00→20:22)
[2016-06-26] MEDS ORDERED: PHYTONADIONE 5 MG TAB PO ONE (09:00)
[2016-06-26] MEDS: OXYBUTYNIN CHLORIDE 5 MG TAB PO SCH (09:25)
[2016-06-26] MEDS: LORATADINE 10 MG TAB PO SCH (09:25)
[2016-06-26] MEDS: DOCUSATE SODIUM 100 MG CAP PO SCH ×2 (09:25→20:22)
[2016-06-26] MEDS: DILTIAZEM-CD 240 MG CAP ER PO SCH (09:25)
--- NOTE | 2016-06-26 10:28 | HHI.PR ---
Subjective Remarks Follow-up for GI bleed. Daughter at bedside. No further GI bleeding overnight. Patient has no acute complaints today. Objective Vitals Vital Signs Date Time Temp Pulse Resp B/P Pulse Ox O2 Delivery O2 Flow Rate FiO2 06/26/16 09:14 96.6 73 18 139/81 91 06/26/16 04:37 98.3 73 20 153/72 95 06/26/16 00:38 97.4 65 20 131/64 95 06/25/16 19:38 98.6 76 20 144/68 95 06/25/16 15:54 96.8 69 18 140/67 96 06/25/16 12:44 96.8 70 18 147/65 92 Result Diagram: 06/26/1640006/26/16400 Objective Remarks GENERAL: Well-developed well-nourished. In no acute distress. SKIN: Warm and dry. No lesions noted. HEENT: Normocephalic. Pupils equal and round. Mucous membranes pink and moist. CARDIOVASCULAR: Regular rate and rhythm. No murmur appreciated. RESPIRATORY: No accessory muscle use. Clear to auscultation. Breath sounds equal bilaterally. GASTROINTESTINAL: Abdomen soft, non-tender, nondistended. Bowel sounds x4. MUSCULOSKELETAL: No obvious deformities. No clubbing or cyanosis. No edema. NEUROLOGICAL: Awake and alert. No focal neurological deficits. Moves upper and lower extremities spontaneously. Normal speech. PSYCHIATRIC: Appropriate mood and affect; insight and judgment fair to normal. A/P Problem List: (1) Hematemesis ICD Code: K92.0 Status: Acute (2) UTI (urinary tract infection) ICD Code: N39.0 Status: Acute (3) Supratherapeutic INR ICD Code: R79.1 Status: Acute (4) Anemia ICD Code: D64.9 Status: Acute (5) CKD (chronic kidney disease), stage V ICD Code: N18.5 Status: Acute (6) Hyperkalemia ICD Code: E87.5 Status: Acute Assessment and Plan 80 year old female with a past medical history of hypothyroidism, CAD, CHF, afib on Coumadin, HTN, sick sinus syndrome requiring pacemaker placement, stage V CKD, arthritis, and osteoporosis who presented on 06/24/2016 for episode of black emesis that occurred while she was at [facility]. H&H stable at 10.6/31.6 compared to previous visit on 06/21/2016 when it was 10.3/30.5. Coagulopathy with INR 3.9, PTT 45.8, and APTT 48.2. Potassium slightly elevated at 5.2 with hemolysis noted by lab. Hyponatremia noted with sodium 131 Hematemesis: suspected. On Protonix drip IV. Consulted gastroenterology, seen by Dr. Tolliver, patient refusing EGD at this time, GI recommended patient return on Coumadin when INR returns to therapeutic range. Monitor serial H&H. Advance diet. Continue to hold coumadin for now. UTI: Urinalysis with blood, leukocyte esterase and a moderate amount of bacteria. Continue IV Rocephin. Await results of urine culture and adjust treatment. Supratherapeutic INR: On anticoagulation with Coumadin at discharge from our hospital for afib/recurrent TIAs. INR increased from 1.2 on 06/22-3.9 on 06/24. Holding Coumadin. INR continues to increase to 5.5 today. With possible GI bleeding as above, give 2.5 mg vitamin K. Continue monitor INRs. Anemia: Acute on chronic. Hemoglobin 10.3/4, temp 0.6 upon admission. Monitoring serial H&H's. Hemoglobin slightly decreased at 9.6 today. We'll continue to monitor, transfuse if needed. CKD, stage V: has seen Dr. Andrea Betancourt during previous admission; consult if needed, plan to start dialysis in the future but not needed at this time. Monitor BMP. Avoid nephrotoxins Hyperkalemia: Potassium 5.2 on admission. Likely secondary to hemolysis. Repeat K within normal limits. Resolved. Atrial Fibrillation: chronic, continue patient's Cardizem. Hyponatremia: Acute on chronic. Currently improved to 138. Improved previously with fluid restriction, and ETT and fluid restrictions of sodium decreases again. All other medical conditions stable at this time, continue home medications as appropriate. DVT prophylaxis: SCDs for now with supratherapeutic INR on Coumadin Written by Jeff Jennings, acting as scribe for Dr. Patterson on 06/26/16 at 10:27. The documentation accurately reflects the work performed [id number] by me Dr. Patterson on 06/26/16 at 10:27. Discharge Planning Discharge back to SNF if patient remains stable and when INR stabilizes. Problem Qualifiers (1) UTI (urinary tract infection): Qualified Code: N30.01 - Acute cystitis with hematuria (2) Anemia: Qualified Code: D64.9 - Anemia, unspecified type Jeff Jennings Jun 26, 2016 10:28 Kelin Patterson MD Jun 26, 2016 11:29
[2016-06-26] MEDS: cefTRIAXone INJ 1,000 MG in SODIUM CHLORIDE 0.9% INJ 100 ML IV SCH (20:22)
[2016-06-27 04:00] VITALS: BP 139/72; PULSE 76; RESP 16; TEMP 97.5; O2SAT 94
[2016-06-27] MEDS: LEVOTHYROXINE SODIUM 75 MCG TAB PO SCH (06:44)
[2016-06-27 08:01] LABS: AUTOMATED NEUTROPHIL # 4.7 TH/MM3 (1.8-7.7); BASOPHIL # 0.1 TH/MM3 (0-0.2); BASOPHIL % 0.8 % (0.0-2.0); EOSINOPHIL # 0.5 TH/MM3 (0-0.4); EOSINOPHIL % 7.1 % (0.0-4.0); HEMATOCRIT 27.5 % (35.0-46.0); HEMO FLAGS DIFF FINAL; LYMPH % 18.8 % (9.0-44.0); LYMPHOCYTE # 1.4 TH/MM3 (1.0-4.8); MEAN CELL VOLUME 86.7 FL (80.0-100.0); MEAN CORPUSCULAR HEMOGLOBIN 29.3 PG (27.0-34.0); MEAN CORPUSCULAR HGB CONC 33.8 % (32.0-36.0); MONO % 7.9 % (0.0-8.0); NEUT % 65.4 % (16.0-70.0); PLATELET COUNT 307 TH/MM3 (150-450); RED BLOOD COUNT 3.17 MIL/MM3 (4.00-5.30); RED CELL DISTRIBUTION WIDTH 14.6 % (11.6-17.2); WHITE BLOOD COUNT 7.2 TH/MM3 (4.0-11.0)
[2016-06-27 08:02] LABS: INTERNATIONAL NORMALIZED RATIO 1.8 RATIO; PROTHROMBIN TIME - PATIENT 20.1 SEC (9.8-11.6)
[2016-06-27 08:25] LABS: BICARBONATE 20.1 MEQ/L (21.0-32.0); POTASSIUM 4.3 MEQ/L (3.5-5.1)
[2016-06-27 08:37] VITALS: BP 142/67; PULSE 80; RESP 20; TEMP 97.6; O2SAT 97
[2016-06-27] MEDS ORDERED: PANTOPRAZOLE SOD 40 MG DELAYED RELEASE TAB PO SCH (09:00)
[2016-06-27] MEDS: SODIUM CHLORIDE 0.9% FLUSH 5 ML FLUSH FLUSH SCH (09:00)
[2016-06-27] MEDS ORDERED: CEFUROXIME AXETIL 250 MG TAB PO SCH (09:00)
[2016-06-27] MEDS: DILTIAZEM-CD 240 MG CAP ER PO SCH (09:26)
[2016-06-27] MEDS: LORATADINE 10 MG TAB PO SCH (09:26)
[2016-06-27] MEDS: OXYBUTYNIN CHLORIDE 5 MG TAB PO SCH (09:26)
[2016-06-27] MEDS: DOCUSATE SODIUM 100 MG CAP PO SCH (09:26)
[2016-06-27] MEDS: oxyCODONE/ACETAMINOPHEN 5 MG/325 MG TAB PO PRN (10:13)
[2016-06-27] MEDS ORDERED: CEFT250T8 PO (11:05)
[2016-06-27] MEDS ORDERED: WARF-58 PO (11:05)
[2016-06-27] MEDS ORDERED: PANT40TA3 PO (11:08)
--- NOTE | 2016-06-27 11:14 | HHI.DS ---
Discharge Summary Admission Date Jun 24, 2016 at 20:43 Discharge Date: Jun 27, 2016 Admitting Diagnosis Coffee Ground Emesis, Cystitis, INR 3.9 (1) Hematemesis ICD Code: K92.0 Diagnosis: Principal (2) UTI (urinary tract infection) ICD Code: N39.0 Diagnosis: Secondary (3) Supratherapeutic INR ICD Code: R79.1 Diagnosis: Principal (4) Anemia ICD Code: D64.9 Diagnosis: Principal (5) CKD (chronic kidney disease), stage V ICD Code: N18.5 Diagnosis: Secondary (6) Hyperkalemia ICD Code: E87.5 Diagnosis: Secondary Procedures none Brief History - From Admission Ms. Haq is an 80 year old female with a past medical history of hypothyroidism, coronary artery disease, congestive heart failure, hyperlipidemia, atrial fibrillation, hypertension, sick sinus syndrome requiring pacemaker placement, stage V chronic renal disease, arthritis, and osteoporosis who presented to the emergency room on 06/24/2016 for evaluation of black emesis that occurred while she was at [facility]. H&H stable at 10.6/31.6 compared to previous visit on 06/21/2016 when it was 10.3/30.5. Coagulopathy with INR 3.9, PTT 45.8, and APTT 48.2. Potassium slightly elevated at 5.2 with hemolysis noted by lab. Hyponatremia noted with sodium 131 The patient is seen in the emergency room. She states she was at [facility] facility when she projectile vomited across the room. She reports vomitus to be black in color. She states that the staff there called emergency medical services and she was transported to the hospital. Symptoms were severe but she states that she immediately felt better after vomiting. She denies syncope, chest pain, palpitations, shortness of breath, black or tarry stool, or abdominal pain. . CBC/BMP: 06/27/16 0626 06/27/16 0626 Significant Findings Laboratory Tests Test 06/24/16 06/24/16 06/24/16 06/25/16 19:15 19:53 22:39 03:19 Red Blood Count 3.63 MIL/MM3 3.47 MIL/MM3 (4.00-5.30) (4.00-5.30) Hemoglobin 10.6 GM/DL 9.6 GM/DL 10.2 GM/DL (11.6-15.3) (11.6-15.3) (11.6-15.3) Hematocrit 31.6 % 28.9 % 30.2 % (35.0-46.0) (35.0-46.0) (35.0-46.0) Mean Platelet Volume 6.9 FL 6.7 FL (7.0-11.0) (7.0-11.0) Neutrophils (%) (Auto) 74.5 % (16.0-70.0) Monocytes (%) (Auto) 8.5 % (0.0-8.0) 9.6 % (0.0-8.0) Prothrombin Time 45.8 SEC 50.7 SEC (9.8-11.6) (9.8-11.6) Activated Partial 48.2 SEC Thromboplast Time (24.3-30.1) Sodium Level 131 MEQ/L 133 MEQ/L (136-145) (136-145) Potassium Level 5.2 MEQ/L (3.5-5.1) Chloride Level 97 MEQ/L (98-107) Blood Urea Nitrogen 73 MG/DL (7-18) 79 MG/DL (7-18) Creatinine 4.20 MG/DL 4.12 MG/DL (0.50-1.00) (0.50-1.00) Estimat Glomerular Filtration 10 ML/MIN (>89) 10 ML/MIN (>89) Rate Random Glucose 118 MG/DL (74-106) Albumin 2.8 GM/DL (3.4-5.0) Urine Turbidity CLOUDY (CLEAR) Urine Protein GREATER THAN 600 mg/dL (NEG-TRACE) Urine Occult Blood SMALL (NEG) Urine Leukocyte Esterase LARGE (NEG) Urine RBC 22 /hpf (0-3) Urine WBC Clumps FEW (NONE) Urine Bacteria MOD /hpf (NONE) Eosinophils (%) (Auto) 5.3 % (0.0-4.0) Carbon Dioxide Level 19.8 MEQ/L (21.0-32.0) Test 06/25/16 06/25/16 06/25/16 06/26/16 10:26 14:20 21:57 04:01 Hemoglobin 9.9 GM/DL 9.8 GM/DL 9.3 GM/DL 9.6 GM/DL (11.6-15.3) (11.6-15.3) (11.6-15.3) (11.6-15.3) Hematocrit 29.6 % 29.3 % 27.7 % 28.6 % (35.0-46.0) (35.0-46.0) (35.0-46.0) (35.0-46.0) Red Blood Count 3.27 MIL/MM3 (4.00-5.30) Mean Platelet Volume 6.5 FL (7.0-11.0) Monocytes (%) (Auto) 8.6 % (0.0-8.0) Eosinophils (%) (Auto) 8.0 % (0.0-4.0) Eosinophils # (Auto) 0.6 TH/MM3 (0-0.4) Prothrombin Time 66.1 SEC (9.8-11.6) Blood Urea Nitrogen 78 MG/DL (7-18) Creatinine 4.17 MG/DL (0.50-1.00) Estimat Glomerular Filtration 10 ML/MIN (>89) Rate Test 06/27/16 06:26 Red Blood Count 3.17 MIL/MM3 (4.00-5.30) Hemoglobin 9.3 GM/DL (11.6-15.3) Hematocrit 27.5 % (35.0-46.0) Mean Platelet Volume 6.5 FL (7.0-11.0) Eosinophils (%) (Auto) 7.1 % (0.0-4.0) Eosinophils # (Auto) 0.5 TH/MM3 (0-0.4) Prothrombin Time 20.1 SEC (9.8-11.6) Carbon Dioxide Level 20.1 MEQ/L (21.0-32.0) Blood Urea Nitrogen 72 MG/DL (7-18) Creatinine 4.05 MG/DL (0.50-1.00) Estimat Glomerular Filtration 11 ML/MIN (>89) Rate PE at Discharge GENERAL: Well-developed well-nourished. In no acute distress. SKIN: Warm and dry. No lesions noted. HEENT: Normocephalic. Pupils equal and round. Mucous membranes pink and moist. CARDIOVASCULAR: Regular rate and rhythm. No murmur appreciated. RESPIRATORY: No accessory muscle use. Clear to auscultation. Breath sounds equal bilaterally. GASTROINTESTINAL: Abdomen soft, non-tender, nondistended. Bowel sounds x4. MUSCULOSKELETAL: No obvious deformities. No clubbing or cyanosis. No edema. NEUROLOGICAL: Awake and alert. No focal neurological deficits. Moves upper and lower extremities spontaneously. Normal speech. PSYCHIATRIC: Appropriate mood and affect; insight and judgment fair to normal. Pt update on day of discharge Patient denies any further vomiting or bleeding overnight. Tolerating oral intake with no difficulties. Wants to go back to rehabilitation. Hospital Course 80 year old female with a past medical history of hypothyroidism, CAD, CHF, afib on Coumadin, HTN, sick sinus syndrome requiring pacemaker placement, stage V CKD, arthritis, and osteoporosis who presented on 06/24/2016 for episode of black emesis that occurred while she was at [facility]. H&H stable at 10.6/31.6 compared to previous visit on 06/21/2016 when it was 10.3/30.5. Coagulopathy with INR 3.9, PTT 45.8, and APTT 48.2. Potassium slightly elevated at 5.2 with hemolysis noted by lab. Hyponatremia noted with sodium 131 Hematemesis: suspected, likely from elevated INR. Given Protonix drip IV, changed to oral Protonix. Consulted gastroenterology, seen by Dr. Tolliver, patient refusing EGD at this time, GI recommended patient return on Coumadin when INR returns to therapeutic range. Monitored serial H&H, remained stable. Advanced diet. Cautious monitoring of INR and Coumadin. UTI: Urine culture with Proteus mirabilis and Enterobacter aerogenes, sensitive to cephalosporins. Received IV Rocephin 3, continue oral Ceftin. Coagulopathy: Supratherapeutic INR, trended up to 5.5. Likely contributing to possible GI bleeding as above. On anticoagulation with Coumadin at recent discharge from our hospital for afib/recurrent TIAs. Given 2.5 mg vitamin K. INR now 1.8. Was on warfarin 5 mg, decrease to 3 mg. Continue daily INR monitoring as outpatient and continue to adjust Coumadin dosage. Anemia: Acute on chronic. Monitored serial hemoglobins and hematocrits. Baseline hemoglobin around 10. Hemoglobin remained stable 910 during admission. CKD, stage V: has seen Dr. Andrea Betancourt during previous admission; plan to start dialysis in the future but not needed at this time. Monitor BMP. Avoid nephrotoxins. Continue outpatient follow-up Hyperkalemia: Potassium 5.2 on admission. Likely secondary to hemolysis. Repeat K within normal limits. Resolved. Atrial Fibrillation: chronic, continue patient's Cardizem. Hyponatremia: Acute on chronic. Currently improved to 138. Improved previously with fluid restriction, and ETT and fluid restrictions of sodium decreases again. All other medical conditions stable at this time, continue home medications as appropriate. Pt Condition on Discharge: Stable Discharge Disposition: Discharge to SNF Discharge Time: > 30 minutes Discharge Instructions DIET: Follow Instructions for: Coumadin (Warfarin) Diet, Renal Failure Diet Activities you can perform: Regular-No Restrictions Follow up Referrals: PCP Follow-up - 2-3 Days with Bahman Grullon MD New Orders: PT/INR - Next Day PT/INR - 07/01/16 PT/INR - 07/03/16 New Medications: Docusate Sodium (Colace) 100 Mg Cap 100 MG PO BID Constipation #60 Ref 0 CAP Warfarin (Warfarin) 3 Mg Tab 3 MG PO DAILY Blood Clot Prevention #30 Ref 0 TAB Cefuroxime (Ceftin) 250 Mg Tab 250 MG PO Q12HR uti Days 3 TAB Pantoprazole (Pantoprazole) 40 Mg Tab 40 MG PO DAILY Reflux #30 TAB Continued Medications: Albuterol 18 GM Inh (Ventolin Hfa 18 GM Inh) 90 Mcg/Act Aer 2 PUFF INH Q4-6H PRN SHORTNESS OF BREATH #1 Ref 0 INHALER Cyclobenzaprine (Flexeril) 5 Mg Tab 5 MG PO TID Muscle Spasm #90 Ref 0 TAB Diltiazem CD 24 HR (Cardizem CD 24 HR) 240 Mg Caper 240 MG PO DAILY #30 Ref 0 CAP Levothyroxine (Levothyroxine) 75 Mcg Tab 75 MCG PO DAILY Thyroid #30 Ref 0 TAB Loratadine (Claritin) 10 Mg Cap 10 MG PO DAILY Allergy Management Ref 0 CAP Miconazole 3 Vaginal Cream (Monistat 3 Vaginal Cream) 4 % Cream 1 APPL VAGINAL HS Infection #1 Ref 0 BOX Oxybutynin (Ditropan) 5 Mg Tab 5 MG PO DAILY Urinary Symptom Managemen #60 Ref 0 TAB Oxycodone-Acetaminophen (Oxycodone-Acetaminophen) 5-325 mg Tab 1 TAB PO Q6H PRN PAIN SCALE 3 TO 10 #30 TAB (This prescription has been renewed) Discontinued Medications: Warfarin (Coumadin) 5 Mg Tab 5 MG PO DAILY@16 Blood Clot Prevention #30 TAB Additional Information Written by Jeff Jennings, acting as scribe for Dr. Patterson on 06/27/16 at 11:14. The documentation accurately reflects the work performed [id number] by de Dr. Patterson on 06/27/16 at 11:14. Jeff Jennings Jun 27, 2016 11:14 Kelin Patterson MD Jun 27, 2016 17:16
== END 2016-06-27 15:14 | disposition home or self-care (01) ==
LOC: NEPC 18:48 → NEDA 20:43 → NEDH 06-25 00:43 → NEPGCP 06-25 02:23
PROVIDERS: ADMIT Hospitalist; ATTEND Hospitalist
DX: K92.0 Hematemesis (principal); N30.01 Acute cystitis with hematuria; R79.1 Abnormal coagulation profile; D64.9 Anemia, unspecified; E87.5 Hyperkalemia; B96.4 Proteus (mirabilis) (morganii) as the cause of diseases classified elsewhere; B96.89 Other specified bacterial agents as the cause of diseases classified elsewhere; I25.10 Atherosclerotic heart disease of native coronary artery without angina pectoris; I48.91 Unspecified atrial fibrillation; I49.5 Sick sinus syndrome; I13.2 Hypertensive heart and chronic kidney disease with heart failure and with stage 5 chronic kidney disease, or end stage renal disease; I50.9 Heart failure, unspecified; N18.5 Chronic kidney disease, stage 5; E78.00 Pure hypercholesterolemia, unspecified; M19.90 Unspecified osteoarthritis, unspecified site; R26.9 Unspecified abnormalities of gait and mobility; Z95.0 Presence of cardiac pacemaker; Z79.01 Long term (current) use of anticoagulants
CPT/HCPCS: 80048; 80053; 81001; 83690; 85014; 85018; 85025; 85610; 85730; 86850; 86900; 86901; 87077; 87086; 87186; 96374; 97163; 99284; C9113; G0378; G8987; G8988; J0696; J2405; P9612